=== PATIENT | male | born 1975 | race Caucasian/White ===

== ENCOUNTER 2023-05-08 10:08 | Day surgery (SDC) | payer OTHER, SELFPAY ==
--- NOTE | 2023-05-08 08:58 | W.PM.PROCNOT ---
Date of procedure: 05/08/23 Procedure: Bilateral Cervical 5/6 & 6/7 facet injection Preop diagnosis includes pain secondary to cervical spondylosis, Postop diagnosis same Under fluoroscopic guidance Solution injected: 2millilitersMarcaine 0.25% Anesthesia :none Immediate complications none Time out process compliant After informed consent obtained from the patient placed in the Prone proposition . area was prepped and draped in a sterile fashion using betadine. 25 gauge spinal needle inserted over each of the above mentioned target areas . [place] were directed towards the target under fluoroscopic guidance . after encountering each of the targets , no indication of intravascular intraneuronal or intrathecal needle tip placement. Then 0 .5 to 1 Milliliter was injected at each level. Arlington removed postoperatively. patient transferred to recovery in stable condition to be discharged home after meeting criteria Surgeon: Obed Reyes
[2023-05-08 10:26] VITALS: BP 116/79; PULSE 95; RESP 16; TEMP 36.7; O2SAT 96
[2023-05-08 11:13] VITALS: BP 127/60; PULSE 81; RESP 20; O2SAT 98
[2023-05-08 11:14] VITALS: RESP 20; O2SAT 98
[2023-05-08] MEDS: BUPIVACAINE HCL 0.25% PF 25 MG/10 ML VIAL 8 ML INJ (11:15)
[2023-05-08 11:18] VITALS: BP 114/56; PULSE 75
== END 2023-05-08 11:24 | disposition home or self-care (01) ==
LOC: SURGOUT 10:09
PROVIDERS: PCP Internal Medicine; Visit Provider Anesthesiology Pain Medicine
DX: M47.812 Spondylosis without myelopathy or radiculopathy, cervical region (principal)
CPT/HCPCS: 64490; 64491

== ENCOUNTER 2023-05-31 13:38 | Outpatient (OUT) | payer OTHER, SELFPAY ==
--- NOTE | 2023-05-31 14:20 | PM.CN ---
Consult Note: HPI Data of Consult Patient: known to practice within the last 3 years Consult date: 05/31/23 Requesting Physician: SOLOMON PEREZ NP Primary Care Provider: CHARLIE REA Consult Narrative Narrative: Here for f/u of bilat cervical MBB C5/6, C6/7 . He received 80% relief of pain for several hours after procedure along with increased fx. He would like to proceed with RFA. Procedure discussed in detail. Pain is located bilat neck pain worse with ROM, R>L . No new sensorimotor or bowel or bladder issues. No adverse med SE. Medications assist patient to be able to complete ADLs cc:: CC: SOLOMON PEREZ NP Review of Systems ROS Status of ROS 10 or more systems reviewed and unremarkable except as noted in history and below Musculoskeletal Reports: neck pain PFSH PFSH Medical History (Updated 05/31/23 @ 14:31 by SOLOMON PEREZ NP) Surgical History Meds Home Medications and Allergies Home Medications Medication Instructions Recorded Confirmed Type Lactobacillus acidophilus 10 10,000 mmu cells PO DAILY 05/01/23 05/08/23 History billion cell capsule (NewFlora) acetaminophen 650 mg 1,300 mg PO Q12H PRN pain 05/01/23 05/08/23 History tablet,extended release (8 Hour Pain Reliever) baclofen 10 mg tablet 10 mg PO BID PRN muscle spasm 05/01/23 05/08/23 History cholecalciferol (vitamin D3) 1,250 mcg PO .QD 05/01/23 History mcg/3 mL (50,000 unit/3 mL) oral drops gabapentin 400 mg capsule 400 mg PO TID 05/01/23 05/08/23 History glucosamine-chondroitin 250 mg-200 1 tab PO .AM 05/01/23 05/08/23 History mg tablet (Osteo Bi-Flex) lorazepam 1 mg tablet (Ativan) 1 mg PO BID PRN anxiety 05/01/23 05/08/23 History multivitamin 1 tab PO DAILY 05/01/23 05/08/23 History omega-3 fatty acids 500 mg PO DAILY 05/01/23 05/08/23 History quetiapine 50 mg tablet (Seroquel) 75 mg PO .HS 05/01/23 05/08/23 History sertraline 100 mg tablet (Zoloft) 100 mg PO DAILY 05/01/23 05/08/23 History vitamin B complex (Complex B-100 1 tab PO DAILY 05/01/23 05/08/23 History tablet,extended release) fluticasone 250 mcg-salmeterol 50 inhalation 05/08/23 History mcg/dose blistr powdr for inhalation (Advair Diskus) Allergies Allergy/AdvReac Type Severity Reaction Status Date / Time Penicillins Allergy Mild Verified 05/08/23 10:23 Sulfa (Sulfonamide Allergy Mild Verified 05/08/23 10:23 Antibiotics) diclofenac Allergy Verified 05/08/23 10:23 pregabalin [From Lyrica] Allergy Verified 05/08/23 10:23 Exam Constitutional Documenting provider has reviewed patient's vital signs: yes Common normals: no apparent distress, average body habitus, oriented x3, healthy appearing, alert and well nourished Orientation/consciousness: Yes awake, Yes oriented to person, Yes oriented to place and Yes oriented to time HENMT Common normals: normocephalic and moist oral mucous membranes Neck & C-Spine Common normals: supple Cervical spine: pain with cervical ROM, cervical spine tenderness, paracervical muscle tenderness and paracervical muscle spasm Other: muscle strength 3/5 bilat LE with intact sensation no arm drift BLANCA- 80 no radiculopathy Respiratory Common normals: normal respiratory effort, no retractions and no use of accessory muscles Effort & inspection: able to speak in complete sentences and symmetric chest movement Extremity Common normals: normal to inspection, normal capillary refill and no pedal edema Assessment and Plan Assessment and Plan (1) Cervical spondylosis: (2) Muscle spasm: Plan right cervical RFA C5/6 C6/7 under fluoroscopy followed by left
== END 2023-05-31 13:39 | disposition home or self-care (01) ==
LOC: PM 13:51
PROVIDERS: PCP Internal Medicine; Visit Provider Nurse Practitioner
DX: M47.812 Spondylosis without myelopathy or radiculopathy, cervical region (principal); M62.838 Other muscle spasm
CPT/HCPCS: G0463

== ENCOUNTER 2023-07-24 10:36 | Day surgery (SDC) | payer OTHER, SELFPAY ==
[2023-07-24 10:46] VITALS: BP 108/73; PULSE 86; RESP 16; TEMP 36.8; O2SAT 97
[2023-07-24] MEDS: 0.9 % SODIUM CHLORIDE 500 ML 50 ML IV (10:55)
[2023-07-24] MEDS: LIDOCAINE HCL 2% 400 MG/20 ML MDV 15 ML INJ (11:53)
[2023-07-24] MEDS: BUPIVACAINE HCL 0.25% PF 25 MG/10 ML VIAL INJ (11:53)
[2023-07-24] MEDS: METHYLPREDNISOLONE ACETATE 40 MG/ML VIAL INJ (11:54)
[2023-07-24 12:16] VITALS: BP 90/61; PULSE 76; RESP 16; TEMP 36.2; O2SAT 95
[2023-07-24 12:18] VITALS: BP 108/66; PULSE 79; RESP 18; TEMP 36.2; O2SAT 97
--- NOTE | 2023-07-24 13:14 | W.PM.PROCNOT ---
Date of procedure: 07/24/23 Pre-op diagnosis: Cervical Spondylosis Post-op diagnosis: same as pre-op Procedure: Right cervical 5/6, 6/7 Radiofrequency ablation Under fluoroscopic guidance Rhizotomy was created using radio frequency ablation at 80?C for 90 seconds 1 to 2 lesions created at each site. Post lesioning injection of 2 mL each of 0.25% Marcaine and 2% lidocaine with Depo-Medrol 40mg. 0.5 to 1 mL injected at each site IV in place yes If Intravenous fluids: NS at KVO Anesthesia local 2% lidocaine for Anesthesia Other: MAC Timeout process compliant After informed consent obtained.Patient brought to the procedure room placed in the prone position skin overlying the area was prepped and draped in a sterile fashion using betadine. 25 gauge needle was used to create a skin wheal over each of the targeted areas utilizing 2% lidocaine. A rhizotomy needle with a 10 mm active tip was inserted over each of the anesthetized areas and directed towards each of the medial branches accomplished under fluoroscopic guidance. after encountering the same we had positive sensory stimulation, negative motor stimulation was noted. lesions were then created. Post lesioning, steroid solution was injected needles removed. Patient was transferred to recovery room in stable condition to be discharged home after meeting criteria. Anesthesia: MAC Surgeon: Obed Reyes Condition: stable
== END 2023-07-24 12:35 | disposition home or self-care (01) ==
LOC: SURGOUT 10:36
PROVIDERS: PCP Internal Medicine; Visit Provider Anesthesiology Pain Medicine
PROC: (CPT 1939; principal; 2023-07-24 11:30)
DX: M47.812 Spondylosis without myelopathy or radiculopathy, cervical region (principal)
CPT/HCPCS: 64633; 64634; J1030; J2704

== ENCOUNTER 2023-08-05 01:05 | Observation (INO) | payer OTHER, SELFPAY ==
[2023-08-05] VITALS (39 sets, daily range): BP systolic 131–145; BP diastolic 74–80; PULSE 66–111; RESP 16–29; TEMP 36.6–36.8; O2SAT 97–99; BMI 34.7
--- NOTE | 2023-08-05 01:37 | ED.CHESTPAI1 ---
HPI - Chest Pain General Chief Complaint: Chest Pain Stated Complaint: chest pain Time Seen by Provider: 08/05/23 01:29 Mode of arrival: walk-in History of Present Illness HPI narrative: patient presents complaining of right sided chest pain and nausea. Started around 11PM . is now starting to ease up. Past history of DM. States he has had chest pain before but this was worse than his past chest pain. he was sitting in the car waiting for his daughter when the pain occurred. He has been experiencing chills for several weeks MD complaint: Reports chest pain Related Data Home Medications Medication Instructions Recorded Confirmed acetaminophen 650 mg 1,300 mg PO Q12H PRN pain 05/01/23 08/05/23 tablet,extended release (8 Hour Pain Reliever) baclofen 10 mg tablet 10 mg PO BID PRN muscle spasm 05/01/23 08/05/23 cholecalciferol (vitamin D3) 1,250 mcg PO .QD 05/01/23 mcg/3 mL (50,000 unit/3 mL) oral drops gabapentin 400 mg capsule 400 mg PO TID 05/01/23 08/05/23 glucosamine-chondroitin 250 mg-200 1 tab PO .AM 05/01/23 08/05/23 mg tablet (Osteo Bi-Flex) multivitamin 1 tab PO DAILY 05/01/23 08/05/23 omega-3 fatty acids 500 mg PO DAILY 05/01/23 08/05/23 quetiapine 50 mg tablet (Seroquel) 75 mg PO .HS 05/01/23 08/05/23 sertraline 100 mg tablet (Zoloft) 100 mg PO DAILY 05/01/23 08/05/23 vitamin B complex (Complex B-100 1 tab PO DAILY 05/01/23 08/05/23 tablet,extended release) fluticasone 250 mcg-salmeterol 50 inhalation 05/08/23 mcg/dose blistr powdr for inhalation (Advair Diskus) Allergies Allergy/AdvReac Type Severity Reaction Status Date / Time Penicillins Allergy Mild Verified 07/24/23 10:53 Sulfa (Sulfonamide Allergy Mild Verified 07/24/23 10:53 Antibiotics) diclofenac Allergy Verified 07/24/23 10:53 pregabalin [From Lyrica] Allergy Verified 07/24/23 10:53 Review of Systems ROS Status of ROS 10 or more systems reviewed and unremarkable except as noted in history and below [facility] Medical History (Updated 08/05/23 @ 04:38 by Flavio Holbrook MD) Surgical History Social History Smoking status: Current every day smoker Exam Constitutional Vital Signs, click to edit/add: Last Vital Signs Temp 98.2 F 08/05/23 02:31 Pulse 79 08/05/23 02:40 Resp 26 H 08/05/23 02:40 BP 145/74 H 08/05/23 02:31 Pulse Ox 98 08/05/23 02:31 O2 Del Method Room Air 08/05/23 01:08 Common normals: no apparent distress, average body habitus, oriented x3, no limitations, healthy appearing and alert Eye Common normals: EOMs intact bilaterally and conjunctivae normal Chest Common normals: inspection of chest normal, palpation of chest normal and inspection of breasts normal Respiratory Common normals: normal respiratory effort, no retractions, no use of accessory muscles and clear to auscultation bilaterally Cardio Common normals: regular rate, regular rhythm, S1 normal heart sound and S2 normal heart sound GI Common normals: Normal to inspection, nondistended, normoactive bowel sounds present, soft to palpation and non-tender Extremity Common normals: normal to inspection and full ROM Neuro Common normals: oriented x3, moves all extremities, no focal motor deficits and no sensory deficits noted Psych Appearance: grossly normal Course Vital Signs Vital signs: Vital Signs Temperature 98.3 F 08/05/23 01:08 Pulse Rate 88 08/05/23 01:08 Respiratory Rate 18 08/05/23 01:08 Blood Pressure 145/74 H 08/05/23 01:08 Pulse Oximetry 99 08/05/23 01:08 Oxygen Delivery Method Room Air 08/05/23 01:08 Temperature 98.2 F 08/05/23 02:31 Pulse Rate 79 08/05/23 02:40 Respiratory Rate 26 H 08/05/23 02:40 Blood Pressure 145/74 H 08/05/23 02:31 Pulse Oximetry 98 08/05/23 02:31 Oxygen Delivery Method Room Air 08/05/23 01:08 MDM - Chest Pain MDM Narrative Medical decision making narrative: patient presents complaining of acute onset of chest pain that occurred while at rest and associated with nausea. Has past history of fibromyalgia and bipolar depression. Pain eased up spontaneously . He has also been experiencing chills for past several weeks. No dyspnea. Resp. panel neg. D-dimer neg and serial troponin neg. EKG with noisy base but no acute changes. cxray clear. Did discuss option of observation admission with the patient and his . discuss results of test as neg but also expressed my concern that he experienced this chest pain at rest. He and his discussed it and decided he would stay for observation Lab Data Labs: Lab Results 08/05/23 08/05/23 08/05/23 Range/Units 01:16 02:19 03:31 WBC 11.2 H (4.0-11.0) 10^3/uL RBC 5.73 (4.70-6.10) 10^6/uL Hgb 16.0 (14.0-18.0) g/dL Hct 47.8 (42.0-54.0) % MCV 83.4 (80.0-94.0) fL MCH 27.9 (25.9-34.0) pg MCHC 33.5 (29.9-35.2) g/dL RDW 14.4 (11.0-15.0) % Plt Count 213 (150-450) 10^3/uL MPV 10.2 (9.5-13.5) fL Neut % (Auto) 68.9 (43.0-75.0) % Lymph % (Auto) 15.2 L (20.5-60.0) % Gillespie % (Auto) 7.8 (1.7-12.0) % Eos % (Auto) 7.2 H (0.9-7.0) % Baso % (Auto) 0.6 (0.2-2.0) % Neut # (Auto) 7.7 H (1.4-6.5) 10^3/uL Lymph # (Auto) 1.7 (1.2-3.8) 10^3/uL Gillespie # (Auto) 0.9 H (0.3-0.8) 10^3/uL Eos # (Auto) 0.8 H (0.0-0.7) 10^3/uL Baso # (Auto) 0.1 (0.0-0.1) 10^3/uL Abs Immat Gran (auto) 0.03 (0.00-0.03) 10^3/uL Imm/Tot Granulo (auto) 0.3 (0.0-0.5) % D-Dimer 0.40 (<=0.59) mg/L FEU Sodium 139 (136-145) mmol/L Potassium 3.2 L (3.5-5.1) mmol/L Chloride 105 (98-107) mmol/L Carbon Dioxide 19.7 L (21.0-32.0) mmol/L Anion Gap 17.5 BUN 11.0 (7.0-18.0) mg/dL Creatinine 1.24 (0.70-1.30) mg/dL Est GFR ( Amer) >60 (>=60) Est GFR (Non-Af Amer) >60 (>=60) BUN/Creatinine Ratio 8.9 Glucose 96 (74-106) mg/dL Calcium 9.2 (8.5-10.1) mg/dL Total Bilirubin 0.7 (0.2-1.0) mg/dL AST 16 (15-37) U/L ALT 22 (16-63) U/L Alkaline Phosphatase 68 (46-116) U/L Troponin I High Sens <4.0 L <4.0 L (4.0-76.1) pg/mL Total Protein 8.0 (6.4-8.2) g/dL Albumin 3.9 (3.4-5.0) g/dL Globulin 4.1 g/dL Albumin/Globulin Ratio 1.0 Lipase 148.0 (73.0-393.0) U/L Adenovirus (PCR) Not detected (NOT DETECTE) C. pneumoniae DNA (PCR) Not detected (NOT DETECTE) Coronavirus Type OC43 Not detected (NOT DETECTE) Coronavirus Type HKU1 Not detected (NOT DETECTE) Coronavirus Type 229E Not detected (NOT DETECTE) Coronavirus Type NL63 Not detected (NOT DETECTE) Human Metapneumovir PCR Not detected (NOT DETECTE) M. pneumoniae (PCR) Not detected (NOT DETECTE) Parainfluenza PCR Not detected (NOT DETECTE) Parainfluenza 2 (PCR) Not detected (NOT DETECTE) Parainfluenza 3 (PCR) Not detected (NOT DETECTE) Parainfluenza 4 (PCR) Not detected (NOT DETECTE) RSV (RT-PCR) Not detected (NOT DETECTE) Entero/Rhino (PCR) Not detected (NOT DETECTE) SARS-CoV-2 (PCR) Not detected (NOT DETECTE) Bordetella pertussis (PCR) Not detected (NOT DETECTE) B parapertussis DNA PCR Not detected (NOT DETECTE) Influenza Type A (PCR) Not detected (NOT DETECTE) Influenza Type B (PCR) Not detected (NOT DETECTE) Discharge Plan Discharge Chief Complaint: Chest Pain Clinical Impression: Chest pain Patient Disposition: Admitted as Observation
--- NOTE | 2023-08-05 01:39 | ECG_ITS ---
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
--- NOTE | 2023-08-05 01:39 | XR_ITS ---
The [address] [address] Patient Name: BRAD CUADRA MRN: [id number] date: 1975 Sex: M Assigned Patient Location: ER Current Patient Location: ER Accession/Order Number: [id number] Exam Date: 08/05/2023 02:06 Report Date: 08/05/2023 03:02 At the request of: JENIFFER DICKSON Procedure: XR chest 1V EXAM: XR chest 1V HISTORY: chest pain COMPARISON: None. TECHNIQUE: One view of the chest was obtained. FINDINGS: The cardiac silhouette is normal in size. The lungs are clear. There is no significant pneumothorax or pleural effusion. No acute osseous abnormality is seen. ACDF hardware is seen at the cervicothoracic junction. XR/XR chest 1V IMPRESSION: 1. No acute cardiopulmonary abnormality. Electronically authenticated by: Greyson MIRANDA Date: 08/05/2023 03:02
[2023-08-05 01:48] LABS: Basophils Absolute Auto 0.1 10^3/uL (0.0-0.1); Basophils Percent Auto 0.6 % (0.2-2.0); Eosinophils Absolute Auto 0.8 10^3/uL (0.0-0.7); Eosinophils Percent Auto 7.2 % (0.9-7.0); Hematocrit 47.8 % (42.0-54.0); Immature Granulocytes Abs Auto 0.03 10^3/uL (0.00-0.03); Immature Granulocytes Pct Auto 0.3 % (0.0-0.5); Lymphocytes Absolute Auto 1.7 10^3/uL (1.2-3.8); Lymphocytes Percent Auto 15.2 % (20.5-60.0); Mean Corpuscular HGB Conc 33.5 g/dL (29.9-35.2); Mean Corpuscular Hemoglobin 27.9 pg (25.9-34.0); Mean Corpuscular Volume 83.4 fL (80.0-94.0); Mean Platelet Volume 10.2 fL (9.5-13.5); Monocytes Absolute Auto 0.9 10^3/uL (0.3-0.8); Monocytes Percent Auto 7.8 % (1.7-12.0); Neutrophils Absolute Auto 7.7 10^3/uL (1.4-6.5); Neutrophils Percent Auto 68.9 % (43.0-75.0); Platelet Count 213 10^3/uL (150-450); Red Blood Count 5.73 10^6/uL (4.70-6.10); Red Cell Distribution Width 14.4 % (11.0-15.0); White Blood Count 11.2 10^3/uL (4.0-11.0)
[2023-08-05 01:59] LABS: Alanine Aminotransferase 22 U/L (16-63); Albumin Level 3.9 g/dL (3.4-5.0); Alkaline Phosphatase 68 U/L (46-116); Anion Gap 17.5; Aspartate Amino Transferase 16 U/L (15-37); BUN Creatinine Ratio 8.9; Bilirubin Total 0.7 mg/dL (0.2-1.0); Calcium 9.2 mg/dL (8.5-10.1); Carbon Dioxide 19.7 mmol/L (21.0-32.0); Chloride 105 mmol/L (98-107); Estimated GFR (African America >60 (>=60); Estimated GFR (Non-African Ame >60 (>=60); Globulin 4.1 g/dL; Glucose 96 mg/dL (74-106); Potassium 3.2 mmol/L (3.5-5.1); Sodium 139 mmol/L (136-145)
[2023-08-05 02:01] LABS: Troponin I High Sensitivity <4.0 pg/mL (4.0-76.1)
[2023-08-05 02:32] LABS: Adenovirus NOT DETECTED (NOT DETECTE); Bordetella parapertussis NOT DETECTED (NOT DETECTE); Coronavirus 229E NOT DETECTED (NOT DETECTE); Coronavirus HKU1 NOT DETECTED (NOT DETECTE); Coronavirus NL63 NOT DETECTED (NOT DETECTE); Coronavirus OC43 NOT DETECTED (NOT DETECTE); Human Metapneumovirus NOT DETECTED (NOT DETECTE); Human Rhinovirus/Enterovirus NOT DETECTED (NOT DETECTE); Influenza A NOT DETECTED (NOT DETECTE); Influenza B NOT DETECTED (NOT DETECTE); Mycoplasma pneumoniae NOT DETECTED (NOT DETECTE); Parainfluenza Virus 1 NOT DETECTED (NOT DETECTE); Parainfluenza Virus 2 NOT DETECTED (NOT DETECTE); Parainfluenza Virus 3 NOT DETECTED (NOT DETECTE); Parainfluenza Virus 4 NOT DETECTED (NOT DETECTE); Respiratory Syncytial Virus NOT DETECTED (NOT DETECTE); SARS-CoV-2 NOT DETECTED (NOT DETECTE)
[2023-08-05 04:05] LABS: Troponin I High Sensitivity <4.0 pg/mL (4.0-76.1)
[2023-08-05 09:47] LABS: Troponin I High Sensitivity 4.5 pg/mL (4.0-76.1)
[2023-08-05] MEDS: MULTIVITAMIN TABLET 1 TAB PO (10:38)
[2023-08-05] MEDS: GABAPENTIN 400 MG CAPSULE PO (10:38)
[2023-08-05] MEDS: SERTRALINE HCL 100 MG TABLET PO (10:38)
--- NOTE | 2023-08-05 10:54 | P.HP_ITS ---
H&P: HPI History of Present Illness Chief complaint: Chest Pain Narrative: HPI and Hospital Course 48 y o male with no prior hx of CAD presented with persistent mid sternal dull ache chest discomfort, that started acutely while he was waiting in his care last night at 11 pm. He had mild nausea associated with pain but denies SOB, palpitations or dizziness. Her reports going back but his pain continued to get worse so he came to ED for evaluation. Patient's pain eased off after he was treated for chest pain in ED. But he still has mild chest discomfort. Patient denies prior hx of CAD, testing for CAD and experiences chest discomfort intermittently but never experienced pain like he p/w last night. He has hx of BENJAMÍN, Bipolar 2 depression and Panic disorder and his medication was recently adjusted. He also reports hx of fibromyalgia and that his body hurts all over intermittently. Reports chronic diarrhea for 3 months with no change in the character/severity. Normal EGD/colonoscopy earlier this year. He reports hi felt his pain got worse after drinking water and it felt like there was food stuck in his esophagus. His w/u included EKG, trop, CBC, CMP, CXR - no sig abnormality noted. D/w patient about outpatient vs inpatient w/u CAD - he felt comfortable going home and d/w his PCP as outpatient. Patient educated on worrisome signs and symptoms for CAD/ACS and instructed to come to ED if he developed those symptoms. Admission Diagnosis Chest pain r/o ACS Bipolar depression Panic disorder Fibromyalgia. Discharge Diagnosis as above Discharge status stable Review of Systems ROS Status of ROS 10 or more systems reviewed and unremarkable except as noted in history and below [facility] Medical History (Updated 08/05/23 @ 11:10 by Shaikh Sandy MD) Surgical History Family History Father Family history of COPD (chronic obstructive pulmonary disease) Family history of diabetes mellitus Family history of hypertension Mother Family history of COPD (chronic obstructive pulmonary disease) Brother Family history of cancer Uncle Family history of stroke Social History Within the past year, how often did you have a drink containing alcohol: never Within the past year, how often did you have six or more drinks on one occasion: never Score interpretation: A score less than 4 is consistent with normal alcohol consumption. Smoking status: Former smoker Second hand tobacco smoke exposure: Yes Non-prescribed substance use: cannabis (any form) Previous occupational history: unemployed Known occupational exposures/hazards: No Highest level of school completed/degree received: some college, no degree Do you want help with school or training: No Are you now , , , , never or living with a partner: living with partner In a typical week, how many times do you talk on the telephone with family, friends, or neighbors: 3 or more times per week How often do you get together with friends or relatives: 3 or more times per week How often do you attend adventism or roman catholic services: never Do you belong to any clubs or organizations such as adventism groups unions, [employer] or athletic groups, or school groups: no Total score: 2 Score interpretation: A score of greater than or equal to 2 indicates the lowest level of social isolation. Little interest or pleasure in doing things: not at all Feeling down, depressed, or hopeless: several days Feel stressed/tense/nervous/anxious/difficulty sleeping: very much Life stressors: other Life stressor details: health Due to disability, difficulty making decisions: No Do you think of yourself as: straight/heterosexual Gender Identity: male Meds Home Medications and Allergies Home Medications Medication Instructions Recorded Confirmed Type acetaminophen 650 mg 1,300 mg PO Q12H PRN pain 05/01/23 08/05/23 History tablet,extended release (8 Hour Pain Reliever) baclofen 10 mg tablet 10 mg PO BID PRN muscle spasm 05/01/23 08/05/23 History cholecalciferol (vitamin D3) 1,250 mcg PO .QD 05/01/23 History mcg/3 mL (50,000 unit/3 mL) oral drops gabapentin 400 mg capsule 400 mg PO TID 05/01/23 08/05/23 History glucosamine-chondroitin 250 mg-200 1 tab PO .AM 05/01/23 08/05/23 History mg tablet (Osteo Bi-Flex) multivitamin 1 tab PO DAILY 05/01/23 08/05/23 History omega-3 fatty acids 500 mg PO DAILY 05/01/23 08/05/23 History quetiapine 50 mg tablet (Seroquel) 75 mg PO .HS 05/01/23 08/05/23 History sertraline 100 mg tablet (Zoloft) 100 mg PO DAILY 05/01/23 08/05/23 History vitamin B complex (Complex B-100 1 tab PO DAILY 05/01/23 08/05/23 History tablet,extended release) fluticasone 250 mcg-salmeterol 50 inhalation 05/08/23 History mcg/dose blistr powdr for inhalation (Advair Diskus) Allergies Allergy/AdvReac Type Severity Reaction Status Date / Time Penicillins Allergy Mild Verified 07/24/23 10:53 Sulfa (Sulfonamide Allergy Mild Verified 07/24/23 10:53 Antibiotics) diclofenac Allergy Verified 07/24/23 10:53 pregabalin [From Lyrica] Allergy Verified 07/24/23 10:53 Exam Constitutional Vital Signs, click to edit/add: Last Vital Signs Temp 97.8 F 08/05/23 06:52 Pulse 73 08/05/23 09:47 Resp 18 08/05/23 06:52 BP 134/74 08/05/23 06:52 Pulse Ox 97 08/05/23 06:52 O2 Del Method Room Air 08/05/23 08:01 Documenting provider has reviewed patient's vital signs: yes Common normals: no apparent distress and oriented x3 General appearance: cooperative HENMT Common normals: normocephalic and head/scalp atraumatic Head and scalp: normocephalic and atraumatic Eye Common normals: conjunctivae normal and no scleral icterus Conjunctiva: conjunctiva(e) normal Respiratory Common normals: normal respiratory effort and clear to auscultation bilaterally Effort & inspection: able to speak in complete sentences Auscultation: clear to auscultation bilaterally Cardio Common normals: regular rate, S1 normal heart sound and S2 normal heart sound Rate: regular rate Heart sounds: S1 normal and S2 normal GI Common normals: Normal to inspection, nondistended, normoactive bowel sounds present, soft to palpation, non-tender and no hepatosplenomegaly Palpation: soft and no hepatosplenomegaly Extremity Common normals: no clubbing, cyanosis or edema Neuro Common normals: oriented x3, moves all extremities and no focal motor deficits Psych Common normals: mental status grossly normal, denies hallucinations, denies homicidal ideation and denies suicidal ideation Results Labs Labs: Short CBC 08/05/23 Range/Units 01:16 WBC 11.2 H (4.0-11.0) 10^3/uL Hgb 16.0 (14.0-18.0) g/dL Hct 47.8 (42.0-54.0) % Plt Count 213 (150-450) 10^3/uL BMP 08/05/23 01:16 Sodium 139 Potassium 3.2 L Chloride 105 Carbon Dioxide 19.7 L BUN 11.0 Creatinine 1.24 Glucose 96 Calcium 9.2 Liver Function 08/05/23 Range/Units 01:16 Total Bilirubin 0.7 (0.2-1.0) mg/dL AST 16 (15-37) U/L ALT 22 (16-63) U/L Alkaline Phosphatase 68 (46-116) U/L Albumin 3.9 (3.4-5.0) g/dL Assessment and Plan Assessment and Plan (1) Chest pain: Assessment and Plan: Trop x 3 negative. No sig abnormality noted on EKG Heart score = 2. D/w patient - will d/c home and patient will f/u with PCP for outpatient to pursue outpatient diagnostic w/u for CAD. Qualifiers: Chest pain type: unspecified Qualified Code(s): R07.9 - Chest pain, unspecified (2) Bipolar depression: Assessment and Plan: on Seroquel, Zoloft and Gabapentin Patient reports poorly controlled depression and that his Zoloft was recently increased as outpatient. No SI/HI. Outpatient f/u (3) BENJAMÍN (generalized anxiety disorder): Assessment and Plan: C/w meds as before. Outpatient f/u (4) COPD (chronic obstructive pulmonary disease): Assessment and Plan: On Advair. Stable. No active wheezing noted. (5) Fibromyalgia: Assessment and Plan: On gabapentin. c/w same. Plan Stable for d/c. Patient to f/u with PCP in one week.
--- NOTE | 2023-08-06 12:14 | CM.DCFOLLOWU ---
1st attempt follow up call made by Frida Martinez on 08/06/23, no answer at this time.
--- NOTE | 2023-08-07 15:43 | CM.DCFOLLOWU ---
Person spoke with: patient How are you feeling? well How is your pain? no pain Did you understand your discharge instructions? yes Do you have any questions about your discharge instructions? no Were you given any prescriptions at discharge? no Were you able to get your prescriptions filled? Do you understand how to take your medications as ordered? yes Do you have any questions about your follow up appointment and do you plan to keep your follow up appointment? no questions, had follow up on Monday 08/06. Is there anything else that you would like to discuss? no Questions/Comments/Concerns/Other:
== END 2023-08-05 12:20 | disposition home or self-care (01) ==
LOC: ER 05:23 → MS 06:34
PROVIDERS: Admitting Provider Internal Medicine; Emergency Provider Internal Medicine; PCP Internal Medicine; Visit Provider Internal Medicine
DX: R07.9 Chest pain, unspecified (principal); F31.9 Bipolar disorder, unspecified; M79.7 Fibromyalgia; F41.0 Panic disorder [episodic paroxysmal anxiety]; Z87.891 Personal history of nicotine dependence; Z79.899 Other long term (current) drug therapy; Z20.822 Contact with and (suspected) exposure to COVID-19
CPT/HCPCS: 0202U; 36415; 71045; 80053; 83690; 84484; 85025; 85378; 93005; 99285; G0378

== ENCOUNTER 2023-08-07 08:32 | Day surgery (SDC) | payer OTHER, SELFPAY ==
[2023-08-07 09:05] VITALS: BP 124/82; PULSE 91; RESP 16; TEMP 36.4; O2SAT 97
[2023-08-07] MEDS: 0.9 % SODIUM CHLORIDE 500 ML 50 ML IV (09:15)
[2023-08-07] MEDS: BUPIVACAINE HCL 0.25% PF 25 MG/10 ML VIAL 4 ML INJ (10:10)
[2023-08-07] MEDS: LIDOCAINE HCL 2% 400 MG/20 ML MDV 8 ML INJ (10:10)
[2023-08-07] MEDS: METHYLPREDNISOLONE ACETATE 40 MG/ML VIAL INJ (10:11)
--- NOTE | 2023-08-07 10:21 | W.PM.PROCNOT ---
Date of procedure: 08/07/23 Pre-op diagnosis: Cervical Spondylosis Post-op diagnosis: same as pre-op Procedure: Left Cervical 5/6, 6/7 Radiofrequency ablation Under fluoroscopic guidance Rhizotomy was created using radio frequency ablation at 80?C for 90 seconds 1 to 2 lesions created at each site. Post lesioning injection of 2 mL each of 0.25% Marcaine and 2% lidocaine with Depo-Medrol 40mg. 0.5 to 1 mL injected at each site IV in place yes If Intravenous fluids: NS at KVO Anesthesia local 2% lidocaine for Anesthesia Other: MAC Timeout process compliant After informed consent obtained.Patient brought to the procedure room placed in the prone position skin overlying the area was prepped and draped in a sterile fashion using betadine. 25 gauge needle was used to create a skin wheal over each of the targeted areas utilizing 2% lidocaine. A rhizotomy needle with a 10 mm active tip was inserted over each of the anesthetized areas and directed towards each of the medial branches accomplished under fluoroscopic guidance. after encountering the same we had positive sensory stimulation, negative motor stimulation was noted. lesions were then created. Post lesioning, steroid solution was injected needles removed. Patient was transferred to recovery room in stable condition to be discharged home after meeting criteria. Anesthesia: MAC Surgeon: Obed Reyes Condition: stable
[2023-08-07 10:23] VITALS: BP 116/70; PULSE 89; RESP 18; TEMP 36.3; O2SAT 96
[2023-08-07 10:27] VITALS: BP 113/81; PULSE 88; RESP 16; TEMP 36.3; O2SAT 95
== END 2023-08-07 10:48 | disposition home or self-care (01) ==
LOC: SURGOUT 08:33
PROVIDERS: PCP Internal Medicine; Visit Provider Anesthesiology Pain Medicine
PROC: (CPT 1992; principal; 2023-08-07 09:30)
DX: M47.812 Spondylosis without myelopathy or radiculopathy, cervical region (principal)
CPT/HCPCS: 64633; 64634; J1030; J2704

== ENCOUNTER 2023-09-05 14:52 | Outpatient (OUT) | payer OTHER, SELFPAY ==
--- NOTE | 2023-09-05 15:15 | PM.CN ---
Consult Note: HPI Data of Consult Requesting Physician: Perlita Cunha NP Primary Care Provider: Non-Staff Physician, MD Consult Narrative Reason for consult: f/u Narrative: Magnus García a pleasant 48 year old male presents for evaluation and management of chronic pain. Patient rating pain today 01/26. RFAs to cervical spine providing 75% pain relief and functional improvement. Patient benefits from current medication regimen and medical marijuana. cc:: CC: Perlita Cunha NP Review of Systems ROS Status of ROS 10 or more systems reviewed and unremarkable except as noted in history and below Musculoskeletal Reports: back pain and neck pain PFSH PFSH Medical History Angina at rest ?I20.8 - Other forms of angina pectoris (ICD-10) Anxiety ?F41.9 - Anxiety disorder, unspecified (ICD-10) Bipolar depression ?F31.9 - Bipolar disorder, unspecified (ICD-10) Cancer ?C80.1 - Malignant (primary) neoplasm, unspecified (ICD-10) Cervical spondylosis ?M47.812 - Spondylosis without myelopathy or radiculopathy, cervical region (ICD-10) Chest pain ?R07.9 - Chest pain, unspecified (ICD-10) COPD (chronic obstructive pulmonary disease) ?J44.9 - Chronic obstructive pulmonary disease, unspecified (ICD-10) Fibromyalgia ?M79.7 - Fibromyalgia (ICD-10) Former smoker ?Z87.891 - Personal history of nicotine dependence (ICD-10) BENJAMÍN (generalized anxiety disorder) ?F41.1 - Generalized anxiety disorder (ICD-10) H/O alcohol abuse ?F10.11 - Alcohol abuse, in remission (ICD-10) Low back pain ?M54.50 - Low back pain, unspecified (ICD-10) Muscle spasm ?M62.838 - Other muscle spasm (ICD-10) Neck pain ?M54.2 - Cervicalgia (ICD-10) Numbness and tingling ?R20.0 - Anesthesia of skin (ICD-10) ?R20.2 - Paresthesia of skin (ICD-10) Panic disorder ?F41.0 - Panic disorder [episodic paroxysmal anxiety] (ICD-10) 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 - Unspecified malignant neoplasm of skin, unspecified (ICD-10) Rheumatoid arthritis ?M06.9 - Rheumatoid arthritis, unspecified (ICD-10) TMJ (dislocation of temporomandibular joint) ?S03.00XA - Dislocation of jaw, unspecified side, initial encounter (ICD-10) Surgical History H/O cervical spine surgery ?Z98.890 - Other specified postprocedural states (ICD-10) History of arthroscopy of right shoulder ?Z98.890 - Other specified postprocedural states (ICD-10) History of surgical removal of skin lesion ?Z98.890 - Other specified postprocedural states (ICD-10) ?Z87.2 - Personal history of diseases of the skin and subcutaneous tissue (ICD-10) Family History Father Family history of COPD (chronic obstructive pulmonary disease) Family history of diabetes mellitus Family history of hypertension Mother Family history of COPD (chronic obstructive pulmonary disease) Brother Family history of cancer Uncle Family history of stroke Social History Within the past year, how often did you have a drink containing alcohol: never Within the past year, how often did you have six or more drinks on one occasion: never Score interpretation: A score less than 4 is consistent with normal alcohol consumption. Smoking status: Former smoker Second hand tobacco smoke exposure: Yes Non-prescribed substance use: cannabis (any form) Previous occupational history: unemployed Known occupational exposures/hazards: No Highest level of school completed/degree received: some college, no degree Do you want help with school or training: No Are you now , , , , never or living with a partner: living with partner In a typical week, how many times do you talk on the telephone with family, friends, or neighbors: 3 or more times per week How often do you get together with friends or relatives: 3 or more times per week How often do you attend scientologist or mandaen services: never Do you belong to any clubs or organizations such as scientologist groups unions, fraternal or athletic groups, or school groups: no Total score: 2 Score interpretation: A score of greater than or equal to 2 indicates the lowest level of social isolation. Little interest or pleasure in doing things: not at all Feeling down, depressed, or hopeless: several days Feel stressed/tense/nervous/anxious/difficulty sleeping: very much Life stressors: other Life stressor details: health Due to disability, difficulty making decisions: No Do you think of yourself as: straight/heterosexual Gender Identity: male Meds Home Medications and Allergies Home Medications Medication Instructions Recorded Confirmed Type acetaminophen 650 mg 1,300 mg PO Q12H PRN pain 05/01/23 08/07/23 History tablet,extended release (8 Hour Pain Reliever) baclofen 10 mg tablet 10 mg PO BID PRN muscle spasm 05/01/23 08/07/23 History cholecalciferol (vitamin D3) 1,250 mcg PO .QD 05/01/23 History mcg/3 mL (50,000 unit/3 mL) oral drops gabapentin 400 mg capsule 400 mg PO TID 05/01/23 08/07/23 History glucosamine-chondroitin 250 mg-200 1 tab PO .AM 05/01/23 08/07/23 History mg tablet (Osteo Bi-Flex) multivitamin 1 tab PO DAILY 05/01/23 08/07/23 History omega-3 fatty acids 500 mg PO DAILY 05/01/23 08/07/23 History quetiapine 50 mg tablet (Seroquel) 75 mg PO .HS 05/01/23 08/07/23 History sertraline 100 mg tablet (Zoloft) 100 mg PO DAILY 05/01/23 08/07/23 History vitamin B complex (Complex B-100 1 tab PO DAILY 05/01/23 08/07/23 History tablet,extended release) fluticasone 250 mcg-salmeterol 50 inhalation 05/08/23 History mcg/dose blistr powdr for inhalation (Advair Diskus) albuterol sulfate 90 mcg/actuation 2 puff inhalation PRN 09/05/23 09/05/23 History aerosol inhaler pqolsepqbd-cqjvqufovfipu-difcywra tab PRN 09/05/23 History 50 mg-325 mg-40 mg tablet hydroxyzine pamoate 25 mg capsule 25 mg PO Q8H PRN anxiety 09/05/23 09/05/23 History (Vistaril) lorazepam 1 mg tablet mg PRN 09/05/23 History quetiapine 100 mg tablet mg .HS 09/05/23 History sertraline 100 mg tablet (Zoloft) 100 mg PO BID 09/05/23 09/05/23 History trazodone 50 mg tablet mg .HS PRN insomnia 09/05/23 History Allergies Allergy/AdvReac Type Severity Reaction Status Date / Time Penicillins Allergy Mild Verified 08/07/23 09:11 Sulfa (Sulfonamide Allergy Mild Verified 08/07/23 09:11 Antibiotics) diclofenac Allergy Verified 08/07/23 09:11 pregabalin [From Lyrica] Allergy Verified 08/07/23 09:11 Exam Constitutional Vital Signs, click to edit/add: Last Vital Signs Temp 97.8 F 08/05/23 06:52 Pulse 73 08/05/23 09:47 Resp 18 08/05/23 06:52 BP 134/74 08/05/23 06:52 Pulse Ox 97 08/05/23 06:52 O2 Del Method Room Air 08/05/23 08:01 Documenting provider has reviewed patient's vital signs: yes Common normals: no apparent distress and oriented x3 General appearance: cooperative HENMT Common normals: normocephalic and head/scalp atraumatic Head and scalp: normocephalic and atraumatic Eye Common normals: conjunctivae normal and no scleral icterus Conjunctiva: conjunctiva(e) normal Respiratory Common normals: normal respiratory effort and clear to auscultation bilaterally Effort & inspection: able to speak in complete sentences Auscultation: clear to auscultation bilaterally Cardio Common normals: regular rate, S1 normal heart sound and S2 normal heart sound Rate: regular rate Heart sounds: S1 normal and S2 normal GI Common normals: Normal to inspection, nondistended, normoactive bowel sounds present, soft to palpation, non-tender and no hepatosplenomegaly Palpation: soft and no hepatosplenomegaly Back & Pelvis Thoracic spine/upper back: ROM limited and pain with ROM Lumbar spine/lower back: ROM limited, pain with ROM and straight leg raise negative bilaterally Extremity Common normals: normal to inspection Neuro Common normals: oriented x3, moves all extremities and no focal motor deficits Gait (neuro): antalgic Motor exam: strength abnormal (4/5 BUE BLE) Psych Common normals: mental status grossly normal, denies hallucinations, denies homicidal ideation and denies suicidal ideation Assessment and Plan Assessment and Plan (1) Lumbar radiculopathy: Assessment and Plan: The patient has had over 3 months of moderate to severe low back pain with radiculopathy with functional impairment and inadequate response to conservative care including NSAIDS (unless there are contraindication such as concurrent blood thinners), multiple oral or topical pain medications, and home exercise program/physical therapy.? Patient has completed >6 weeks of guided home exercise program and/or formal physical therapy program without relief of their symptoms.?PT worsened symptoms and he had to stop I have reviewed the imaging of the lumbar spine and no red flags were identified.? The imaging reveals radiographic findings consistent with lumbar radiculopathy The Oswestry Disability Index was completed, and the patient scored a 72%.? We discussed the risks and benefits of the procedure with the patient, and we are NOT planning on using sedation as outlined in the guidelines from Medicare unless there is a documented reason that sedation would be strongly recommended.?? ?The procedure will be completed with fluoroscopic guidance.? (2) Fibromyalgia: (3) Numbness and tingling: (4) Lumbar spondylosis: (5) Myalgia: Plan L4-5 LOS for radiculopathy unresponsive to PT, medications, and conservative measures continue baclofen 10mg BID PRN f/u 2 weeks after LOS
== END 2023-09-05 14:53 | disposition home or self-care (01) ==
LOC: PM 14:59
PROVIDERS: Visit Provider Nurse Practitioner
DX: M47.26 Other spondylosis with radiculopathy, lumbar region (principal); M79.7 Fibromyalgia; R20.0 Anesthesia of skin; R20.2 Paresthesia of skin
CPT/HCPCS: G0463

== ENCOUNTER 2023-09-11 20:02 | Outpatient (OUT) | payer OTHER, SELFPAY | END 2023-09-11 20:03 | disposition home or self-care (01) | LOC: SLEEP 20:03 | DX: G47.33 Obstructive sleep apnea (adult) (pediatric) (principal) | CPT/HCPCS: 95810 ==

== ENCOUNTER 2023-09-24 10:59 | Outpatient (OUT) | payer OTHER, SELFPAY ==
--- NOTE | 2023-09-24 11:04 | XR_ITS ---
The [address] [address] Patient Name: BRAD CUADRA MRN: [id number] date: 1975 Sex: M Assigned Patient Location: [facility] Current Patient Location: Accession/Order Number: [id number] Exam Date: 09/24/2023 11:15 Report Date: 09/25/2023 06:58 At the request of: VIPIN OSORIO Procedure: XR foot RT min 3V EXAM: XR foot RT min 3V HISTORY: Right Ankle Pain M79.671 COMPARISON: None. TECHNIQUE: Routine views of the XR foot RT min 3V FINDINGS/ XR/XR foot RT min 3V IMPRESSION: 1. No acute fractures. Achilles enthesophyte. 2. Unremarkable soft tissues. 3. Normal joint spacing. 4. Please note that the calcaneus nor the forefoot not completely imaged on the lateral. Electronically authenticated by: DALTON DELGADO Date: 09/25/2023 06:58
== END 2023-09-24 11:00 | disposition home or self-care (01) ==
LOC: RAD 10:59
PROVIDERS: Visit Provider Orthopaedic Surgery
DX: M79.671 Pain in right foot (principal); M77.51 Other enthesopathy of right foot and ankle
CPT/HCPCS: 73630

== ENCOUNTER 2023-09-25 11:35 | Day surgery (SDC) | payer OTHER, SELFPAY ==
[2023-09-25 11:51] VITALS: BP 103/67; PULSE 68; RESP 16; TEMP 36.3; O2SAT 95
[2023-09-25 12:47] VITALS: BP 122/63; PULSE 68; RESP 18; O2SAT 96
[2023-09-25] MEDS: IOHEXOL 300 MG/ML - 50 ML BTL 18 MG INJ (12:47)
[2023-09-25] MEDS: LIDOCAINE HCL 2% PF 100 MG/5 ML VIAL 2 ML INJ (12:47)
[2023-09-25] MEDS: METHYLPREDNISOLONE ACETATE 80 MG/ML VIAL INJ (12:47)
[2023-09-25] MEDS: 0.9 % SODIUM CHLORIDE 10 ML SYRINGE - SALINE FLUSH 2 ML INJ (12:47)
[2023-09-25] MEDS: BUPIVACAINE HCL 0.25% PF 25 MG/10 ML VIAL 2 ML INJ (12:47)
[2023-09-25 12:48] VITALS: BP 120/65; PULSE 64; RESP 16; O2SAT 95
--- NOTE | 2023-09-25 13:10 | P.ON_ITS ---
Date of procedure: 09/25/23 Pre-op diagnosis: Lumbar radiculopathy Post-op diagnosis: same as pre-op Procedure: Lumbar 4/5 Epidural Steroid Injection Under fluoroscopic guidance Immediate complications none Solution used for injection: Marcaine 0.25% 2mL, 2cc Normal saline, Depo-Medrol 80mg Omnipaque 3 mL Anesthesia local 2% lidocaine up to 4ml Timeout process compliant After informed consent obtained. Patient brought to the procedure room placed in the prone position. Skin overlying the area was prepped and draped in a sterile fashion using betadine. 25 gauge needle used to raise a skin wheel with local anesthetic over the target area identified under fluoroscopy. A 17 gauge Touhy needle Was inserted over the anesthetized area and directed towards the inter- space under fluoroscopic guidance. Epidural space was identified with loss of resistance technique to air. Needle Tip placement confirmed with injection of contrast solution. Steroid solution was then injected. Anesthesia: Local Surgeon: Obed Reyes Condition: stable
== END 2023-09-25 12:53 | disposition home or self-care (01) ==
LOC: SURGOUT 11:35
PROVIDERS: Visit Provider Anesthesiology Pain Medicine
DX: M54.16 Radiculopathy, lumbar region (principal)
CPT/HCPCS: 62323; J1040; Q9967

== ENCOUNTER 2023-10-15 13:43 | Outpatient (OUT) | payer OTHER, SELFPAY ==
--- NOTE | 2023-10-15 13:48 | XR_ITS ---
The [address] [address] Patient Name: BRAD CUADRA MRN: [id number] date: 1975 Sex: M Assigned Patient Location: [facility] Current Patient Location: Accession/Order Number: [id number] Exam Date: 10/15/2023 13:50 Report Date: 10/16/2023 20:19 At the request of: DEMETRIS ALVAREZ Procedure: XR foot RT min 3V EXAM: XR foot RT min 3V HISTORY: Right Foot Pain COMPARISON: None. FINDINGS: 5 radiographs of the right foot were obtained. No acute fracture or dislocation. Mild degenerative changes to the right foot. Bipartite hallux sesamoid morphology. Prominent plantar and Achilles heel spurs. XR/XR foot RT min 3V IMPRESSION: No acute fracture or dislocation. Prominent plantar and Achilles heel spurs. Electronically authenticated by: JIMMY GAY Date: 10/16/2023 20:19
== END 2023-10-15 13:44 | disposition home or self-care (01) ==
LOC: RAD 13:44
PROVIDERS: PCP Internal Medicine; Visit Provider Physician Assistant
DX: M79.671 Pain in right foot (principal); M77.51 Other enthesopathy of right foot and ankle
CPT/HCPCS: 73630

== ENCOUNTER 2023-10-15 14:54 | Outpatient (OUT) | payer OTHER, SELFPAY | END 2023-10-15 14:55 | disposition home or self-care (01) | LOC: WC 14:54 | PROVIDERS: PCP Internal Medicine; Visit Provider Physician Assistant | DX: M79.671 Pain in right foot (principal); M77.51 Other enthesopathy of right foot and ankle; L89.892 Pressure ulcer of other site, stage 2 | CPT/HCPCS: 73630; G0463 ==

== ENCOUNTER 2023-10-18 13:38 | Outpatient (OUT) | payer OTHER, SELFPAY ==
--- NOTE | 2023-10-18 13:53 | P.CN_ITS ---
Consult Note: HPI Data of Consult Patient: known to practice within the last 3 years Requesting Physician: Perlita Cunha NP Primary Care Provider: CHARLIE REA Consult Narrative Reason for consult: f/u Narrative: Magnus García a pleasant 48 year old male presents for evaluation and management of chronic pain. Patient rating pain today 04/28. RFAs to cervical spine providing 50% pain relief and functional improvement. Patient benefits from current medication regimen and medical marijuana but still continues to have pain with fibromyalgia. Unfortunately patient had no relief from L4-5 LOS, continues to have whole body pain, numbness, tingling, weakness to bilalteral legs. cc:: CC: Perlita Cunha NP Review of Systems ROS Status of ROS 10 or more systems reviewed and unremarkable except as noted in history and below Musculoskeletal Reports: back pain, neck pain, extremity pain and joint pain PFSH PFSH Medical History Angina at rest ?I20.8 - Other forms of angina pectoris (ICD-10) Anxiety ?F41.9 - Anxiety disorder, unspecified (ICD-10) Bipolar depression ?F31.9 - Bipolar disorder, unspecified (ICD-10) Cancer ?C80.1 - Malignant (primary) neoplasm, unspecified (ICD-10) Cervical spondylosis ?M47.812 - Spondylosis without myelopathy or radiculopathy, cervical region (ICD-10) Chest pain ?R07.9 - Chest pain, unspecified (ICD-10) COPD (chronic obstructive pulmonary disease) ?J44.9 - Chronic obstructive pulmonary disease, unspecified (ICD-10) Fibromyalgia ?M79.7 - Fibromyalgia (ICD-10) Former smoker ?Z87.891 - Personal history of nicotine dependence (ICD-10) BENJAMÍN (generalized anxiety disorder) ?F41.1 - Generalized anxiety disorder (ICD-10) H/O alcohol abuse ?F10.11 - Alcohol abuse, in remission (ICD-10) Low back pain ?M54.50 - Low back pain, unspecified (ICD-10) Muscle spasm ?M62.838 - Other muscle spasm (ICD-10) Neck pain ?M54.2 - Cervicalgia (ICD-10) Numbness and tingling ?R20.0 - Anesthesia of skin (ICD-10) ?R20.2 - Paresthesia of skin (ICD-10) Panic disorder ?F41.0 - Panic disorder [episodic paroxysmal anxiety] (ICD-10) 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 - Unspecified malignant neoplasm of skin, unspecified (ICD-10) Rheumatoid arthritis ?M06.9 - Rheumatoid arthritis, unspecified (ICD-10) TMJ (dislocation of temporomandibular joint) ?S03.00XA - Dislocation of jaw, unspecified side, initial encounter (ICD-10) Surgical History H/O cervical spine surgery ?Z98.890 - Other specified postprocedural states (ICD-10) History of arthroscopy of right shoulder ?Z98.890 - Other specified postprocedural states (ICD-10) History of surgical removal of skin lesion ?Z98.890 - Other specified postprocedural states (ICD-10) ?Z87.2 - Personal history of diseases of the skin and subcutaneous tissue (ICD-10) Family History Father Family history of COPD (chronic obstructive pulmonary disease) Family history of diabetes mellitus Family history of hypertension Mother Family history of COPD (chronic obstructive pulmonary disease) Brother Family history of cancer Uncle Family history of stroke Social History Within the past year, how often did you have a drink containing alcohol: never Within the past year, how often did you have six or more drinks on one occasion: never Score interpretation: A score less than 4 is consistent with normal alcohol consumption. Smoking status: Former smoker Second hand tobacco smoke exposure: Yes Non-prescribed substance use: cannabis (any form) Previous occupational history: unemployed Known occupational exposures/hazards: No Highest level of school completed/degree received: some college, no degree Do you want help with school or training: No Are you now , , , , never or living with a partner: living with partner In a typical week, how many times do you talk on the telephone with family, friends, or neighbors: 3 or more times per week How often do you get together with friends or relatives: 3 or more times per week How often do you attend latter-day or congregational services: never Do you belong to any clubs or organizations such as latter-day groups unions, fraternal or athletic groups, or school groups: no Total score: 2 Score interpretation: A score of greater than or equal to 2 indicates the lowest level of social isolation. Little interest or pleasure in doing things: not at all Feeling down, depressed, or hopeless: several days Feel stressed/tense/nervous/anxious/difficulty sleeping: very much Life stressors: other Life stressor details: health Due to disability, difficulty making decisions: No Do you think of yourself as: straight/heterosexual Gender Identity: male Meds Home Medications and Allergies Home Medications Medication Instructions Recorded Confirmed Type acetaminophen 650 mg 1,300 mg PO Q12H PRN pain 05/01/23 09/25/23 History tablet,extended release (8 Hour Pain Reliever) baclofen 10 mg tablet 10 mg PO BID PRN muscle spasm 05/01/23 09/25/23 History cholecalciferol (vitamin D3) 1,250 mcg PO .QD 05/01/23 History mcg/3 mL (50,000 unit/3 mL) oral drops gabapentin 400 mg capsule 400 mg PO TID 05/01/23 09/25/23 History glucosamine-chondroitin 250 mg-200 1 tab PO .AM 05/01/23 09/25/23 History mg tablet (Osteo Bi-Flex) multivitamin 1 tab PO DAILY 05/01/23 09/25/23 History omega-3 fatty acids 500 mg PO DAILY 05/01/23 09/25/23 History quetiapine 50 mg tablet (Seroquel) 75 mg PO .HS 05/01/23 09/25/23 History sertraline 100 mg tablet (Zoloft) 100 mg PO DAILY 05/01/23 09/25/23 History vitamin B complex (Complex B-100 1 tab PO DAILY 05/01/23 09/25/23 History tablet,extended release) fluticasone 250 mcg-salmeterol 50 inhalation 05/08/23 History mcg/dose blistr powdr for inhalation (Advair Diskus) albuterol sulfate 90 mcg/actuation 2 puff inhalation PRN 09/05/23 09/25/23 History aerosol inhaler jkovjwladg-ywfrrxpkkgopu-cetfuoza tab PRN 09/05/23 History 50 mg-325 mg-40 mg tablet hydroxyzine pamoate 25 mg capsule 25 mg PO Q8H PRN anxiety 09/05/23 09/25/23 History (Vistaril) lorazepam 1 mg tablet mg PRN 09/05/23 History quetiapine 100 mg tablet 100 mg .HS 09/05/23 History trazodone 50 mg tablet mg .HS PRN insomnia 09/05/23 History Allergies Allergy/AdvReac Type Severity Reaction Status Date / Time Penicillins Allergy Mild Verified 08/07/23 09:11 Sulfa (Sulfonamide Allergy Mild Verified 08/07/23 09:11 Antibiotics) diclofenac Allergy Verified 08/07/23 09:11 pregabalin [From Lyrica] Allergy Verified 08/07/23 09:11 Exam Constitutional Vital Signs, click to edit/add: Last Vital Signs Temp 97.8 F 08/05/23 06:52 Pulse 73 08/05/23 09:47 Resp 18 08/05/23 06:52 BP 134/74 08/05/23 06:52 Pulse Ox 97 08/05/23 06:52 O2 Del Method Room Air 08/05/23 08:01 Documenting provider has reviewed patient's vital signs: yes (see paper chart for details) Common normals: no apparent distress and oriented x3 General appearance: cooperative Nutritional appearance: obese HENMT Common normals: normocephalic and head/scalp atraumatic Head and scalp: normocephalic and atraumatic Eye Common normals: conjunctivae normal and no scleral icterus Conjunctiva: conjunctiva(e) normal Respiratory Common normals: normal respiratory effort and clear to auscultation bilaterally Effort & inspection: able to speak in complete sentences Auscultation: clear to auscultation bilaterally Cardio Common normals: regular rate, S1 normal heart sound and S2 normal heart sound Rate: regular rate Heart sounds: S1 normal and S2 normal GI Common normals: Normal to inspection, nondistended, normoactive bowel sounds present, soft to palpation, non-tender and no hepatosplenomegaly Palpation: soft and no hepatosplenomegaly Back & Pelvis Thoracic spine/upper back: ROM limited and pain with ROM Lumbar spine/lower back: ROM limited, pain with ROM and straight leg raise negative bilaterally Extremity Common normals: normal to inspection Neuro Common normals: oriented x3, moves all extremities and no focal motor deficits Gait (neuro): antalgic Motor exam: strength abnormal (4/5 BUE BLE) Psych Common normals: mental status grossly normal, denies hallucinations, denies homicidal ideation and denies suicidal ideation Assessment and Plan Assessment and Plan (1) Myalgia: (2) Fibromyalgia: (3) Lumbar spondylosis: (4) Lumbar radiculopathy: (5) BENJAMÍN (generalized anxiety disorder): (6) H/O alcohol abuse: (7) Low back pain: (8) Numbness and tingling: (9) Panic disorder: (10) Medical marijuana use: Plan unfortunately patient had no relief from L 3-4 LOS patient on numerous medications through psychiatry, PCP, neurology, and our office, as well as medical marijuana. Patient and I discussed polypharmacy and risks. At this time we should not add in any additional medications. stop baclofen start tizanidine 4-8mg BID PRN muscle spasms continue f/u with psychiatry and neurology f/u 2 months. Pt to consider fibromyalgia treatment program at [facility] as discussed today, for additional input and guidance on patients chronic pain.
== END 2023-10-18 13:39 | disposition home or self-care (01) ==
LOC: PM 13:39
PROVIDERS: PCP Internal Medicine; Visit Provider Nurse Practitioner
DX: M79.10 Myalgia, unspecified site (principal); M47.816 Spondylosis without myelopathy or radiculopathy, lumbar region; M54.16 Radiculopathy, lumbar region; F41.1 Generalized anxiety disorder; F10.21 Alcohol dependence, in remission; M54.50 Low back pain, unspecified; R20.0 Anesthesia of skin; R20.2 Paresthesia of skin; F41.0 Panic disorder [episodic paroxysmal anxiety]; Z79.899 Other long term (current) drug therapy
CPT/HCPCS: G0463

== ENCOUNTER 2023-10-23 23:02 | Emergency (ER) | payer OTHER, SELFPAY ==
[2023-10-23 23:07] VITALS: BP 148/72; PULSE 77; RESP 16; TEMP 36.8; O2SAT 98; BMI 32.8
[2023-10-23 23:13] VITALS: PULSE 80; RESP 15; O2SAT 97
--- NOTE | 2023-10-23 23:15 | ECG_ITS ---
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
[2023-10-23 23:20] VITALS: PULSE 78; RESP 25
[2023-10-23 23:30] VITALS: PULSE 73; RESP 19
[2023-10-23 23:40] VITALS: PULSE 76; RESP 17
[2023-10-23 23:50] VITALS: PULSE 75; RESP 20
[2023-10-24] VITALS (13 sets, daily range): BP systolic 156; BP diastolic 70; PULSE 71–85; RESP 14–26; O2SAT 99
--- NOTE | 2023-10-24 00:19 | CT_ITS ---
[address] [address] Patient Name: BRAD CUADRA MRN: [id number] date: 1975 Sex: M Assigned Patient Location: ER Current Patient Location: ER Accession/Order Number: [id number] Exam Date: 10/24/2023 00:56 Report Date: 10/24/2023 01:48 At the request of: SARATH MARKER Procedure: CT angio chest EXAMINATION: CT angio chest HISTORY: hemoptysis , shortness breath, chest pain, cough, confusion COMPARISON: No relevant comparison available. TECHNIQUE: Multi-planar CT images were created with IV contrast. Axial, Coronal, and Sagittal images. Dose reduction techniques were achieved by using automated exposure control and/or adjustment of mA and/or kV according to patient size and/or use of iterative reconstruction technique. 3-D reconstruction was performed on a separate workstation. FINDINGS: VASCULATURE: No pulmonary embolism or abnormal opacity. LUNGS: Patchy and groundglass opacities throughout lower lobes bilaterally and small amount within upper lobe apices. PLEURA: No mass, effusion, or pneumothorax. WAN: No mass or adenopathy. MEDIASTINUM: No mass or adenopathy. CARDIAC: No enlargement, pericardial effusion, or pericardial thickening. AORTA: No aneurysm or dissection. CHEST WALL: No mass or axillary adenopathy. BONES: No bone lesion or fracture. LIMITED ABDOMEN: Enlarged spleen, 18.2 cm. Limited images of the upper abdomen. OTHER: Negative. CT/CT angio chest IMPRESSION: 1. No pulmonary embolism. 2. Mild-moderate atelectasis throughout the lungs versus multifocal mild infiltrates (infectious etiology versus pulmonary edema). 3. No pleural effusion or pneumothorax. 4. Splenomegaly of uncertain etiology. Electronically authenticated by: VIPIN SINGLETON Date: 10/24/2023 01:48
[2023-10-24 00:31] LABS: Basophils Absolute Auto 0.1 10^3/uL (0.0-0.1); Basophils Percent Auto 0.7 % (0.2-2.0); Eosinophils Absolute Auto 0.3 10^3/uL (0.0-0.7); Eosinophils Percent Auto 3.2 % (0.9-7.0); Hemoglobin 15.4 g/dL (14.0-18.0); Immature Granulocytes Abs Auto 0.01 10^3/uL (0.00-0.03); Immature Granulocytes Pct Auto 0.1 % (0.0-0.5); Lymphocytes Absolute Auto 1.9 10^3/uL (1.2-3.8); Lymphocytes Percent Auto 21.3 % (20.5-60.0); Mean Corpuscular HGB Conc 33.5 g/dL (29.9-35.2); Mean Corpuscular Hemoglobin 27.5 pg (25.9-34.0); Mean Corpuscular Volume 82.3 fL (80.0-94.0); Mean Platelet Volume 10.1 fL (9.5-13.5); Monocytes Absolute Auto 0.7 10^3/uL (0.3-0.8); Monocytes Percent Auto 7.6 % (1.7-12.0); Neutrophils Absolute Auto 5.9 10^3/uL (1.4-6.5); Neutrophils Percent Auto 67.1 % (43.0-75.0); Platelet Count 211 10^3/uL (150-450); Red Blood Count 5.59 10^6/uL (4.70-6.10); Red Cell Distribution Width 13.7 % (11.0-15.0); White Blood Count 8.8 10^3/uL (4.0-11.0)
[2023-10-24 00:48] LABS: Alanine Aminotransferase 29 U/L (16-63); Albumin Level 3.8 g/dL (3.4-5.0); Alkaline Phosphatase 71 U/L (46-116); Anion Gap 15.9; Aspartate Amino Transferase 15 U/L (15-37); BUN Creatinine Ratio 13.5; Bilirubin Total 0.9 mg/dL (0.2-1.0); Calcium 9.1 mg/dL (8.5-10.1); Carbon Dioxide 23.5 mmol/L (21.0-32.0); Chloride 103 mmol/L (98-107); Estimated GFR (African America >60 (>=60); Estimated GFR (Non-African Ame >60 (>=60); Globulin 3.9 g/dL; Glucose 102 mg/dL (74-106); Potassium 3.4 mmol/L (3.5-5.1); Sodium 139 mmol/L (136-145); Total Protein 7.7 g/dL (6.4-8.2); Troponin I High Sensitivity 5.7 pg/mL (4.0-76.1)
[2023-10-24] MEDS: 0.9 % SODIUM CHLORIDE 1,000 ML 1000 ML IV (00:48)
[2023-10-24] MEDS: IPRATROPIUM/ALBUTEROL SULFATE 3 ML AMPUL.NEB IH (00:51)
--- NOTE | 2023-10-24 01:39 | ED.SOB1 ---
HPI - SOB/Dyspnea General Chief Complaint: Shortness of Breath/Dyspnea Stated Complaint: SOB Time Seen by Provider: 10/23/23 23:19 Source: patient Mode of arrival: walk-in Limitations: no limitations History of Present Illness HPI Narrative: This 48-year-old male with a former history of tobacco use who is in pain management and was recently put on primidone by his neurologist for tremors presents for evaluation of cough with pain in his chest with coughing, shortness of breath and hemoptysis. The patient states that he coughed up a lot of blood. He did not take a picture of it. He denies any fever. He denies any dizziness or syncope. The patient's girlfriend thinks that he is having symptoms of anxiety. She states that every time he is placed on a new medication he has a reaction like this. The patient states he has had pneumonia multiple times. The patient has a history of fibromyalgia, chronic back pain and myalgias.He uses albuterol, Advair and a nebulizer machine. Related Data Home Medications Medication Instructions Recorded Confirmed acetaminophen 650 mg 1,300 mg PO Q12H PRN pain 05/01/23 09/25/23 tablet,extended release (8 Hour Pain Reliever) baclofen 10 mg tablet 10 mg PO BID PRN muscle spasm 05/01/23 09/25/23 cholecalciferol (vitamin D3) 1,250 mcg PO .QD 05/01/23 mcg/3 mL (50,000 unit/3 mL) oral drops gabapentin 400 mg capsule 400 mg PO TID 05/01/23 09/25/23 glucosamine-chondroitin 250 mg-200 1 tab PO .AM 05/01/23 09/25/23 mg tablet (Osteo Bi-Flex) multivitamin 1 tab PO DAILY 05/01/23 09/25/23 omega-3 fatty acids 500 mg PO DAILY 05/01/23 09/25/23 quetiapine 50 mg tablet (Seroquel) 75 mg PO .HS 05/01/23 09/25/23 sertraline 100 mg tablet (Zoloft) 100 mg PO DAILY 05/01/23 09/25/23 vitamin B complex (Complex B-100 1 tab PO DAILY 05/01/23 09/25/23 tablet,extended release) fluticasone 250 mcg-salmeterol 50 inhalation 05/08/23 mcg/dose blistr powdr for inhalation (Advair Diskus) albuterol sulfate 90 mcg/actuation 2 puff inhalation PRN 09/05/23 09/25/23 aerosol inhaler xzgfaxhivs-oejdjyajaqewv-edodzmwq tab PRN 09/05/23 50 mg-325 mg-40 mg tablet hydroxyzine pamoate 25 mg capsule 25 mg PO Q8H PRN anxiety 09/05/23 09/25/23 (Vistaril) lorazepam 1 mg tablet mg PRN 09/05/23 quetiapine 100 mg tablet 100 mg .HS 09/05/23 trazodone 50 mg tablet mg .HS PRN insomnia 09/05/23 Allergies Allergy/AdvReac Type Severity Reaction Status Date / Time Penicillins Allergy Mild Verified 10/23/23 23:12 Sulfa (Sulfonamide Allergy Mild Verified 10/23/23 23:12 Antibiotics) diclofenac Allergy Verified 10/23/23 23:12 NSAIDS (Non-Steroidal Allergy Verified 10/23/23 23:12 Anti-Inflamma pregabalin [From Lyrica] Allergy Verified 10/23/23 23:12 Review of Systems ROS Status of ROS 10 or more systems reviewed and unremarkable except as noted in history and below PFSH PFS Medical History Angina at rest ?I20.8 - Other forms of angina pectoris (ICD-10) Anxiety ?F41.9 - Anxiety disorder, unspecified (ICD-10) Bipolar depression ?F31.9 - Bipolar disorder, unspecified (ICD-10) Cancer ?C80.1 - Malignant (primary) neoplasm, unspecified (ICD-10) Cervical spondylosis ?M47.812 - Spondylosis without myelopathy or radiculopathy, cervical region (ICD-10) Chest pain ?R07.9 - Chest pain, unspecified (ICD-10) COPD (chronic obstructive pulmonary disease) ?J44.9 - Chronic obstructive pulmonary disease, unspecified (ICD-10) Fibromyalgia ?M79.7 - Fibromyalgia (ICD-10) Former smoker ?Z87.891 - Personal history of nicotine dependence (ICD-10) BENJAMÍN (generalized anxiety disorder) ?F41.1 - Generalized anxiety disorder (ICD-10) H/O alcohol abuse ?F10.11 - Alcohol abuse, in remission (ICD-10) Low back pain ?M54.50 - Low back pain, unspecified (ICD-10) Muscle spasm ?M62.838 - Other muscle spasm (ICD-10) Neck pain ?M54.2 - Cervicalgia (ICD-10) Numbness and tingling ?R20.0 - Anesthesia of skin (ICD-10) ?R20.2 - Paresthesia of skin (ICD-10) Panic disorder ?F41.0 - Panic disorder [episodic paroxysmal anxiety] (ICD-10) 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 - Unspecified malignant neoplasm of skin, unspecified (ICD-10) Rheumatoid arthritis ?M06.9 - Rheumatoid arthritis, unspecified (ICD-10) TMJ (dislocation of temporomandibular joint) ?S03.00XA - Dislocation of jaw, unspecified side, initial encounter (ICD-10) Surgical History H/O cervical spine surgery ?Z98.890 - Other specified postprocedural states (ICD-10) History of arthroscopy of right shoulder ?Z98.890 - Other specified postprocedural states (ICD-10) History of surgical removal of skin lesion ?Z98.890 - Other specified postprocedural states (ICD-10) ?Z87.2 - Personal history of diseases of the skin and subcutaneous tissue (ICD-10) Family History Father Family history of COPD (chronic obstructive pulmonary disease) Family history of diabetes mellitus Family history of hypertension Mother Family history of COPD (chronic obstructive pulmonary disease) Brother Family history of cancer Uncle Family history of stroke Social History Within the past year, how often did you have a drink containing alcohol: never Within the past year, how often did you have six or more drinks on one occasion: never Score interpretation: A score less than 4 is consistent with normal alcohol consumption. Smoking status: Former smoker Second hand tobacco smoke exposure: Yes Non-prescribed substance use: cannabis (any form) Previous occupational history: unemployed Known occupational exposures/hazards: No Highest level of school completed/degree received: some college, no degree Do you want help with school or training: No Are you now , , , , never or living with a partner: living with partner In a typical week, how many times do you talk on the telephone with family, friends, or neighbors: 3 or more times per week How often do you get together with friends or relatives: 3 or more times per week How often do you attend oriental orthodox or moravian services: never Do you belong to any clubs or organizations such as oriental orthodox groups unions, fraternal or athletic groups, or school groups: no Total score: 2 Score interpretation: A score of greater than or equal to 2 indicates the lowest level of social isolation. Little interest or pleasure in doing things: not at all Feeling down, depressed, or hopeless: several days Feel stressed/tense/nervous/anxious/difficulty sleeping: very much Life stressors: other Life stressor details: health Due to disability, difficulty making decisions: No Do you think of yourself as: straight/heterosexual Gender Identity: male Exam Narrative Exam Narrative: Nurses note and vital signs reviewed and patient is not hypoxic. General: The patient appears well and in no apparent distress. Patient is resting comfortably on cart. He is speaking in complete sentences without conversational dyspnea Skin: Warm, dry, no pallor noted. There is no rash noted. Head: Normocephalic, atraumatic Eye: Normal conjunctiva, no drainage, EOMI. PERRL Ears, Nose, Mouth, and Throat: oral mucosa is moist. Nares patent. Mouth without vesicles.a Cardiovascular: Regular Rate and Rhythm S1 S2, no murmurs, rubs or gallops Respiratory: Patient is in no distress, no accessory muscle use, lungs are clear to auscultation, no wheezing, rales or rhonchi Back: non-tender, no CVA tenderness bilaterally to percussion. GI: Normal bowel sounds, no tenderness to palpation, no masses appreciated. No rebound, guarding, or rigidity noted. Musculoskeletal: swelling or tenderness, right foot is in a boot Neurological: A&O x4, normal speech Psychiatric: Cooperative Constitutional Vital Signs, click to edit/add: Last Vital Signs Temp 98.2 F 10/23/23 23:07 Pulse 79 10/24/23 02:00 Resp 14 10/24/23 02:00 BP 156/70 H 10/24/23 00:00 Pulse Ox 99 12/06/23 00:51 O2 Del Method Room Air 10/24/23 00:51 Course Vital Signs Vital signs: Vital Signs Temperature 98.2 F 10/23/23 23:07 Pulse Rate 77 10/23/23 23:07 Respiratory Rate 16 10/23/23 23:07 Blood Pressure 148/72 H 10/23/23 23:07 Pulse Oximetry 98 10/23/23 23:07 Oxygen Delivery Method Room Air 10/23/23 23:07 Temperature 98.2 F 10/23/23 23:07 Pulse Rate 79 10/24/23 02:00 Respiratory Rate 14 10/24/23 02:00 Blood Pressure 156/70 H 10/24/23 00:00 Pulse Oximetry 99 10/24/23 00:51 Oxygen Delivery Method Room Air 10/24/23 00:51 MDM - SOB/Dyspnea MDM Narrative Medical decision making narrative: This 48-year-old male with a higher history of tobacco use who states he has had pneumonia over 12 times since being a child presents for evaluation of chest pain with deep breathing and hemoptysis. He was recently started on primidone for tremors. The patient's girlfriend states that she thinks he is having anxiety because every time he has put on a new medication he has symptoms such as this. The patient's lungs are clear. He has no oxygen requirements. His vital signs are stable. His EKG was a sinus rhythm at 80 bpm with no acute changes. An IV was placed and he was medicated with IV fluids and [place] for his chest pain. He has a normal white count and hemoglobin. He has a normal lactic acid. Electrolytes are normal. Potassium was minimally low at 3.4. Troponin is normal. BNP is normal. His lungs are clear but he stated that he was short of breath and was given a DuoNeb treatment. After the DuoNeb treatment and I reevaluated his lungs and there was no significant change. CT scan of the chest was ordered due to the history of hemoptysis.CT scan is negative for pulmonary embolism and shows atelectasis vs infiltrates. In light of his history of asthma and hemoptysis which he has not experienced while in the emergency department he will be given a dose oral doxycycline in emergency department and discharged home with doxycycline to use as needed. The patient has follow-up appointments with his neurologist in the near future and is scheduled to have EMG studies and a CT scan of the brain for further evaluation of his tremors. He thinks that his symptoms are related to the primadone that he recently started taking, I told him that I doubt that primadone would cause him to have hemoptysis but if that is his opinion, he should refrain from taking it Differential Diagnosis Differential diagnosis: Likely acute exacerbation of chronic obstructive airways disease, congestive heart failure, community acquired pneumonia, asthma with exacerbation, pulmonary embolism and other (Anxiety, tuberculosis) Medical Records Medical records narrative: [place] [address] CT Scan Report Signed Patient: BRAD CUADRA MR#: [id number] : 1975 Acct:[id number] Age/Sex: 48 / M ADM Date: 10/23/23 Loc: ER Attending Dr: Ordering Physician: Tia John Date of Service: 10/24/23 Procedure(s): CT angio chest Accession Number(s): [id number] cc: CHARLIE REA ~ [facility] [place] [address] Patient Name: BRAD CUADRA MRN: [id number] date: 1975 Sex: M Assigned Patient Location: ER Current Patient Location: ER Accession/Order Number: [id number] Exam Date: 10/24/2023 00:56 Report Date: 10/24/2023 01:48 At the request of: TIA JOHN Procedure: CT angio chest EXAMINATION: CT angio chest HISTORY: hemoptysis , shortness breath, chest pain, cough, confusion COMPARISON: No relevant comparison available. TECHNIQUE: Multi-planar CT images were created with IV contrast. Axial, Coronal, and Sagittal images. Dose reduction techniques were achieved by using automated exposure control and/or adjustment of mA and/or kV according to patient size and/or use of iterative reconstruction technique. 3-D reconstruction was performed on a separate workstation. FINDINGS: VASCULATURE: No pulmonary embolism or abnormal opacity. LUNGS: Patchy and groundglass opacities throughout lower lobes bilaterally and small amount within upper lobe apices. PLEURA: No mass, effusion, or pneumothorax. WAN: No mass or adenopathy. MEDIASTINUM: No mass or adenopathy. CARDIAC: No enlargement, pericardial effusion, or pericardial thickening. AORTA: No aneurysm or dissection. CHEST WALL: No mass or axillary adenopathy. BONES: No bone lesion or fracture. LIMITED ABDOMEN: Enlarged spleen, 18.2 cm. Limited images of the upper abdomen. OTHER: Negative. CT/CT angio chest IMPRESSION: 1. No pulmonary embolism. 2. Mild-moderate atelectasis throughout the lungs versus multifocal mild infiltrates (infectious etiology versus pulmonary edema). 3. No pleural effusion or pneumothorax. 4. Splenomegaly of uncertain etiology. Electronically authenticated by: VIPIN SINGLETON Date: 10/24/2023 01:48 Lab Data Attestation: I reviewed the patient's lab results. (Labs are normal) Labs: Lab Results 10/24/23 Range/Units 00:00 WBC 8.8 (4.0-11.0) 10^3/uL RBC 5.59 (4.70-6.10) 10^6/uL Hgb 15.4 (14.0-18.0) g/dL Hct 46.0 (42.0-54.0) % MCV 82.3 (80.0-94.0) fL MCH 27.5 (25.9-34.0) pg MCHC 33.5 (29.9-35.2) g/dL RDW 13.7 (11.0-15.0) % Plt Count 211 (150-450) 10^3/uL MPV 10.1 (9.5-13.5) fL Neut % (Auto) 67.1 (43.0-75.0) % Lymph % (Auto) 21.3 (20.5-60.0) % [place] % (Auto) 7.6 (1.7-12.0) % Eos % (Auto) 3.2 (0.9-7.0) % Baso % (Auto) 0.7 (0.2-2.0) % Neut # (Auto) 5.9 (1.4-6.5) 10^3/uL Lymph # (Auto) 1.9 (1.2-3.8) 10^3/uL [place] # (Auto) 0.7 (0.3-0.8) 10^3/uL Eos # (Auto) 0.3 (0.0-0.7) 10^3/uL Baso # (Auto) 0.1 (0.0-0.1) 10^3/uL Abs Immat Gran (auto) 0.01 (0.00-0.03) 10^3/uL Imm/Tot Granulo (auto) 0.1 (0.0-0.5) % Sodium 139 (136-145) mmol/L Potassium 3.4 L (3.5-5.1) mmol/L Chloride 103 (98-107) mmol/L Carbon Dioxide 23.5 (21.0-32.0) mmol/L Anion Gap 15.9 BUN 14.0 (7.0-18.0) mg/dL Creatinine 1.04 (0.70-1.30) mg/dL Est GFR ( Amer) >60 (>=60) Est GFR (Non-Af Amer) >60 (>=60) BUN/Creatinine Ratio 13.5 Glucose 102 (74-106) mg/dL Lactate 1.0 (0.4-2.0) mmol/L Calcium 9.1 (8.5-10.1) mg/dL Total Bilirubin 0.9 (0.2-1.0) mg/dL AST 15 (15-37) U/L ALT 29 (16-63) U/L Alkaline Phosphatase 71 (46-116) U/L Troponin I High Sens 5.7 (4.0-76.1) pg/mL NT-Pro-B Natriuret Pep 88.0 (<=450.0) pg/mL Total Protein 7.7 (6.4-8.2) g/dL Albumin 3.8 (3.4-5.0) g/dL Globulin 3.9 g/dL Albumin/Globulin Ratio 1.0 ECG Data Attestation: I personally reviewed and interpreted this ECG as follows: (Sinus rhythm at 80 beats for minute, normal axis, normal intervals, no acute ST segment elevation or T-wave inversion) Discharge Plan Discharge Chief Complaint: Shortness of Breath/Dyspnea Clinical Impression: Hemoptysis Patient Disposition: Home, Self-Care Time of Disposition Decision: 02:12 Condition: Good Prescriptions / Home Meds: No Action albuterol sulfate 90 mcg/actuation HFA aerosol inhaler 2 puff INHALATION PRN yiurvbpzlz-fpgbbghdjxoql-zgfo 50-325-40 mg tablet PRN lorazepam 1 mg tablet PRN quetiapine 100 mg tablet 100 mg .HS trazodone 50 mg tablet .HS PRN (Reason: insomnia) hydroxyzine pamoate [Vistaril] 25 mg capsule 25 mg PO Q8H PRN (Reason: anxiety) baclofen 10 mg tablet 10 mg PO BID PRN (Reason: muscle spasm) Rx Instructions: 1-2 TABS BID gabapentin 400 mg capsule 400 mg PO TID Complex B-100 Tablet Extended Release 1 tab PO DAILY cholecalciferol (vitamin D3) 1,250 mcg/3 mL drops PO .QD multivitamin Tablet 1 tab PO DAILY omega-3 fatty acids Capsule 500 mg PO DAILY glucosamine-chondroitin [Osteo Bi-Flex] 250-200 mg tablet 1 tab PO .AM Rx Instructions: give after food/meal quetiapine [Seroquel] 50 mg tablet 75 mg PO .HS sertraline [Zoloft] 100 mg tablet 100 mg PO DAILY acetaminophen [8 Hour Pain Reliever] 650 mg tablet extended release 1,300 mg PO Q12H PRN (Reason: pain) fluticasone propion-salmeterol [Advair Diskus] 250-50 mcg/dose blister with device INHALATION Instructions: Coughing Up Blood (Hemoptysis) (ED) Stand Alone Forms: Portal Instructions Referrals: CHARLIE REA [Primary Care Provider] - 1 week
[2023-10-24] MEDS: HYDROCODONE/ACET 5-325 MG TABLET 1 TAB PO (01:50)
[2023-10-24] MEDS: ONDANSETRON PF 4 MG/2 ML VIAL IV (01:50)
[2023-10-24] MEDS: DOXYCYCLINE MONOHYDRATE 100 MG CAPSULE PO (02:25)
== END 2023-10-24 02:29 | disposition home or self-care (01) ==
PROVIDERS: Emergency Provider Emergency Medicine; PCP Internal Medicine
DX: R04.2 Hemoptysis (principal); Z87.891 Personal history of nicotine dependence; R25.1 Tremor, unspecified; Z87.01 Personal history of pneumonia (recurrent); M79.7 Fibromyalgia; Z79.899 Other long term (current) drug therapy; F31.9 Bipolar disorder, unspecified; M47.812 Spondylosis without myelopathy or radiculopathy, cervical region; J44.9 Chronic obstructive pulmonary disease, unspecified; F41.1 Generalized anxiety disorder; F10.11 Alcohol abuse, in remission; F41.0 Panic disorder [episodic paroxysmal anxiety]; M06.9 Rheumatoid arthritis, unspecified; R07.9 Chest pain, unspecified
CPT/HCPCS: 36415; 71275; 80053; 83605; 83880; 84484; 85025; 93005; 94640; 96374; 99285; Q9967

== ENCOUNTER 2023-10-30 13:03 | Outpatient (OUT) | payer OTHER, SELFPAY | END 2023-10-30 13:04 | disposition home or self-care (01) | LOC: LAB 11-05 13:03 | PROVIDERS: PCP Internal Medicine; Visit Provider Podiatrist Foot & Ankle Surgery | DX: D48.9 Neoplasm of uncertain behavior, unspecified (principal) | CPT/HCPCS: 88305 ==

== ENCOUNTER 2023-10-30 13:36 | Outpatient (OUT) | payer OTHER, SELFPAY | END 2023-10-30 13:37 | disposition home or self-care (01) | LOC: WC 13:36 | PROVIDERS: PCP Internal Medicine; Visit Provider Podiatrist Foot & Ankle Surgery | DX: L89.892 Pressure ulcer of other site, stage 2 (principal) | CPT/HCPCS: 11104 ==

== ENCOUNTER 2023-10-30 20:00 | Outpatient (OUT) | payer OTHER, SELFPAY | END 2023-10-30 20:01 | disposition home or self-care (01) | LOC: SLEEP 20:00 | PROVIDERS: PCP Internal Medicine | DX: G47.33 Obstructive sleep apnea (adult) (pediatric) (principal); L89.892 Pressure ulcer of other site, stage 2 | CPT/HCPCS: 95811 ==

== ENCOUNTER 2023-11-13 13:45 | Outpatient (OUT) | payer OTHER, SELFPAY | END 2023-11-13 13:46 | disposition home or self-care (01) | LOC: WC 13:45 | PROVIDERS: PCP Internal Medicine; Visit Provider Podiatrist Foot & Ankle Surgery | DX: L89.892 Pressure ulcer of other site, stage 2 (principal) | CPT/HCPCS: 11042 ==

== ENCOUNTER 2023-11-26 14:05 | Outpatient (OUT) | payer OTHER, SELFPAY | END 2023-11-26 14:06 | disposition home or self-care (01) | LOC: WC 14:05 | PROVIDERS: PCP Internal Medicine; Visit Provider Physician Assistant | DX: L89.892 Pressure ulcer of other site, stage 2 (principal) | CPT/HCPCS: G0463 ==

== ENCOUNTER 2023-12-11 13:59 | Outpatient (OUT) | payer OTHER, SELFPAY ==
--- NOTE | 2023-12-11 | CONS_ITS ---
CONSULTATION DATE: 12/11/2023 TO: Dr. Edge CHIEF COMPLAINT: Includes left low back pain. HISTORY: He reports the pain as being 5-7/10 pain. He reports he has pain all over; however, he reports most of his pain symptoms are occurring in his left low back or mid lumbar area, described as sharp constant pain, rated at least 5- 7/10 in severity, increased with activities such as standing, walking and performing transitioning maneuvers. He feels most comfortable in the semi- recumbent position. Denies any change in bowel and bladder habits or new sensorimotor changes in the lower extremities. MEDICATION: Current medication includes baclofen 10 mg b.i.d., gabapentin 400 mg t.i.d. He is also using medical marijuana for his pain symptoms, which he reports does help him to a moderate degree. His BLANCA on today?s visit was 74%. EXAMINATION: Notable for patient having no clinical radiculopathy or myelopathy involving his lower extremities. Patient did have severe pain with lumbar facet joint loading maneuvers on the left side occurring at approximately the L3-4 level, could be the left L2-3 level. This is associated with significant myofascial spasm of the left lumbar erector spinae muscle. IMPRESSION: Our impression is patient with chronic pain with recent flare secondary to lumbosacral spondylosis with facet loaded pain clinically. It has been refractory to conservative therapy. He is unable to tolerate nonsteroidal agents and he did not respond well to a supervised home exercise program. This, combined with modified activity level, his pain has been progressive to a point it alters his quality of life, level of functioning and sleep pattern. RECOMMENDATIONS: I have recommended we proceed with a diagnostic left sided L3- 4 medial branch block plus one level. We will make the determination of a second level to be injected to be evaluated at the time of the procedure, under fluoroscopic examination. So, again, to reiterate, we will proceed with at least a diagnostic left sided two level injection, possibly at L2-3 medial branch block and L3-4 medial branch block, pending examination under fluoroscopy. I have also asked the patient to transition to an aquatic therapy program. We have made a referral to the [facility] and, lastly, we will obtain a lumbosacral spine film on today?s visit. As part of providing excellent, safe, comprehensive care, the following was completed at our patient's visit: 1. A medication reconciliation and review to ensure accurate knowledge of current/active medications, including asking our patients to inform us about any qvny-qdm-voyjgyi medications or herbal remedies/nutritional supplements/alternative remedies. 2. A review to specifically ensure our patients have had annual screening for: elevated body mass index (BMI, see intake chart for exact total), tobacco use, screening for depression, and screening for unhealthy alcohol use. When screening is concerning, patients are provided with education and the specific recommendation to discuss the concerning health issue and treatment options with their primary care provider. JOYCE
--- OUTSIDE RECORDS SUMMARY | 2023-12-11 14:04 | XMS_ITS | CCD ---
Author Name Unknown Address [address] [place] [address] Organization [facility] Care Team Providers Care Legal Arbitrator Name Role Phone Cesario Alejandre Attending Provider Gala Joseph Primary Care Provider Cesario Alejandre Unavailable MD Gala Joseph Primary Care Provider MD Red Cameron Admit Provider MD Red Cameron Attending Provider KAREN Wiley Other Provider Unavailable KAREN Connor Other Provider Unavailable KAREN Michelle Other Provider Unavailable KAREN Floyd Other Provider Unavailable KAREN Peguero Other Provider Unavailable KAREN Gaitan Other Provider Unavailable MD Maik Hopkins Other Provider MD Donnie Ramos Other Provider Dials, GRAIN DRIER Ana M Other Provider [phone] DO Katie Quintanilla Other Provider [phone] MD London Smith Other Provider DO Ed Powell Other Provider MD Benito Farley Other Provider MD Elvi Andres Other Provider [phone] VIOLA Resendiz-BC Pilar Other Provider [phone] MD David Penn Other Provider MD Constantino Jacobs Other Provider MD Lucia Yañez Other Provider MD Kyree Lawrence Other Provider DO Flex Pruitt Other Provider MD Marty Hendricks Other Provider MD Mauro Fernandez Other Provider MD Eliezer Pritchard Other Provider STONE [employer] Sona Hathaway Other Provider MD Conor Jones Other Provider MD Christophe Martinez Other Provider MD Katie Sauceda Other Provider MD Alexander Clancy Other Provider DO Stephanie Medina Other Provider Al MD Rashmi Pedersen Other Provider DO Husam Marcial Other Provider DO Tank Sarah Other Provider SIXTO Herman Other Provider DO Pedrito Ignacio Other Provider MD Cheo Willoughby Other Provider KAREN Miller Other Provider Unavailable Feliciano Hodge Unavailable MD Feliciano Hodge Attending Provider MD Charlie Rea Primary Care Provider [phone] Gala Joseph Primary Care Unavailable Red Cameron Admitting Unavailable Alysia Wiley Consulting Unavailable Red Cameron Attending Unavailable Cheryl Connor Consulting Unavailable Paola Michelle Consulting Unavailable Laura Floyd Consulting Unavailable Nahed Peguero Consulting Unavailable Ellen Gaitan Consulting Unavailable Maik Hopkins Consulting Unavailable Rachel, Donnie K Consulting Unavailable Dials, Ana M Consulting Unavailable Katie Quintanilla Consulting Unavailable Sarah, London Consulting Unavailable Ed Powell Consulting UnavailBenito Leyva Consulting Unavailable Dmitry, Elvi Consulting Unavailable Pilar Resendiz Consulting Unavailable David Penn Consulting Unavailable Constantino Jacobs Consulting Unavailable Lucia Yañez Consulting Unavailable Kyree Lawrence Consulting Unavailable Flex Pruitt Consulting Unavailable Marty Hendricks Consulting Unavailable Mauro Fernandez Consulting Unavailable Eliezer Pritchard Consulting Unavailable Sona Moore Consulting Unavailable DoameConor biswas Consulting Unavailab le Juan, Christophe Consulting Unavailable Sohail, Katie Consulting Unavailable Julieth, Alexander Consulting Unavailable Stephanie Medina Consulting Unavailable Al Rashmi Pedersen Consulting Unavailab Husam Ocasio Consulting Unavailable MiniaciTank Consulting Unavailable Obika, Kaley Consulting Unavailable Pedrito Ignacio Consulting Unavailable Daromar Obaydah M Consulting Unavailable Jennifer Miller Consulting Unavailable Feliciano Hodge Admitting Unavailable Charlie Rea Primary Care Unavailable Feliciano Hodge Attending Unavailable Colt Painting Unavailable SOLOMON GRAHAM Attending Unavailable CHRIS .SOLOMON Admitting Unavailable DR CHARLIE REA Primary Care Unavailable ÁLVARO, DR GUERRA Primary Care Unavailable CHRIS .SOLOMON Attending Unavailable LAKSHMIPATHY ., NARENDRANATH Admitting Valeria vailable LAKSHMIPATHY ., NARENDJOSE MANUEL Consulting Valeria vailable SIMASHMITREVOR ., JESSICA Attending Valeria DR CHARLIE Mcdonald Primary Care Unavailable LAKSHMIPATHY ., NARENDRANATH Admitting Valeria vailable LAKSHMIPATHY ., NARENDRANATH Consulting Valeria vailable ÁLVARO, DR GUERRA Primary Care Unavailable LAKSHMIPATHY ., ROBERTENDJOSE MANUEL Attending Valeria vailable JENAROMIPATHAngelica ., NIKHILATH Admitting Valeria vailaDR CHARLIE Terrazas Primary Care Unavailable RONNA ., DR KEVIN Nichole Attending Unavailable RONNA ., DR KEVIN Nichole Admitting Unavailable LAYLA BOLTON Consulting Unavailable DR GALA JOSEPH Primary Care Unavailable JAQUELIN VIRGEN Attending Unavailable SUSY ., JAQUELIN Admitting Unavailable SONA SEVERINO Consulting Unavailable SUSY Smallwood, JAQUELIN Consulting Unavailable GALA WASHINGTON Consulting Unavailable NICOLAS, DR PATRICIA Sotelo Attending Unavailable NICOLAS, DR PATRICIA Sotelo Admitting Unavailable NICOLAS, DR PATRICIA Sotelo Consulting Unavailable DEFRANCE, DR CEDEÑO Primary Care Unavailable DEFRANCE, DR CEDEÑO Primary Care Unavailable NICOLAS, DR PATRICIA Sotelo Attending Unavailable NICOLAS, DR PATRICIA Sotelo Admitting Unavailable NICOLAS, DR PATRICIA Sotelo Consulting Unavailable DEFRANCE, DR CEDEÑO Primary Care Unavailable PAY ., DR TROY Admitting Unavailable RITO ., SONA Consulting Unavailable PAY ., DR TROY Attending Unavailable HILL, DR GUERRA Primary Care Unavailable ACOSTA ., DR KEVIN Nichole Attending Unavailable ACOSTA ., DR KEVIN Nichole Admitting Unavailable ACOSTA ., DR KEVIN Nichole Consulting Unavailable HILL, DR GUERRA Primary Care Unavailable ACOSTA ., DR KEVIN Nichole Attending Unavailable ACOSTA ., DR KEVIN Nichole Admitting Unavailable ACOSTA ., DR KEVIN Nichole Consulting Unavailable HILL, DR GUERRA Primary Care Unavailable ACOSTA ., DR KEVIN Nichole Attending Unavailable ACOSTA ., DR KEVIN Nichole Admitting Unavailable ATWOOD ., LAYLA Consulting Unavailable HILL, DR GUERRA Primary Care Unavailable ACOSTA ., DR KEVIN Nichole Admitting Unavailable ACOSTA ., DR KEVIN Nichole Attending Unavailable ATWOOD ., LAYLA Consulting Unavailable ACOSTA ., DR KEVIN Nichole Attending Unavailable ACOSTA ., DR KEVIN Nichole Admitting Unavailable ACOSTA ., DR KEVIN Nichole Consulting Unavailable DEFRANCE, DR CEDEÑO Primary Care Unavailable DEFRANCE, DR CEDEÑO Consulting Unavailable ANNAMARIE LAY Attending Unavailable ANTONIO WALTER Attending Unavailable ANTONIO WALTER Attending Unavailable ANTONIO WALTER Referring Unavailable ÁLVARO, CHARLIE Romero Attending Unavailable ÁLVARO, CHARLIE Romero Referring Unavailable ANTONIO WALTER Referring Unavailable Charlie Rea MD Primary Care Provider LISA BOSTON Attending Unavailable ÁLVARO, CHARLIE Romero Referring Unavailable ÁLVARO, CHARLIE Romero Primary Care Unavailable LISA BOSTON Referring Unavailable ÁLVARO, CHARLIE Romero Primary Care Unavailable Unavailable Unavailable Unavailable Allergies Allergy Classification Reported Allergen(s) Allergy Type Date of Onset Reaction(s) Facility (8 sources) Penicillins; Translations: [Penicillins] Allergy to substance 10-30-20 18 [facility] (8 sources) Sulfonamides (Antibiotic); Translations: [Sulfa (Sulfonamide Antibiotics)] Allergy to substance 01-10-20 21 [facility] (8 sources) Penicillin G; Translations: [PENICILLIN G] Drug Allergy 03-21-20 23 Other (See Comments) [employer] Other (5 sources) Sulf-10 Drug allergy Unknown [facility] Other (6 sources) Diclofenac; Translations: [DICLOFENAC] Drug Allergy 03-21-20 23 Anxiety [facility] (6 sources) pregabalin; Translations: [PREGABALIN] Drug Allergy 03-21-20 panic attacks [facility] Other (1 source) Diclofenac Drug Allergy [facility] (1 source) Penicillin Drug Allergy [facility] (1 source) pregabalin Drug Allergy [facility] (1 source) Sulfonamides (Antibiotic) Drug allergy (disorder) [facility] (3 sources) Diclofenac; Translations: [DICLOFENAC SODIUM] Drug Allergy 09-22-20 [facility] (3 sources) hydrOXYzine; Translations: [HYDROXYZINE] Drug Allergy 03-21-20 Shortness Of Breath [facility] (3 sources) Ibuprofen; Translations: [IBUPROFEN] Drug Allergy 09-22-20 [facility] (3 sources) Latex; Translations: [LATEX] Propensity to adverse reactions to drug 06-22-20 21 Hives [facility] (3 sources) Methocarbamol; Translations: [METHOCARBAMOL] Drug Allergy 09-22-20 [facility] (3 sources) Naproxen; Translations: [NAPROXEN SODIUM] Drug Allergy 09-22-20 [facility] Work Phone: (3 sources) Non-steroidal anti-inflammator y agent; Translations: [NSAIDS (NON-STEROIDAL ANTI-INFLAMMATOR Y DRUG)] Propensity to adverse reactions to drug 03-21-20 Shortness Of Breath [facility] (3 sources) Sulfur; Translations: [SULFUR] Drug Allergy 10-30-20 18 Vomiting [facility] Medications Current Medications Medication Drug Class(es) Dates Sig (Normalized) Sig (Original) 8 hr acetaminophen 650 mg extended release oral tablet (4 sources) Start: 12-11-2022 take 1 tablet by mouth every twelve hours Acetaminophen (Tylenol Arthritis) 650 mg Tablet Extended Release Active 650 MG PO Q12H December 11, 2022 12:00am Start: 02-11-2021 End: 09-08-2022 take 2 tablets by mouth every four to six hours Acetaminophen (Tylenol) 325 mg Tablet Discontinued 650 MG PO EVERY 4-6 HOURS February 10, 2021 11:00pm September 08, 2022 10:00am acetaminophen 325 mg / butalbital 50 mg / caffeine 40 mg oral tablet (2 sources) Barbiturate, Central Nervous System Stimulant, Methylxanthine Start: 08-29-2022 take 1-2 tablets by mouth every six hours as needed for headache jvkziechzl-gjfaavqzfptft-hncd (FIORICET, ESGIC) 50-325-40 mg per tablet Take 1-2 tablets by mouth every 6 (six) hours as needed for headaches. 60 tablet 3 08/29/2022 Active [id number] 200 actuat albuterol 0.09 mg/actuat metered dose inhaler (5 sources) beta2-Adrenergic Agonist Start: 12-11-2022 Albuterol Sulfate Active 1 I NH INHALATION Twice daily December 11, 2022 12:00am Start: 04-18-2022 take 2 puff(s) by in halation every six hours as needed for wheezing albuterol (PROVENTIL HFA;VENTOLIN HFA) 90 mcg/actuation inhaler Indications: Asthma, unspecified asthma severity, unspecified whether complicated, unspecified whether persistent Inhale 2 puffs every 6 (six) hours as needed for wheezing. 18 g 0 04/18/2022 Active Start: 12-02-2021 take 3 mL by inhalat ion every six hours as needed for wheezing albuterol (ACCUNEB) 0.63 mg/3 mL nebulizer solution Indications: Asthma, unspecified asthma severity, unspecified whether complicated, unspecified whether persistent Inhale 3 mL (0.63 mg total) by nebulization every 6 (six) hours as needed for wheezing. 75 mL 1 12/02/2021 Active baclofen 10 mg oral tablet (3 sources) gamma-Aminobutyric Acid-ergic Agonist take 1 tablet by mouth in the morning, then take 1 tablet by mouth at bedtime baclofen (LIORESAL) 10 mg tablet Take 1 tablet (10 mg total) by mouth in the morning and 1 tablet (10 mg total) before bedtime. 0 Active chondroitin sulfates 200 mg / glucosamine hydrochloride 250 mg oral tablet (1 source) Start: take 1 tablet by mouth once daily at mealtime Glucosamine-Chondr oitin (Osteo Bi-Flex) 250-200 mg Tablet Active 1 TAB PO Daily December 11, 2022 12:00am give after food/meal dicyclomine hydrochloride 20 mg oral tablet (2 sources) Anticholinergic Start: take 1 tablet by mouth in the morning, then take 1 tablet by mouth at bedtime dicyclomine (BENTYL) 20 mg tablet Take 1 tablet (20 mg total) by mouth in the morning and 1 tablet (20 mg total) before bedtime. 20 tablet 0 10/21/2022 Active [id number] 0.3 ml EPINEPHrine 1 mg/ml auto-injector (2 sources) alpha-Adrenergic Agonist, beta-Adrenergic Agonist, Catecholamine Start: EPINEPHrine (EPIPEN) 0.3 mg/0.3 mL auto-injector Inject 0.3 mL (0.3 mg total) into the appropriate muscle as needed (as directed) for up to 1 dose. 1 each 0 09/06/2022 Active escitalopram 10 mg oral tablet (3 sources) Serotonin Reuptake Inhibitor Start: take 1 tablet by mouth in the morning escitalopram (LEXAPRO) 10 mg tablet Take 1 tablet (10 mg total) by mouth in the morning. 30 tablet 5 09/25/2022 Active fluticasone propionate 0.05 mg/actuat metered dose nasal spray (11 sources) Corticosteroid Start: take 1 spray(s) nasal route once daily fluticasone propionate (FLONASE) 50 mcg/actuation nasal spray SPRAY 1 SPRAY INTO EACH NOSTRIL EVERY DAY 16 mL 0 10/03/2021 Active Start: 01-10-2021 End: 12-11-2022 Fluticasone Propionate Disco ntinued 1 SPRAY INTRANASAL Daily January 10, 2021 12:00am December 11, 2022 8:39am Flonase Active take 1 spray(s) nasa l route once daily Fluticasone Propionate 50 MCG/ACT SPRAY 1 SPRAY INTO EACH NOSTRIL EVERY DAY Nasal for 30 Active fluticasone / salmeterol (3 sources) Corticosteroid, beta2-Adrenergic Agonist take 1 puff(s) by inhalation in the morning fluticasone propion-salmeteroL (ADVAIR) 250-50 mcg/dose DISKUS Inhale 1 puff in the morning and 1 puff before bedtime. 0 Active Advair Diskus 25 0-50 MCG/ACT Inhalation for 90 Days Active gabapentin 400 mg oral capsule (19 sources) Anti-epileptic Agent Start: 09-22-2022 take 1 capsule by mouth three times daily gabapentin (NEURONTIN) 400 mg capsule Indications: Lumbar spondylosis , Cervical spondylosis without myelopathy Take 1 capsule (400 mg total) by mouth 3 (three) times a day. 90 capsule 2 09/22/2022 Active Start: 09-10-2022 End: 12-11-2022 take 200 mg by mouth three times daily Gabapentin Discontinued 200 MG PO Three times daily 180 30 September 09, 2022 11:00pm December 11, 2022 8:39am Start: 09-08-2022 End: 09-10-2022 take 600 mg by mouth three times daily Gabapentin Discontinued 600 MG PO Three times daily September 07, 2022 11:00pm September 10, 2022 10:05am Start: 02-11-2021 End: 09-08-2022 take 400 mg by mouth three times daily Gabapentin Discontinued 400 MG PO Three times daily February 10, 2021 11:00pm September 08, 2022 10:12am Start: 01-10-2021 End: 02-11-2021 take 300 mg by mouth three times daily Gabapentin Discontinued 300 MG PO Three times daily January 10, 2021 12:00am February 11, 2021 10:33am take 1 capsule by [facility] every eight hours Gabapentin 100 MG 1 capsule Orally tid Active hydrocortisone acetate 10 mg/ml / pramoxine hydrochloride 10 mg/ml rectal foam (2 sources) Corticosteroid Start: 10-21-2022 hydrocortisone-pramoxine (PROCTOFOAM-HS) rectal foam Insert 1 applicator into the rectum in the morning and 1 applicator before bedtime. 10 g 0 10/21/2022 Active lactobacillus acidophilus [id number] unt / pectin 100 mg oral tablet (2 sources) acidophilus-pect in, citrus 25 million cell -100 mg tablet Take by mouth 3 (three) times a day with meals. 0 Active LORazepam 1 mg oral tablet (8 sources) Benzodiazepine Start: 12-11-2022 take 0.5 mg by mouth three times daily Lorazepam Active 0.5 MG PO Three times daily December 11, 2022 12:00am Start: 10-06-2022 take 1 tablet by jie th once daily at bedtime LORazepam (ATIVAN) 2 mg tablet Indications: Primary insomnia Take 1 tablet (2 mg total) by mouth once daily at bedtime. 30 tablet 0 10/06/2022 Active Start: 09-08-2022 End: 09-10-2022 take 1 mg by mouth twice daily Lorazepam Discontinued 1 MG PO Twice daily September 07, 2022 11:00pm September 10, 2022 10:05am take 1 tablet by jie th every twenty-four hours Ativan 1 MG 1 tablet at bedtime as needed Orally Once a day Active gnbzbcnd-xpwk-AH-calcium &mins (THERAGRAN-M) 9 mg iron-400 mcg tablet (2 sources) htfiimbk-ksrm-UG -calcium &mins (THERAGRAN-M) 9 mg iron-400 mcg tablet Take 1 tablet by mouth in the morning. 0 Active Multivitamin preparation (1 source) Sta rt: 3 take 1 tablet by mouth once daily Multivitamin Active 1 TAB PO Daily December 11, 2022 12:00am omega 8-knb-zwy-fish oil (Fish OiL) 300-1,000 mg capsule (2 sources) omega 3-dha-epa- fish oil (Fish OiL) 300-1,000 mg capsule Take by mouth. 0 Active [place]-3 Fatty Acids (Fish Oil) 500 mg Capsule (1 source) Sta rt: 3 take 1 capsule by mouth once daily [place]-3 Fatty Acids (Fish Oil) 500 mg Capsule Active 500 MG PO Daily December 11, 2022 12:00am omeprazole 40 mg delayed release oral capsule (1 source) Proton Pump Inhibitor Sta rt: 3 Omeprazole 40 MG 1 capsule 30 minutes before morning meal and evening meal Orally bid for 30 days Feb, Active Psyllium (1 source) Metamucil Active QUEtiapine 50 mg oral tablet (4 sources) Atypical Antipsychotic Sta rt: 3 take 50 mg by mouth once daily Quetiapine Active 50 MG PO Daily December 11, 2022 12:00am take 1 tablet by mouth once vi y QUEtiapine (SEROquel) 100 mg tablet Take 1 tablet (100 mg total) by mouth nightly. 0 Active sertraline 50 mg oral tablet (4 sources) Serotonin Reuptake Inhibitor Start: 12-11-2022 take 50 mg by mouth once daily Sertraline Active 50 MG PO Daily December 11, 2022 12:00am take 1 tablet by mouth in the mo rning sertraline (ZOLOFT) 100 mg tablet Take 1 tablet (100 mg total) by mouth in the morning. 0 Active Sertraline HCl 1 00 MG Oral for 30 Days Active vitamin b12 0.05 mg oral tablet (1 source) Vitamin B12 Start: 12-11-2022 take 1 tablet by mouth once daily Cyanocobalamin (Vitamin B-12) (Vitamin B-12) 50 mcg Tablet Active 50 MCG PO Daily December 11, 2022 12:00am Completed/Discontinued Medications Medication Drug Class(es) Dates Sig (Normalized) Sig (Original) cyclobenzaprine hydrochloride 10 mg oral tablet (2 sources) Muscle Relaxant Start: 02-22-2021 End: 12-11-2022 take 10 mg by mouth three times daily Cyclobenzaprine Discontinued 10 MG PO Three times daily 50 February 21, 2021 11:00pm December 11, 2022 8:39am diclofenac sodium 50 mg delayed release oral tablet (2 sources) Nonsteroidal Anti-inflammatory Drug Start: 09-08-2022 End: 09-08-2022 take 50 mg by mouth four times daily Diclofenac Sodium Discontinued 50 MG PO Four times daily September 07, 2022 11:00pm September 08, 2022 10:40am diphenhydrAMINE hydrochloride 25 mg oral tablet (2 sources) Histamine-1 Receptor Antagonist Start: 09-08-2022 End: 12-11-2022 take 1 tablet by mouth four times daily Diphenhydramine Hcl (Banophen) 25 mg tablet Discontinued 25 MG PO Four times daily September 07, 2022 11:00pm December 11, 2022 8:39am oxyCODONE hydrochloride 5 mg oral capsule (2 sources) Opioid Agonist Start: 02-22-2021 End: 09-10-2022 take 5-10 mg by mouth every six hours Oxycodone Discontinued 5 - 10 MG PO Q6H 60 8 February 22, 2021 September 10, 2022 10:05am Prednisone (2 sources) Start: 02-22-2021 End: 09-08-2022 Prednisone Discontinued 1 dose pk PO per package directions February 21, 2021 11:00pm September 08, 2022 10:00am take 4 tabs for 3 days then take 3 tabs for 3 days then take 2 tabs for 3 days then take 1 tab for 3 days Start: 02-22-2021 End: 09-08-2022 Prednisone Discontinued 1 do se pk PO per package directions February 22, 2021 12:00am September 08, 2022 11:00am take 4 tabs for 3 days then take 3 tabs for 3 days then take 2 tabs for 3 days then take 1 tab for 3 days sulfamethoxazole 800 mg / trimethoprim 160 mg oral tablet (2 sources) Dihydrofolate Reductase Inhibitor Antibacterial, Sulfonamide Antimicrobial Start: 02-22-2021 End: 09-08-2022 take 1 tablet by mouth every twelve hours Sulfamethoxazole-Trimethoprim (Bactrim Ds) 800-160 mg Tablet Discontinued 1 TAB PO Q12H February 21, 2021 11:00pm September 08, 2022 10:00am tamsulosin hydrochloride 0.4 mg oral capsule (2 sources) alpha-Adrenergic Chantel Start: 09-08-2022 End: 12-11-2022 take 0.4 mg by mouth once daily Tamsulosin Discontinued 0.4 MG PO Daily September 07, 2022 11:00pm December 11, 2022 8:39am Problems Active Problems Problem Classification Problem Date Documented Da te Episodic/Chronic Anxiety disorders (8 sources) Anxiety; Translations: [Anxiety disorder, unspecified] Onset: 2 09-08-2022 Chronic Cardiac dysrhythmias (1 source) Palpitations; Translations: [Palpitations] Onset: 4 Episodic Esophageal disorders (2 sources) Gastroesophageal reflux disease; Translations: [Gastro-esophageal reflux disease without esophagitis] Chronic Hyperplasia of prostate (2 sources) Prostatism; Translations: [Benign prostatic hyperplasia without lower urinary tract symptoms] Onset: 2 12-19-2022 Chronic Mood disorders (3 sources) Depressive disorder; Translations: [Depression] 09-08-2022 Chronic Nonspecific chest pain (2 sources) Chest pain, unspecified; Translations: [Other chest pain] Onset: 4 Episodic Osteoarthritis (7 sources) Arthropathy of right shoulder; Translations: [Primary osteoarthritis, right shoulder] Onset: 1 Resolved: 1 Chronic Other connective tissue disease (4 sources) Fibromyalgia; Translations: [FIBROMYALGIA] Onset: 3 Episodic Other connective tissue disease (1 source) Other muscle spasm; Translations: [OTHER MUSCLE SPASM] Onset: 3 Episodic Other gastrointestinal disorders (3 sources) Irritable bowel syndrome; Translations: [Mixed irritable bowel syndrome] Chronic Other gastrointestinal disorders (2 sources) Other specified symptoms and signs involving the digestive system and abdomen Episodic Other lower respiratory disease (1 source) Shortness of breath; Translations: [Shortness of breath] Onset: 4 Episodic Other nervous system disorders (5 sources) Carpal tunnel syndrome of right wrist; Translations: [Carpal tunnel syndrome, right upper limb] Chronic Other nervous system disorders (2 sources) Carpal tunnel syndrome, right upper limb; Translations: [Carpal tunnel syndrome, right G56.01] Onset: 1 Resolved: 1 Chronic Other nervous system disorders (1 source) Other chronic pain; Translations: [OTHER CHRONIC PAIN] Onset: 3 Chronic Spondylosis; intervertebral disc disorders; other back problems (20 sources) Cervical spondylosis; Translations: [Other spondylosis with radiculopathy, cervical region] Onset: 1 02-22-2021 Chronic Unclassified (1 source) Hemorrhage of anus and rectum; Translations: [Hemorrhage of anus and rectum] Onset: 3 Unclassified (1 source) New Patient Onset: 4 Past or Other Problems Problem Classification Problem Date Documented Da te Episodic/Chronic Abdominal pain (4 sources) Abdominal pain; Translations: [Unspecified abdominal pain] Onset: 09-08-2022 09-08-2022 Episodic E Codes: Adverse effects of medical drugs (1 source) Adverse effect of other drugs, medicaments and biological substances, initial encounter; Translations: [ADVRS EFF OTH RX MED BIO SUBST INIT] Onset: 09-07-2022 Episodic E Codes: Natural/environment (1 source) Exposure to other specified factors, initial encounter; Translations: [EXPOSURE OTHER SPEC FACTORS INITIAL] Onset: 09-21-2022 Episodic Gastrointestinal hemorrhage (4 sources) Hemorrhage of anus and rectum; Translations: [Melena] Onset: 09-06-2022 Episodic Mood disorders (3 sources) Mood disorders; Translations: [Depression, unspecified] Onset: 09-08-2022 08-29-2022 Other aftercare (1 source) 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; Translations: [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 TENDER CURRENT DRUG THERAPY] Onset: 09-13-2022 Episodic Other connective tissue disease (1 source) Arthrodesis status; Translations: [ARTHRODESIS STATUS] Onset: 09-08-2022 Episodic Other gastrointestinal disorders (1 source) Other fecal abnormalities; Translations: [OTHER FECAL ABNORMALITIES] Onset: 09-07-2022 Episodic Residual codes; unclassified (1 source) Insomnia, unspecified; Translations: [INSOMNIA UNSPECIFIED] Onset: 09-05-2022 Episodic Screening and history of mental health and substance abuse codes (1 source) Personal history of nicotine dependence; Translations: [PERSONAL HISTORY OF NICOTINE DEPEND] Onset: 09-05-2022 Episodic Spondylosis; intervertebral disc disorders; other back problems (20 sources) Cervical disc disorder at C6-C7 level with radiculopathy; Translations: [Cervical disc disorder at C5-C6 level with radiculopathy] Onset: 06-22-2021 Resolved: 08-30-2021 Episodic Sprains and strains (1 source) Strain of muscle, fascia and tendon at neck level, initial encounter; Translations: [STRN MUSC FASC TENDON NECK LEVL INT] Onset: 09-21-2022 Episodic Unclassified (2 sources) Onset: 06-02-2020 06-02-2020 Results Test Name Value Interpretation Reference Range Facility MR BRAIN WO CONTRASTon 10-31 MR BRAIN WO CONTRAST EXAM: MR BRAIN WO CONTRAST History: Intention tremor Technique: Multiplanar multisequence MRI of the brain was performed without contrast. Comparison: Findings: Brain volume is age-appropriate. Ventricular morphology is within normal limits. No edema, hemorrhage, mass, mass effect, midline shift, or abnormal extra-axial fluid collection. Midline structures are within normal limits. The posterior fossa is within normal limits. There is no diffusion restriction. No susceptibility artifact is identified on the gradient echo sequence. The major intracranial vascular flow voids are maintained. Cranial nerves 7/8 complexes appear grossly unremarkable. Mild paranasal sinus mucosal thickening. The mastoid air cells are clear. IMPRESSION: No acute intracranial process. ELECTRONICALLY SIGNED BY: Charlie Marin, Normal Not Available XR CSPINE 2_3 VIEWSon 2021 XR CSPINE 2_3 VIEWS EXAM: XR CSPINE 2_3 VIEWS HISTORY: Pain COMPARISON: X-rays 10/20/2019. TECHNIQUE: 3 views FINDINGS: IMPRESSION: Patient is status post C5-C7 ACDF. The plate, screws and graft exhibit no gross abnormality. Cervical lordosis is maintained. Vertebral body heights and alignments exhibit no fracture or listhesis. The dens and lateral masses of C1 are symmetric. No visualized prevertebral soft tissue edema. Electronically authenticated by: GALA WASHINGTON Date: 2022-09-19 20:25 Normal [facility] Bilirubin Test strip Ql (U)O rdered By: Kaley Herman on 09-08-2022 Bilirubin Ql (U) Negative Negative [facility] CT abdomen pelvis wo conon 1 CT abdomen pelvis wo con [place] [address] CT Scan Report Signed Patient: Magnus García MR#: [id number] 8 : 1975 Acct:[id number] Age/Sex: 47 / M ADM Date: 09/08/22 Loc: Room: [address] [place] [address] Type: ADM IN Attending Dr: Red Cameron MD Copies to: MD Kaley Pierce APRN Ordering Provider: Kaley Herman APRN Date of Service: 09/08/22 CT/CT abdomen pelvis wo con: Abdominal pain CT ABDOMEN AND PELVIS WITHOUT INTRAVENOUS CONTRAST: CLINICAL HISTORY: Nausea, anxiety, diarrhea, abdominal pain. COMPARISON: None TECHNIQUE: Spiral images were obtained through the abdomen and pelvis without intravenous contrast. This CT exam was performed using one or more following dose reduction techniques: Automated exposure control, adjustment of the mA and/or kV according to patient size, or use of iterative reconstruction technique. FINDINGS: Lung Bases: [No acute findings.] Organs:Suboptimal evaluation due to lack of IV contrast. Liver gallbladder pancreas spleen adrenal glands kidneys and aorta all appear unremarkable.[ GI: Stomach is grossly unremarkable. Small bowel appears nondilated. Appendix is normal. No acute colonic abnormality.[ Pelvis:[Urinary bladder is grossly unremarkable. Prostate gland is normal size.] Peritoneum/Retroperito neum:No free air, free fluid or lymphadenopathy.[ Abd wall/Bones:Abdominal wall demonstrates no acute findings. Osseous structures demonstrate degenerative change.[ CT/CT abdomen pelvis wo con IMPRESSION: No acute process. Impression dictated by: Jace Armstrong Jr., D.O.09/08/2022 4:33 PM Dictation Location: [place] [address] Transcribed By: [facility] 09/08/22 1633 Dictated By: Jace Armstrong Jr, DO 09/08/22 1631 Signed By: 09/08/22 1633 [facility] Cholesterol [Mass/volume] in Serum or PlasmaOrdered By: Red Cameron on 09-08-2022 Cholesterol [Mass/Vol] 122 mg/dL 140-200 [facility] Comment on above: Chol less than 200 m g/dl low riskChol 201-239 mg/dl borderline riskChol 240 mg/dl and greater high risk Cholesterol in LDL Calc [Mas s/Vol]Ordered By: Red Cameron on 09-08-2022 Cholesterol in LDL [Mass/Vol] 50 mg/dL 0-100 [facility] Comment on above: LDL ATP III CLASSIFI CATIONLDL less than 100 mg/dL OptimalLDL 100-129 mg/dL Near or above optimalLDL 130-159 mg/dL Borderline highLDL 160-189 mg/dL HighLDL greater than 189 mg/dL Very high Cholesterol in VLDL Calc [Ma ss/Vol]Ordered By: Red Cameron on 09-08-2022 Cholesterol in VLDL [Mass/Vol] 38 mg/dL [facility] Color Auto (U)Ordered By: Leesa Herman on 09-08-2022 Color (U) Yellow Yellow [facility] Ketones Auto test strip (U) [Mass/Vol]Ordered By: Kaley Herman on 09-08-2022 Ketones (U) [Mass/Vol] Trace Negative [facility] - Chemistry and C hemistry - challengeOrdered By: Kaley Herman on 10-21-2022 Lipase [Catalytic activity/Vol] 47.0 U/L - [facility] Lipaseon 09-08-2022 Lipase [Catalytic activity/Vol] 47.0 U/L Normal 22-51 [facility] Comment on above: Result Comment: PERF ORMED BY: [place] [address] PATHOLOGIST TEAM ASSISTANT RENE ALCANTARA M.D. Performed By: #### L IPASE #### [address] Lipid Panelon 09-08-2022 Cholesterol [Mass/Vol] 122 mg/dL Low 140-200 [facility] Comment on above: Result Comment: Chol less than 200 mg/dl low risk Chol 201-239 mg/dl borderline risk Chol 240 mg/dl and greater high risk Performed By: #### T SH3 wRFLX, [id number], LIPID #### [address] Cholesterol in HDL [Mass/Vol] 34 mg/dL Normal 29-71 [facility] Comment on above: Result Comment: HDL CHOL ATP-III CLASSIFICATION Cardiovascular Risk HDL > or equal to 60 mg/dL LOW HDL < 40 mg/dL HIGH Performed By: #### T SH3 wRFLX, [id number], LIPID #### [facility] [address] [place] [address] Cholesterol.total/Chol esterol in HDL [Mass ratio] 3.6 {ratio} Normal <5.0 [facility] Comment on above: Performed By: #### T SH3 wRFLX, [id number], LIPID #### [facility] [address] [place] [address] LDL Cholesterol,Calculated 50 mg/dL Normal 0-100 [facility] Comment on above: Result Comment: LDL ATP III CLASSIFICATION LDL less than 100 mg/dL Optimal LDL 100-129 mg/dL Near or above optimal LDL 130-159 mg/dL Borderline high LDL 160-189 mg/dL High LDL greater than 189 mg/dL Very high Performed By: #### T SH3 wRFLX, [id number], LIPID #### [facility] [address] Triglyceride w/Reflex 191 mg/dL High 35-149 [facility] Comment on above: Result Comment: TRIG ATP III CLASSIFICATION TRIG less than 150 mg/dL Normal TRIG 150-199 mg/dL Borderline high TRIG 200-500 mg/dL High TRIG greater than 500 mg/dL Very high Standard traceable to the Center for Disease Conrtrol and Prevention (CDC) test method. Performed By: #### T SH3 wRFLX, [id number], LIPID #### [facility] [address] VLDL CHOLESTEROL 38 mg/dL Normal [facility] Comment on above: Performed By: #### T SH3 wRFLX, [id number], LIPID #### [facility] [address] Nitrite Test strip Ql (U)Ord ered By: Kaley Herman on 09-08-2022 Nitrite Ql (U) Negative Negative [facility] No Panel InformationOrdered By: Red Cameron on 09-08-2022 25-Hydroxy Vitamin D Total 9.6 ng/mL 30-100 [facility] Comment on above: VITAMIN D STATUS 25( [place])VITAMIN D RANGE (ng/mL) Deficient <20 Insufficient 20 to <30Sufficient 30 to 100Reference: Ez MF,Petey NC, Suzette VIRK, et al. Evaluation,treatment, and prevention of vitamin D deficiency; an Endocrine Society clinical practice guideline. JCEM. 2010; 96(7):1911-30. Protein Auto test strip (U) [Mass/Vol]Ordered By: Kaley Herman on 09-08-2022 Protein (U) [Mass/Vol] Negative Negative [facility] Serum or plasma high density lipoprotein (HDL) cholesterol measurementOrdered By: Red Cameron on 09-08-2022 Cholesterol in HDL [Mass/Vol] 34 mg/dL [facility] Comment on above: HDL CHOL ATP-III CLA SSIFICATION Cardiovascular RiskHDL > or equal to 60 mg/dL LOWHDL < 40 mg/dL HIGH Serum or plasma total choles terol/high density lipoprotein (HDL) cholesterol mass ratOrdered By: Red Cameron on 09-08-2022 Cholesterol.total/Chol esterol in HDL [Mass ratio] 3.6 {ratio} <5.0 [facility] Specific gravity Auto test s trip (U) [Rel density]Ordered By: Kaley Herman on 09-08-2022 Specific gravity (U) [Rel density] 1.005 1.001-1.030 [facility] TSH DL <= 0.005 mIU/L QnOrde red By: Red Cameron on 09-08-2022 TSH Qn 1.04 m[IU]/L 0.45-5.33 [facility] Thyroid Stim Hormone w/Rflxo n 09-08-2022 Thyroid Stim Hormone w/Rflx 1.04 u[iU]/mL Normal 0.45-5.33 [facility] Comment on above: Performed By: #### T SH3 wRFLX, [id number], LIPID #### [facility] [address] Triglyceride [Mass/volume] i n Serum or PlasmaOrdered By: Red Cameron on 09-08-2022 Triglyceride [Mass/Vol] 191 mg/dL 35-149 [facility] Comment on above: TRIG ATP III CLASSIF ICATIONTRIG less than 150 mg/dL NormalTRIG 150-199 mg/dL Borderline highTRIG 200-500 mg/dL High TRIG greater than 500 mg/dL Very highStandard traceable to the Center for Disease Conrtrol and Prevention (CDC) test method. Urinalysison 09-08-2022 Appearance (U) Clear Normal Clear [facility] Comment on above: Order Comment: Name Collection Type:: Clean-Voided Midstream Performed By: #### U A #### [facility] [address] [place] [address] [place] Bilirubin,Urine Negative Normal Negative [facility] Comment on above: Order Comment: Name Collection Type:: Clean-Voided Midstream Performed By: #### U A #### [facility] [address] [place] [address] [place] Color (U) Yellow Normal [facility] Comment on above: Order Comment: Name Collection Type:: Clean-Voided Midstream Performed By: #### U A #### [facility] [address] [place] [address] [place] Glucose Ql (U) Normal Normal [facility] Comment on above: Order Comment: Name Collection Type:: Clean-Voided Midstream Performed By: #### U A #### [facility] [address] [place] [address] Ketones Ql (U) Trace High Negative [facility] Comment on above: Order Comment: Name Collection Type:: Clean-Voided Midstream Performed By: #### U A #### [address] Leukocyte esterase Test strip Ql (U) Negative Normal [facility] Comment on above: Order Comment: Name Collection Type:: Clean-Voided Midstream Performed By: #### U A #### [place] [address] [place] Nitrite,Urine Negative Normal Negative [facility] Comment on above: Order Comment: Name Collection Type:: Clean-Voided Midstream Performed By: #### U A #### [place] [address] [place] Occult Blood,Urine Negative Normal Negative [facility] Comment on above: Order Comment: Name Collection Type:: Clean-Voided Midstream Result Comment: PERF ORMED BY: [place] [address] PATHOLOGIST TEAM ASSISTANT RENE ALCANTARA M.D. Performed By: #### U A #### [facility] [address] [place] [address] [place] pH (U) 6.0 [pH] Normal 5.0-9.0 [facility] Comment on above: Order Comment: Name Collection Type:: Clean-Voided Midstream Performed By: #### U A #### [place] [address] [place] Protein,Urine Negative Normal Negative [facility] Comment on above: Order Comment: Name Collection Type:: Clean-Voided Midstream Performed By: #### U A #### [address] [place] [address] [facility] Specificy Everson,Urine 1.005 Normal 1.001-1.030 [facility] Comment on above: Order Comment: Name Collection Type:: Clean-Voided Midstream Performed By: #### U A #### [facility] [address] [place] [id number] [facility] Urobilinogen,Urine Normal Normal Normal [facility] Comment on above: Order Comment: Name Collection Type:: Clean-Voided Midstream Performed By: #### U A #### [facility] [address] [place] [id number] [facility] Urine clarity by refractomet ry automatedOrdered By: Kaley Herman on 09-08-2022 Clarity Refractometry automated (U) Clear [facility] Urine glucose measurement by automated test strip (mass/volume)Ordered By: Kaley Herman on 09-08-2022 Glucose Auto test strip (U) [Mass/Vol] Normal mg/dL [facility] Urine hemoglobin detection b y automated test stripOrdered By: Kaley Herman on 09-08-2022 Hemoglobin Auto test strip Ql (U) Negative Negative [facility] Urine leukocyte esterase det ection by automated test stripOrdered By: Kaley Herman on 09-08-2022 Leukocyte esterase Auto test strip Ql (U) Negative Negative [facility] Urobilinogen Auto test strip (U) [Mass/Vol]Ordered By: Kaley Herman on 09-08-2022 Urobilinogen (U) [Mass/Vol] Normal mg/dL [facility] Vitamin D 25 Hydroxy Totalon 09-08-2022 Vitamin D 25 Hydroxy Total 9.6 ng/mL Low 30-100 [facility] Comment on above: Result Comment: KAYLEE MIN D STATUS 25(OH)VITAMIN D RANGE (ng/mL) Deficient <20 Insufficient 20 to <30 Sufficient 30 to 100 Reference: Ez MF,Petey PATE, Suzette VIRK, et al. Evaluation,treatment, and prevention of vitamin D deficiency; an Endocrine Society clinical practice guideline. JCEM. 2010; 96(7):1911-30. PERFORMED BY: [facility] [address] [place] [id number] PATHOLOGIST TEAM ASSISTANT RENE ALCANTARA M.D. Performed By: #### T SH3 wRFLX, [id number], LIPID #### [facility] [address] [place] [address] [place] pH Auto test strip (U)Ordere d By: aKley Herman on 09-08-2022 pH (U) 6.0 [pH] 5.0-9.0 [facility] OCC BLD IMMUNO SCREENon 08-19 OCCULT BLOOD Negative Normal NEGATIVE [facility] Comment on above: Performed By: #### O BSCRN #### [facility] [address] [place] [address] Dr. Francesca Mccabe CBC AUTO DIFFon 09-02-2022 BASO # 0.1 103/ul Normal 0.0-0.1 [facility] Comment on above: Performed By: #### C BC #### [facility] [address] [place] [address] Dr. Francesca Mccabe Basophils/100 WBC (Bld) 0.5 % Normal 0.2-2.0 [facility] Comment on above: Performed By: #### C BC #### [facility] [address] [place] [address] Dr. Francesca Mccabe EO # 0.1 103/ul Normal 0.0-0.7 [facility] Comment on above: Performed By: #### C BC #### [facility] [address] [place] [address] Dr. Francesca Mccabe Eosinophils/100 WBC (Bld) 0.5 % Critically low 0.9-7.0 [facility] Comment on above: Performed By: #### C BC #### [facility] [address] [place] [address] Dr. Francesca Mccabe Erythrocyte distribution width (RBC) [Ratio] 13.8 % Normal 11.0-15.0 [facility] Comment on above: Performed By: #### C BC #### [facility] [address] [place] [address] Dr. Francesca Mccabe Hematocrit (Bld) [Volume fraction] 51.0 % Normal 42.0-54.0 [facility] Comment on above: Performed By: #### C BC #### [facility] [address] [place] [address] Dr. Francesca Mccabe Hemoglobin (Bld) [Mass/Vol] 17.3 g/dL Normal 14.0-18.0 [facility] Comment on above: Performed By: #### C BC #### [facility] [address] [place] [address] Dr. Francesca Mccabe IG # 0.17 10e3/ul Critically high 0.00-0.03 [facility] Comment on above: Performed By: #### C BC #### [facility] [address] [place] [address] Dr. Francesca Mccabe IG % 1.5 % Critically high 0.0-0.5 [facility] Comment on above: Performed By: #### C BC #### [facility] [address] [place] [address] Dr. Francesca Mccabe LYMPH # 1.9 103/ul Normal 1.2-3.8 [facility] Comment on above: Performed By: #### C BC #### [facility] [address] [place] [address] Dr. Francesca Mccabe Lymphocytes/100 WBC (Bld) 16.9 % Critically low 20.5-60.0 [facility] Comment on above: Performed By: #### C BC #### [facility] [address] [place] [address] Dr. Francesca Mccabe MANUAL DIFF REQ NO Normal [facility] Comment on above: Performed By: #### C BC #### [facility] [address] [place] [address] Dr. Francesca Mccabe MCH (RBC) [Entitic mass] 28.4 pg Normal 25.9-34.0 [facility] Comment on above: Performed By: #### C BC #### [facility] [address] [place] [address] Dr. Francesca Mccabe MCHC (RBC) [Mass/Vol] 33.9 g/dL Normal 29.9-35.2 [facility] Comment on above: Performed By: #### C BC #### [facility] [address] [place] [address] [address] Francesca Mccabe MCV (RBC) [Entitic vol] 83.7 fL Normal 80.0-94.0 [facility] Comment on above: Performed By: #### C BC #### [facility] [address] [place] [address] [address] Francesca Mccabe MONO # 0.9 103/ul Critically high 0.3-0.8 [facility] Comment on above: Performed By: #### C BC #### [facility] [address] [place] [address] Dr. Francesca Mccabe Monocytes/100 WBC (Bld) 8.2 % Normal 1.7-12.0 [facility] Comment on above: Performed By: #### C BC #### [facility] [address] [place] [address] Dr. Francesca Mccabe NEUT # 8.1 103/ul Critically high 1.4-6.5 [facility] Comment on above: Performed By: #### C BC #### [facility] [address] [place] [address] Dr. Francesca Mccabe Neutrophils/100 WBC (Bld) 72.4 % Normal 43.0-75.0 [facility] Comment on above: Performed By: #### C BC #### [facility] [address] [place] [address] Dr. Francesca Mccabe Platelet mean volume (Bld) [Entitic vol] 11.0 fL Normal 9.5-13.5 [facility] Comment on above: Performed By: #### C BC #### [facility] [address] [place] [address] Dr. Francesca Mccabe PLT 246 103/ul Normal 150-450 [facility] Comment on above: Performed By: #### C BC #### [facility] [address] [place] [address] Dr. Francesca Mccabe RBC 6.09 106/ul Normal 4.70-6.10 [facility] Comment on above: Performed By: #### C BC #### [facility] [address] [place] [address] [address] Francesca Mccabe WBC 11.1 103/ul Critically high 4.0-11.0 [facility] Comment on above: Performed By: #### C BC #### [facility] [address] [place] [address] [address] Francesca Mccabe PROF 14(COMP METB)on 022 Albumin [Mass/Vol] 4.3 g/dL Normal 3.4-5.0 [facility] Comment on above: Performed By: #### C MP #### [facility] [address] [place] [address] Dr. Francesca Mccabe Albumin/Globulin [Mass ratio] 1.2 {ratio} Normal [facility] Comment on above: Performed By: #### C MP #### [facility] [address] [place] [address] Dr. Francesca Mccabe ALP [Catalytic activity/Vol] 73 U/L Normal 46-116 [facility] Comment on above: Performed By: #### C MP #### [facility] [address] [place] [address] [address] Francesca Mccabe ALT [Catalytic activity/Vol] 65 U/L Critically high 16-63 [facility] Comment on above: Performed By: #### C MP #### [facility] [address] [place] [address] [address] Francesca Mccabe Anion gap [Moles/Vol] 14.8 mmol/L Normal [facility] Comment on above: Performed By: #### C MP #### [facility] [address] [place] [address] [address] Francesca Mccabe AST [Catalytic activity/Vol] 34 U/L Normal 15-37 [facility] Comment on above: Performed By: #### C MP #### [facility] [address] [place] [address] [address] Francesca Mccabe Bilirubin [Mass/Vol] 1.7 mg/dL Critically high 0.2-1.0 [facility] Comment on above: Performed By: #### C MP #### [facility] [address] [place] [address] [address] Francesca Mccabe Calcium [Mass/Vol] 9.3 mg/dL Normal 8.5-10.1 [facility] Comment on above: Performed By: #### C MP #### [facility] [address] [place] [address] [address] Francesca Mccabe Chloride [Moles/Vol] 105 mmol/L Normal 98-107 [facility] Comment on above: Performed By: #### C MP #### [facility] [address] [place] [address] [address] Francesca Mccabe CO2 [Moles/Vol] 21.7 mmol/L Normal 21.0-32.0 [facility] Comment on above: Performed By: #### C MP #### [facility] [address] [place] [address] Dr. Francesca Mccabe Creatinine [Mass/Vol] 1.12 mg/dL Normal 0.70-1.30 [facility] Comment on above: Performed By: #### C MP #### [facility] [address] [place] [address] Dr. Francesca Mccabe EGFR-AF GHANAIAN >60 Normal >=60 [facility] Comment on above: Performed By: #### C MP #### [facility] [address] [place] [address] Dr. Francesca Mccabe EGFR-NON AF GHANAIAN >60 Normal >=60 [facility] Comment on above: Performed By: #### C MP #### [facility] [address] [place] [address] Dr. Francesca Mccabe Globulin (S) [Mass/Vol] 3.6 g/dL Normal [facility] Comment on above: Performed By: #### C MP #### [facility] [address] [place] [address] Dr. Francesca Mccabe Glucose [Mass/Vol] 93 mg/dL Normal 74-106 [facility] Comment on above: Performed By: #### C MP #### [facility] [address] [place] [address] Dr. Francesca Mccabe Potassium [Moles/Vol] 3.5 mmol/L Normal 3.5-5.1 [facility] Comment on above: Performed By: #### C MP #### [facility] [address] [place] [address] [address] Francesca Mccabe Protein [Mass/Vol] 7.9 g/dL Normal 6.4-8.2 [facility] Comment on above: Performed By: #### C MP #### [facility] [address] [place] [address] [address] Francesca Mccabe Sodium [Moles/Vol] 138 mmol/L Normal 136-145 [facility] Comment on above: Performed By: #### C MP #### [facility] [address] [place] [address] [address] Francesca Mccabe Urea nitrogen [Mass/Vol] 9.0 mg/dL Normal 7.0-18.0 [facility] Comment on above: Performed By: #### C MP #### [facility] [address] [place] [address] [address] Francesca Mccabe Urea nitrogen/Creatinine [Mass ratio] 8.0 mg/mg Normal [facility] Comment on above: Performed By: #### C MP #### [facility] [address] [place] [id number] Francesca Mccabe DERRICK - TITERon 07-14-2022 DERRICK by HEp-2 CELLS Negative Normal (NEG - NEG) [facility] Comment on above: Performed By: #### E SRCRP, *DERRICK, CCP, RHF #### [facility] [address] [facility], [address] DERRICK TITER 1:40 Normal (<1:40 - 1:40) [facility] Comment on above: Performed By: #### E SRCRP, *DERRICK, CCP, RHF #### [facility] [address] [facility], [address] RF FACTORon 07-14-2022 RF FACTOR <9 Normal (0 - 12) [facility] Comment on above: Result Comment: RF F ACTOR = LESS THAN 9 IU/ML RF FACTOR MIN. DETECTION = 9 IU/ML. Performed By: #### E SRCRP, *DERRICK, CCP, RHF #### [facility] [address] [facility], [address] SED RATE - CRPon 07-14-2022 CRP EXTENDED RANGE 4.96 MG/L High (0.00 - 3.20) [facility] Comment on above: Order Comment: FACIL ITY: [facility] [id number] Performed By: #### E SRCRP, *DERRICK, CCP, RHF #### [facility] [address] [facility], [address] SED RATE WEST. 12 MM/HR Normal (0 - 24) [facility] Comment on above: Order Comment: FACIL ITY: [facility] [id number] Performed By: #### E SRCRP, *DERRICK, CCP, RHF #### [facility] [address] [facility], [address] Automated basophil %on 02-11 Basophils/100 WBC (Bld) 0.7 % [facility] Automated basophil counton 0 02-11-2021 Basophils (Bld) [#/Vol] 0.1 10*3/uL 0.0-0.2 [facility] Automated blood lymphocyte c ount (number/volume)on 02-11-2021 Lymphocytes (Bld) [#/Vol] 2.4 10*3/uL 1.00-4.8 [facility] Automated blood lymphocyte c ount as percentage of total leukocyteson 02-11-2021 Lymphocytes/100 WBC (Bld) 26.7 % [facility] Automated blood monocyte cou nton 02-11-2021 Monocytes (Bld) [#/Vol] 0.8 10*3/uL 0.0-0.8 [facility] Automated blood platelet cou nt (count/volume)on 02-11-2021 Platelets (Bld) [#/Vol] 201 10*3/uL 150-450 [facility] Automated blood platelet frank n volume measurementon 02-11-2021 Platelet mean volume (Bld) [Entitic vol] 8.7 fL 6.6-10.1 [facility] Automated eosinophil %on Eosinophils/100 WBC (Bld) 6.3 % [facility] Automated eosinophil counton 02-11-2021 Eosinophils (Bld) [#/Vol] 0.6 10*3/uL 0.0-0.45 [facility] Automated erythrocyte distri bution width ratioon 02-11-2021 Erythrocyte distribution width (RBC) [Ratio] 14.3 % 12.0-14.8 [facility] Automated erythrocyte mean c orpuscular hemoglobin (mass per erythrocyte)on 02-11-2021 MCH (RBC) [Entitic mass] 29.2 pg 27.5-35.2 [facility] Automated erythrocyte mean c orpuscular hemoglobin concentration measurement (mass/volon 02-11-2021 MCHC (RBC) [Mass/Vol] 34.4 g/dL 32.5-35.6 [facility] Automated erythrocyte mean c orpuscular volumeon 02-11-2021 MCV (RBC) [Entitic vol] 84.8 fL 83.5-101 [facility] Automated monocyte %on 02-11 Monocytes/100 WBC (Bld) 8.8 % [facility] Automated neutrophil %on Neutrophils/100 WBC (Bld) 57.5 % [facility] Blood erythrocytes automated count (number/volume)on 02-11-2021 RBC (Bld) [#/Vol] 5.54 10*6/uL 3.90-5.60 [facility] Blood hemoglobin measurement (mass/volume)on 02-11-2021 Hemoglobin (Bld) [Mass/Vol] 16.2 g/dL 13.0-17.0 [facility] Blood leukocytes automated c ount (number/volume)on 02-11-2021 WBC (Bld) [#/Vol] 9.0 10*3/uL 4.1-10.5 [facility] Blood neutrophil count by au tomated method (number/volume)on 02-11-2021 Neutrophils (Bld) [#/Vol] 5.2 10*3/uL 1.8-7.7 [facility] Estimated glomerular filtrat ion rate (GFR) non- Americanon 02-11-2021 GFR/1.73 sq M predicted among non-blacks MDRD (S/P/Bld) [Vol rate/Area] > 60 mL/Min [facility] Hematocrit [Volume Fraction] of Blood by Automated counton 02-11-2021 Hematocrit (Bld) [Volume fraction] 47.0 % 38.8-50.0 [facility] Otheron 02-11-2021 GFR/1.73 sq M.predicted MDRD (S/P/Bld) [Vol rate/Area] > 60 mL/Min [facility] Comment on above: GFR estimated refere nce range: According to KDOQI guidelines, <60 ml/min/1.73m2 is sufficient to diagnose a patient with chronic kidney disease. Nucleated RBC/100 WBC (Bld) [Ratio] 0.3 % 0-0.5 [facility] Creatinine Clearance (Chem N/A [facility] Serum or plasma calcium fazal urement (mass/volume)on 02-11-2021 Calcium [Mass/Vol] 9.0 mg/dL 8.2-10.2 [facility] Serum or plasma chloride frank surement (moles/volume)on 02-11-2021 Chloride [Moles/Vol] 104 mmol/L 95-114 [facility] Serum or plasma creatinine m easurement with calculation of estimated glomerular filtron 02-11-2021 Creatinine [Mass/Vol] 0.77 mg/dL 0.64-1.27 [facility] Serum or plasma glucose fazal urement (mass/volume)on 02-11-2021 Glucose [Mass/Vol] 89 mg/dL 70-100 [facility] Comment on above: ADA recommended refe rence rangeRandom Glucose Reference Range is dependent on time and content of last meal. Glucose of more than 200 mg/dL in a nonstressed, ambulatory subject supports the diagnosis of Diabetes Mellitus. Serum or plasma potassium me asurement (moles/volume)on 02-11-2021 Potassium [Moles/Vol] 3.8 mmol/L 3.5-5.1 [facility] Serum or plasma sodium measu rement (moles/volume)on 02-11-2021 Sodium [Moles/Vol] 135 mmol/L 136-146 [facility] Serum or plasma total carbon dioxide measurement (moles/volume)on 02-11-2021 CO2 [Moles/Vol] 22.9 mmol/L 22.0-30.0 [facility] Serum or plasma urea nitroge n measurement (mass/volume)on 02-11-2021 Urea nitrogen [Mass/Vol] 11 mg/dL 9 [facility] COVID-19 Positive/Negativeon 01-14-2021 COVID-19 Positive/Negative Positive Negative [facility] Comment on above: Critical valueresult calledat 8 on 01/14/21Testing for SARS-CoV-2 by RT-PCRThis test was developed and its performance characteristics determined by [employer] ([place]) and [facility]. This test has not been FDA cleared or approved. This test has been authorized by FDA under an Emergency Use Authorization (EUA). This test has been validated in accordance with the FDA's Guidance Document (Policy for Diagnostics Testing in Laboratories Certified to Perform High Complexity Testing under CLIA prior to Emergency Use Authorization for Coronavirus Disease-2019 during the Public Health Emergency) issued on February 19, 2020. This test is only authorized for the duration of time the declaration that circumstances exist justifying the authorization of the emergency use of in vitro diagnostic tests for detection of SARS-CoV-2 virus and/or diagnosis of COVID-19 infection under section 564(b)(1) of the Act, 21 U.S.C. 360bbb-3(b)(1), unless the authorization is terminated or revoked sooner. Otheron 01-14-2021 Coronavirus 2019 PCR Interp N/A [facility] Automated basophil %on 01-10 Basophils/100 WBC (Bld) 0.4 % [facility] Automated basophil counton 0 01-10-2021 Basophils (Bld) [#/Vol] 0.0 10*3/uL 0.0-0.2 [facility] Automated blood lymphocyte c ount (number/volume)on 01-10-2021 Lymphocytes (Bld) [#/Vol] 2.2 10*3/uL 1.00-4.8 [facility] Automated blood lymphocyte c ount as percentage of total leukocyteson 01-10-2021 Lymphocytes/100 WBC (Bld) 25.0 % [facility] Automated blood monocyte cou nton 01-10-2021 Monocytes (Bld) [#/Vol] 0.8 10*3/uL 0.0-0.8 [facility] Automated blood platelet cou nt (count/volume)on 01-10-2021 Platelets (Bld) [#/Vol] 226 10*3/uL 150-450 [facility] Automated blood platelet frank n volume measurementon 01-10-2021 Platelet mean volume (Bld) [Entitic vol] 9.4 fL 6.6-10.1 [facility] Automated eosinophil %on Eosinophils/100 WBC (Bld) 5.0 % [facility] Automated eosinophil counton 01-10-2021 Eosinophils (Bld) [#/Vol] 0.4 10*3/uL 0.0-0.45 [facility] Automated erythrocyte distri bution width ratioon 01-10-2021 Erythrocyte distribution width (RBC) [Ratio] 14.5 % 12.0-14.8 [facility] Automated erythrocyte mean c orpuscular hemoglobin (mass per erythrocyte)on 01-10-2021 MCH (RBC) [Entitic mass] 28.9 pg 27.5-35.2 [facility] Automated erythrocyte mean c orpuscular hemoglobin concentration measurement (mass/volon 01-10-2021 MCHC (RBC) [Mass/Vol] 34.3 g/dL 32.5-35.6 [facility] Automated erythrocyte mean c orpuscular volumeon 01-10-2021 MCV (RBC) [Entitic vol] 84.2 fL 83.5-101 [facility] Automated monocyte %on 01-10 Monocytes/100 WBC (Bld) 8.7 % [facility] Automated neutrophil %on Neutrophils/100 WBC (Bld) 60.9 % [facility] Blood erythrocytes automated count (number/volume)on 01-10-2021 RBC (Bld) [#/Vol] 5.59 10*6/uL 3.90-5.60 [facility] Blood hemoglobin measurement (mass/volume)on 01-10-2021 Hemoglobin (Bld) [Mass/Vol] 16.1 g/dL 13.0-17.0 [facility] Blood leukocytes automated c ount (number/volume)on 01-10-2021 WBC (Bld) [#/Vol] 8.6 10*3/uL 4.1-10.5 [facility] Blood neutrophil count by au tomated method (number/volume)on 01-10-2021 Neutrophils (Bld) [#/Vol] 5.3 10*3/uL 1.8-7.7 [facility] Estimated glomerular filtrat ion rate (GFR) non- Americanon 01-10-2021 GFR/1.73 sq M predicted among non-blacks MDRD (S/P/Bld) [Vol rate/Area] mL/min/{1.73_m2} [facility] Hematocrit [Volume Fraction] of Blood by Automated counton 01-10-2021 Hematocrit (Bld) [Volume fraction] 47.0 % 38.8-50.0 [facility] Otheron 01-10-2021 GFR/1.73 sq M.predicted MDRD (S/P/Bld) [Vol rate/Area] mL/min/{1.73_m2} [facility] Comment on above: GFR estimated refere nce range: According to KDOQI guidelines, <60 ml/min/1.73m2 is sufficient to diagnose a patient with chronic kidney disease. Nucleated RBC/100 WBC (Bld) [Ratio] 0.3 % 0-0.5 [facility] Creatinine Clearance (Chem N/A [facility] Serum or plasma calcium fazal urement (mass/volume)on 01-10-2021 Calcium [Mass/Vol] 9.2 mg/dL 8.2-10.2 [facility] Serum or plasma chloride frank surement (moles/volume)on 01-10-2021 Chloride [Moles/Vol] 106 mmol/L 95-114 [facility] Serum or plasma creatinine m easurement with calculation of estimated glomerular filtron 01-10-2021 Creatinine [Mass/Vol] 0.80 mg/dL 0.64-1.27 [facility] Serum or plasma glucose fazal urement (mass/volume)on 01-10-2021 Glucose [Mass/Vol] 99 mg/dL 70-100 [facility] Comment on above: ADA recommended refe rence rangeRandom Glucose Reference Range is dependent on time and content of last meal. Glucose of more than 200 mg/dL in a nonstressed, ambulatory subject supports the diagnosis of Diabetes Mellitus. Serum or plasma potassium me asurement (moles/volume)on 01-10-2021 Potassium [Moles/Vol] 4.0 mmol/L 3.5-5.1 [facility] Serum or plasma sodium measu rement (moles/volume)on 01-10-2021 Sodium [Moles/Vol] 139 mmol/L 136-146 [facility] Serum or plasma total carbon dioxide measurement (moles/volume)on 01-10-2021 CO2 [Moles/Vol] 22.9 mmol/L 22.0-30.0 [facility] Serum or plasma urea nitroge n measurement (mass/volume)on 01-10-2021 Urea nitrogen [Mass/Vol] 10 mg/dL 9-23 [facility] Vital Signs Date Time Vital Sign Value Performing Clinician Facility 03-13-2023 14:00-0400 Body height 182.88 cm [employer] Other [facility] Other 03-13-2023 14:00-0400 Body mass index (BMI) [Ratio] 34.17 kg/m2 [employer] Other [facility] Other 03-13-2023 14:00-0400 Body weight 114.31 kg [employer] Other [facility] Other 03-13-2023 14:00-0400 Diastolic blood pressure 80 mm[Hg] [employer] Other [facility] Other 03-13-2023 14:00-0400 Systolic blood pressure 141 mm[Hg] [employer] Other [facility] Other 12-11-2022 09:50-0500 Diastolic blood pressure 66 mm[Hg] MD Charlie Rea Work Phone: [facility] 12-11-2022 09:50-0500 Heart rate 63 /min MD Charlie Rea Work Phone: [facility] 12-11-2022 09:50-0500 Respiratory rate 20 /min MD Charlie Rea Work Phone: [facility] 12-11-2022 09:50-0500 SaO2% (BldA) [Mass fraction] 100 % MD Charlie Rea Work Phone: [facility] 12-11-2022 09:50-0500 Systolic blood pressure 113 mm[Hg] MD Charlie Rea Work Phone: [facility] 12-11-2022 08:35-0500 Body height 180.34 cm MD Charlie Rea Work Phone: [facility] 12-11-2022 08:35-0500 Body temperature 99 [degF] MD Charlie Rea Work Phone: [facility] 12-11-2022 08:35-0500 Body weight 114.3 kg MD Charlie Rea Work Phone: [facility] 09-14-2022 15:30-0400 Body height 182.88 cm Feliciano Hodge Other [facility] Other 09-14-2022 15:30-0400 Body mass index (BMI) [Ratio] 36.48 kg/m2 Feliciano Hodge Other [facility] Other 09-14-2022 15:30-0400 Body weight 122.02 kg Feliciano Hodge Other [facility] Other 09-14-2022 15:30-0400 Diastolic blood pressure 79 mm[Hg] Feliciano Syedangelica Other [facility] Other 09-14-2022 15:30-0400 Systolic blood pressure 151 mm[Hg] Feliciano Leungcharli Other [facility] Other 09-10-2022 07:30-0400 Body temperature 97.5 [degF] MD Gala Joseph Work Phone: [facility] 09-10-2022 07:30-0400 Diastolic blood pressure 98 mm[Hg] MD Gala Joseph Work Phone: [facility] 09-10-2022 07:30-0400 Heart rate 94 /min MD Gala Joseph Work Phone: [facility] 09-10-2022 07:30-0400 SaO2% (BldA) [Mass fraction] 100 % MD Gala Joseph Work Phone: [facility] 09-10-2022 07:30-0400 Systolic blood pressure 152 mm[Hg] MD Gala Joseph Work Phone: [facility] 09-09-2022 20:43-0400 Respiratory rate 16 /min MD Gala Joseph Work Phone: [facility] 09-08-2022 10:55-0400 Body height 180.34 cm MD Gala Joseph Work Phone: [facility] 09-08-2022 10:55-0400 Body weight 120.85 kg MD Gala Joseph Work Phone: [facility] 10-25-2021 14:40-0500 Body height 182.88 cm Cesario Alejandre Other [facility] Other 10-25-2021 14:40-0500 Body mass index (BMI) [Ratio] 41.9 kg/m2 Cesario Alejandre Other [facility] Other 10-25-2021 14:40-0500 Body weight 140.16 kg Cesario Alejandre Other [facility] Other 08-30-2021 15:40-0400 Body height 182.88 cm Cesario Alejandre Other [facility] Other 08-30-2021 15:40-0400 Body mass index (BMI) [Ratio] 41.9 kg/m2 Cesario Alejandre Other [facility] Other 08-30-2021 15:40-0400 Body weight 140.16 kg Cesario Alejandre Other [facility] Other 08-30-2021 15:40-0400 Diastolic blood pressure 72 mm[Hg] Cesario Alejandre Other [facility] Other 08-30-2021 15:40-0400 Systolic blood pressure 137 mm[Hg] Cesario Alejandre Other [facility] Other 01-17-2021 04:45-0500 BMI (Body Mass Index) 41.2 kg/m2 [facility] 01-17-2021 04:45-0500 Body Temperature 98.4 [degF] [facility] 01-17-2021 04:45-0500 Body weight [address] [facility] 01-17-2021 04:45-0500 BP Diastolic 73 mm[Hg] [facility] 01-17-2021 04:45-0500 BP Systolic 119 mm[Hg] [facility] 01-17-2021 04:45-[address] [facility] 01-17-2021 04:45-0500 Pulse (Heart Rate) 88 /min [facility] 01-17-2021 04:45-0500 Pulse Oximetry 98 % [facility] 01-17-2021 04:45-0500 Respiratory Rate 18 /min [facility] Encounters Encounter Date Encounter Type Care Provider Facility Start: 11-29-2023 End: 11-29-2023 ambulatory LISA BOSTON [facility] Start: 11-28-2023 Telephone encounter [facility] Start: 11-23-2023 Chart abstracting Scanning Pro vider External [facility] Start: 10-31-2023 End: 11-01-2023 ambulatory ANTONIO WALTER Not Available Start: 10-29-2023 End: 10-29-2023 ambulatory ANTONIO WALTER Not Available Start: 10-17-2023 End: 10-17-2023 ambulatory ANTONIO WALTER Not Available Start: 10-03-2023 End: 10-03-2023 ambulatory ANNAMARIE LAY Not Available Start: 10-01-2023 End: 10-01-2023 ambulatory CHARLIE REA Not Available Start: 04-05-2023 ambulatory SOLOMON Smallwood Facili ty:[facility] Start: 03-23-[address] CHARLIE REA Facility :[facility] Start: 03-13-2023 End: 03-13-2023 ambulatory [employer] Other [facility] Other Start: 03-13-2023 Office outpatient ne w 30 minutes [facility] Start: 03-06-2023 End: 03-06-2023 ambulatory NARENDRANATH LAKSHMIPATHY . Facility:[facility] Start: 02-15-2023 End: 02-16-2023 ambulatory NARENDRANATH LAKSHMIPATHY . Facility:[facility] Start: 01-25-2023 End: 01-26-[address] CHARLIE REA Facility:[facility] Start: 01-02-2023 End: 01-02-[address] CHARLIE REA Facility:[facility] Start: 12-11-2022 Telephone encounter [facility] Start: 12-11-2022 End: 12-11-2022 ambulatory Feliciano Hodge Facility[facility] Start: 12-11-2022 End: 12-11-2022 Admission to same day surgery center MD Charlie Rea Work Phone: [facility] Work Phone: Start: 12-11-2022 End: 12-11-2022 ambulatory MD Charlie Rea Work Phone: [facility] Work Phone: Start: 12-06-2022 End: 12-07-[address] CHARLIE REA Facility:[facility] Start: 11-28-2022 End: 11-28-[address] CHARLIE REA Facility:[facility] Start: 11-02-2022 End: 11-03-[address] CHARLIE REA Facility:[facility] Start: 09-19-2022 End: 09-19-[address] GALA JOSEPH Facility:[facility] Start: 09-14-2022 End: 09-14-2022 ambulatory Feliciano Syedangelica Other [facility] Other Start: 09-14-2022 [facility] visit new patient Feliciano Hodge [facility] Start: 09-11-2022 End: 09-12-[address] GALA JOSEPH Facility:[facility] Start: 09-08-2022 End: 09-10-2022 ambulatory Gala Joseph Facility[facility] Start: 09-08-2022 End: 09-10-2022 Evaluation and management of inpatient MD Gala Joseph Work Phone: [facility] Start: 09-06-2022 End: 09-06-[address] GALA JOSEPH Facility:[facility] Start: 09-05-2022 End: 09-06-[address] KEVIN ACOSTA . Facility:[facility] Start: 09-02-2022 End: 09-02-[address] PATRICIA VALENZUELA Facility:[facility] Start: 10-25-2021 End: 10-25-2021 ambulatory Cesario Alejandre Other [facility] Other Start: 10-25-2021 Office outpatient visit 15 minutes Cesario Alejandre [facility] Start: 08-30-2021 Office outpatient visit 25 minutes Cesario Alejandre [facility] Start: 02-11-2021 End: 02-11-2021 Patient encounter procedure Cesario Alejandre -Pre-Surgical Testing Start: 01-17-2021 End: 01-17-2021 Admission to day surgery Cesario Alejandre -Surgery [facility] Start: 01-14-2021 End: 01-14-2021 Patient encounter procedure Cesario Alejandre -Pre-Surgical Testing Start: 01-10-2021 End: 01-10-2021 Patient encounter procedure Cesario Alejandre -Pre-Surgical Testing Procedures Date Procedure Procedure Detail Performing Clinician Start: 12-11-2022 Esophagogastroduodenoscopy MD Charlie romero Work Phone: Start: 09-08-2022 CT of abdomen and pelvis without contrast MD Gala Joseph Work Phone: Start: 08-29-2022 Adult depression screening assessment [facility] Start: 07-14-2022 Cyclic citrullinated peptide antibody Comment on above: Performed By: #### ESRCRP, *DERRICK, CCP, RH F #### [facility] [address] [place], [address] Start: 01-17-2021 OR Cervical Fusion Anterior (Not Applicable) Cesario Alejandre Plan of Treatment Date Care Activity Detail Author Start: 03-03-2025 DTaP,Tdap and Td Vaccines (3 - Td or Tdap) DTaP,Tdap and Td Vaccines (3 - Td or Tdap) [facility] Start: 05-08-2024 Adult BMI Screening Adult BMI Screen ing [facility] Start: 05-08-2024 Tobacco Screening Tobacco Screening [facility] Start: 11-29-2023 End: 11-29-2023 Patient encounter procedure 11/29/2023 1:30 PM EST Office Visit [facility] [address] [place] [address] Lisa Boston MD [address] [place] [address] [facility] Start: 08-29-2023 Depression Screening Depression Scre ening [facility] Start: 07-20-2023 Influenza vaccination Influenza Vacc ine [facility] Start: 12-11-2022 [facility] Start: 09-10-2022 [facility] Start: 09-08-2022 Referral to clinical it support engineer [facility] Start: 09-08-2022 Hospital admission [facility] Start: 1995 Adult BMI Follow Up Plan Adult BMI Follow Up Plan [facility] Patient Education [facility] Work Phone: Patient referral [facility] Work Phone: Immunizations Immunization Date Immunization Notes Care Provider Fa cility 10-25-2022 influenza virus vaccine, unspecified formulation [facility] 03-03-2015 tetanus toxoid, redu emmanuel diphtheria toxoid, and acellular pertussis vaccine, adsorbed [facility] 06-15-2009 tetanus toxoid, redu emmanuel diphtheria toxoid, and acellular pertussis vaccine, adsorbed [facility] External [facility] Payers Date Payer Category Payer Self-pay [id number] 2020 Medicaid [place] [employer] [place] [employer] [id number] 2020-Present [phone] [place] [id number] 1977 Unknown [id number] 2.16.840.1.480544.3.579.2.593 1977 Unknown [id number] 2.16.840.1.838780.3.579.2.593 1977 Unknown [id number] 2.16.840.1.326084.3.579.2.593 1977 Unknown [id number] 2.16.840.1.378276.3.579.2.593 1977 Unknown [id number] 2.16.840.1.412029.3.579.2.593 1977 Unknown [id number] 2.16.840.1.447231.3.579.2.593 1977 Unknown [id number] 2.16.840.1.965659.3.579.2.59 1977 Unknown [id number] 2.16.840.1.807162.3.579.2.59 1977 Unknown [id number] 2.16.840.1.336296.3.579.2.59 1977 Unknown [id number] 2.16.840.1.578499.3.579.2.59 1977 Unknown [id number] 2.16.840.1.602753.3.579.2.59 1977 Unknown [id number] 2.16.840.1.546157.3.579.2.59 1977 Unknown [id number] 2.16.840.1.316007.3.579.2.593 1977 Unknown [id number] 2.16.840.1.995639.3.579.2.593 1977 Unknown [id number] 2.16.840.1.387872.3.579.2.1259 1977 Unknown [id number] 2.16.840.1.784525.3.579.2.1259 1977 Unknown [id number] 2.16.840.1.688492.3.579.2.125 1977 Unknown [id number] 2.16.840.1.436499.3.579.2.1259 1977 Unknown [id number] 2.16.840.1.252614.3.579.2.125 1977 Unknown [id number] 2.16.840.1.984392.3.579.2.1286 1977 Unknown [id number] 2.16.840.1.524576.3.579.2.1286 1959 Unknown [id number] Unknown [id number] Unknown [employer] [id number] Unknown [id number] 2.16.840.1.222928.3.579.2.531 Unknown [id number] 2.16.840.1.467966.3.579.2.531 Social History Date Type Detail Facility Start: 01-10-2021 End: 09-07-2022 Tobacco smoking status IAIS Ex-smoker (finding) [facility] Start: 1975 Sex Assigned At Male [facility] Start: 08-29-2022 End: 05-08-2023 Sex Assigned At [facility] End: 11-19-2008 History of tobacco use Current smoker [facility] End: 11-19-2008 History of tobacco use Cigarette Smoker [facility] Start: 09-07-2022 Tobacco use and exposure Forme r smokeless tobacco user [facility] Start: 11-23-2023 Alcohol intake Ex-drinker (finding) [facility] Start: 08-29-2022 End: 11-23-2023 Alcohol intake [facility] Do you belong to any clubs or organizations such as orthodoxy groups, unions, fraternal or athletic groups, or school groups? No [facility] Attends Club or Organization Meetings Not on file [facility] Are you now , , , , never or living with a partner? Living with partner [facility] How often to you hav e a drink containing alcohol? Monthly or less [facility] How many standard dr inks containing alcohol do you have on a typical day? 1 or 2 [facility] How often do you hav e 6 or more drinks on 1 occasion? Less than monthly [facility] How hard is it for y ou to pay for the very basics like food, housing, medical care, and heating Somewhat hard [facility] Do you feel stress - tense, restless, nervous, or anxious, or unable to sleep at night because your mind is troubled all the time - these days [OSQ] Very much [facility] Start: 08-29-2022 Education [address] [employer] Start: 1975 Sex Assigned At Not on file [facility] Medical Equipment Procedure Code Equipment Code Equipment Origin al Text Equipment Identifier Dates Spinal fixation plate, non-bioabsorbable ()[id number] FDA Start: 02-21-2021 Spinal fixation plate, non-bioabsorbable ()[id number] FDA Start: 02-21-2021 Intervertebral-b mandy internal spinal fixation system ()[id number] FDA Start: 02-21-2021 Intervertebral-b mandy internal spinal fixation system ()[id number] FDA Start: 02-21-2021 Goals Date Patient Goal Desired Activity /State Functional Status Date Assessment Result Facility 09-10-2022 Functional status Patient at Baseline [facility] Work Phone: Mental Status Date Assessment Result Facility 09-10-2022 Cognitive function Cognitive Sta tus Patient at [facility] Work Phone: Clinical Notes 08-30-2021 to 11-28-2023 Telephone Encounter - Nat Cary CMA - 11/28/2023 1:03 PM ESTTelephone Encounter - Nat Cary CMA - 11/28/2023 1:03 PM EST Note Date & Type Note Facility 11-28-2023 Miscellaneous Notes Formattin g of this note might be different from the original. Left message for patient to remind them to bring their most current medication list with them to their appointment. documented in this encounter Chumen Wenwen 11-28-2023 Telephone encount er Note Left message for patient to remind them to bring their most current medication list with them to their appointment. [facility] Evaluation note Encounter Date Diagnosis Assessment Notes Feb, Gastroesophageal reflux disease, unspecified whether esophagitis present (ICD-10 - K21.9) This patient experiences dyspeptic complaints after EGD however this patient was to start PPI and did not. Recommendation for twice daily dosing as this patient is still experiencing rare dysphagia as well as dyspeptic complaints of bloating, belching and abdominal pain Rto 3 months Feb, Alternating constipation and diarrhea (ICD-10 - R19.8) Patient experiencing alternation and constipation diarrhea recommendation for probiotic and Metamucil fiber given as well as medication for constipation best medication and safest long-term is MiraLAX as it is a nonstimulating laxative. [employer] Other 03-30-2023 NoteCONSULTATION CONSULTATION DATE: 02/15/2023 TO: Dr. Rea CHIEF COMPLAINT: Includes severe neck pain occurring bilaterally. HISTORY: He reports the pain as being 5-7/10 pain, sharp in character. He reports that this is below the level of pain that he had prior to his last visit and his last procedure. He reports the pain in his neck that he had prior to the last procedure is improved. He feels like his residual pain has moved down in his neck. It seems to increase with activity such as lifting maneuvers, pushing/pulling maneuvers and cervical extension. He feels most comfortable in the semi-recumbent position. Denied any change in bowel and bladder habits or new sensorimotor changes in his upper extremities. EXAM: Notable for the patient having no clinical radiculopathy or myelopathy involving his upper extremities Patient did have severe pain with cervical facet joint loading maneuvers occurring bilaterally at C5-6, C6-7. He had minimal to no pain involving the facet joints at C3-4 and C4-5. Again, in the past, he had addressed the C3-4 to C5 levels, and these areas appear to be stable. This is associated with a fair amount of myofascial spasm along the cervical paravertebral muscles occurring bilaterally as well. He had nothing to suggest shoulder joint dysfunction on today's visit. IMPRESSION: 1. The patient appears to have chronic pain secondary to fibromyalgia. 2. Cervical spondylosis with facet loading pain clinically. 3. Post laminectomy syndrome with pain occurring at the C5-6, C6-7 levels, which is the area of his previous anterior fusion, not posterior fusion. RECOMMENDATIONS: I have recommended proceeding with a diagnostic bilateral C5-6, C6-7 facet joint injection. I have placed him on baclofen 10 mg pills, 1- 2 b.i.d. for his myofascial spasm, and to continue with his independent physical therapy program. His BLANCA on today's visit is 42.[facility] 01-25-2023 NoteCONSULTATION CONSULTATION DATE: 01/25/2023 HISTORY OF PRESENT ILLNESS: This is a 47-year-old gentleman returning to the clinic status post #2 bilateral MBB of C3, C4 and C5, C6 completed on 01/02/2023 that afforded him 50% relief for two hours. Today, he rates his pain 8/10 and has a stabbing, burning and deep ache feeling in his neck. Patient helped move and drag a couch yesterday and believes this was the causative factor of his increased pain. Medications include Tylenol Arthritis, Ativan 0.5 mg p.r.n., gabapentin 400 mg t.i.d., Seroquel, Zoloft and a multivitamin regimen. He is unable to take oral NSAIDs due to breathing problems. Activities that aggravate his pain are twisting, reaching, pulling, lifting and housework. He does occasionally use heat which is slightly beneficial. He does have patchy hypoesthesia to bilateral arms and legs which was increased in his arms this morning upon awakening. Patient's REVIEW OF SYSTEMS / PAST MEDICAL HISTORY / ALLERGIES and IMAGES have been reviewed and noted on the chart. PHYSICAL EXAM: VITAL SIGNS: Blood pressure 110/71, heart rate is 76. Temperature is 97.5. He is 71 and weighs 120 kg. GENERAL IMPRESSION: Pleasant, appropriate, in no acute distress. FOCUSED EXAM - NECK: Range of motion is guarded in lateral rotation and flexion/extension. Bilateral cervical trapezius muscle are spasmodic with trigger points identified. Spinal axial pain is reproduced upon deep compression of the cervical facets of C3, C4 and C5, C6. Facet fullness palpated indicative of facet arthropathy, cervical spondylosis. MUSCULOSKELETAL: Bilateral upper extremities motor is 5/5. No overt weakness noted. NEUROLOGICALLY: Patchy hypoesthesia noted along the C5-C6 distribution to the finger tips. +1 brachioradialis reflexes bilaterally. DIAGNOSIS: Cervical degenerative disc disease, cervical spondylosis, cervicalgia and cervical trapezius spasms. PLAN: We will progress to radiofrequency ablation starting on the left side, subsequently move the right of C3, C4 and C5, C6. He is to trial heat alternating with ice, and I encouraged him to increase his magnesium to 800 mg daily. He is compliant with a vitamin regimen. Patient agrees with this plan and will be followed up in the clinic post procedure.[facility] 12-11-2022 Procedure [facility]01-18-2023 Note CONSULTATION CONSULTATION DATE: 12/06/2022 HISTORY OF PRESENT ILLNESS: This is a 47-year-old gentleman who returns to the clinic status post #1 bilateral MBB of C3, C4 and C5, C6. This was completed on 11/28/2022, which afforded the patient 90% relief for one day. Beginning on day three, the patient was complaining of right upper extremity weakness. He described it more as an ache and muscle soreness. He said he had trouble extending his arm, but could passively do it with his left arm. The pain and weakness have improved, but he is not quite to his baseline range of motion. Today, he reports his neck pain is 4-5/10. He describes it as an aching and a burning. His range of motion is still decreased in lateral rotation. He continues to have bilateral hypoesthesia to his upper extremities, which is episodic with activity. Activities that aggravate his pain are pushing, pulling, lateral rotation, evening hours, lifting, housework and ADLs. He does use heat which decreases his symptoms. Medication-garcia, patient is unable to take oral NSAIDs due to pulmonary problems. He takes gabapentin 400 mg t.i.d., arthritis strength Tylenol b.i.d. p.r.n. and a multivitamin regimen. Patient's REVIEW OF SYSTEMS / PAST MEDICAL HISTORY / ALLERGIES and IMAGES have been reviewed and noted on the chart. PHYSICAL EXAM: VITAL SIGNS: Blood pressure 109/71, heart rate is 73. Temperature is 97.7. He is 5'11, weighs 118 kg. GENERAL IMPRESSION: Pleasant, appropriate, no acute distress. FOCUSED EXAM - NECK: Range of motion is guarded in lateral rotation and flexion /extension. Cervical trapezius muscles are taut bilaterally, right greater than left. Flexion and extension are guarded as well. Reproduction of spinal axial pain upon deep compression along the cervical facets of C3, C4 and C5, C6, which pain does radiate below the shoulders on the right side. MUSCULOSKELETAL: Motor to right upper extremity is 4/5. Left is 5/5. Muscle tone adequate. NEUROLOGICAL: Patchy hypoesthesia noted along the C5-C6 dermatome to the right upper extremity. +1 bilateral brachioradialis and triceps reflexes. DIAGNOSIS: Cervical spondylosis, cervical degenerative disc disease, cervical radiculitis. PLAN: We will move forward with #2 bilateral MBB of C3, C4 and C5, C6. Patient is unable to tolerate muscle relaxers, so we will not include those today. He is to continue with heat and active range of motion to bilateral upper extremities. Patient agrees with this plan and will be followed up in the clinic post procedure.[id number] NoteCONSULTATION CONSULTATION DATE: 11/02/2022 HISTORY OF PRESENT ILLNESS: This is a 47-year-old gentleman who returns to the clinic for re-evaluation after completing physical therapy. He was last seen by Dr. Acosta as a new patient on 09/05/2022 for chronic neck pain. He was ordered medial branch blocks but was subsequently denied as the patient needed to complete physical therapy. The patient did do numerous visits but was subsequently discharged as he had no improvement and actually worsening of symptoms. He reports activities such as twisting, turning, pushing, pulling, doing laundry, cooking and bending aggravate his pain. He has a TENS unit which helps his symptoms somewhat. The patient does suffer from anxiety and was recently placed on Seroquel four days ago. In addition to that, he is on Lexapro, multivitamins, gabapentin 400 mg t.i.d. and Tylenol Arthritis. Patient states he is unable to oral NSAIDs as he has a type of reaction that interferes with his breathing. He does have bilateral radicular pain he describes as numbness and tingling. Patient's REVIEW OF SYSTEMS / PAST MEDICAL HISTORY / ALLERGIES and IMAGES have been reviewed and noted on the chart. PHYSICAL EXAM: VITAL SIGNS: Blood pressure is 123/79. Heart rate is 84. Temperature is 97.8. He is 5'11 , weighs 120 kg. GENERAL APPEARANCE: Pleasant, appropriate, somewhat anxious in the room. FOCUSED EXAM - NECK: Range of motion is guarded in lateral rotation and flexion/extension. Reproduction of patient's spinal axial pain noted to direct compression along the facets of C3, C4 and C5, C6 bilaterally. Trapezius muscles and splenius capitis muscles are taut and spasmodic. Radiating pain descending below the elbows to bilateral hands along the C5, C6, C7 distribution. NEUROLOGICALLY: Patient is cognitively intact. +1 bilateral brachioradialis reflexes. MUSCULOSKELETAL: Motor is intact, 5/5 bilaterally to bilateral upper extremities. DIAGNOSIS: Cervical spondylosis, cervical degenerative disc disease, cervical spasm, cervical radiculitis. PLAN: We will move forward to authorize for #1 bilateral MBB of C3, C4 and C5, C6. Did recommend use of heat and stretches as demonstrated for the patient. Patient agrees with the plan of care, would like to move forward. He will be followed up in the office thereafter.[facility] [id number] Evaluation note* Encounter Date Diagnosis Assessment Notes Treatment Notes Treatment Clinical Notes Aug, Alternating constipation and diarrhea (ICD-10 - R19.8) Aug, Rectal bleeding (ICD-10 - K62.5) [employer] [facility] Other 10-23-2022 Discharge summary Author [facility] September 10, 2022 11:06am Note Date/Time September 10, 2022 1 1:04am [facility] [address] [place] [address] Discharge Summary Signed Patient: Magnus García MR#: [id number] : 1975 Acct:[id number] Age/Sex: 47 / M Adm Date: 2 Loc: 1S Room: [address] [place] [address]: Red Cameron MD Copies to: MD Gala Pierce MD~ Providers Date of Discharge: 09/10/22 Discharging Provider: Red Cameron Primary Care Provider: Gala Joseph Consults: 09/08/22 14:10 Consult to Adult Hospitalist Routine Discharge Diagnosis (1) Abdominal pain: (2) Depression: (3) Anxiety: Final Diagnosis Final Discharge Diagnosis: Unspecified depressive disorder Unspecified anxiety disorder Summary Hospital Course Hospital course: According to admission note: Mr. García is a 47 year old male who presented due [facility] for depression and suicidal ideation. Upon assessment, patient reported that he has been experiencing depression and suicidal ideation.? He reported that he had a recent bad reaction to Lyrica 2 weeks ago and felt that the medication was increasing his anxiety and making himvery weak.? He reported that he stopped Lyrica roughly 2 weeks ago and the symptoms persisted.? He reported no prior major issues with anxiety or depression.? He reported that he has been having a lot of lower quadrant stomachpain and he has not been eating.? He reported a lot of nausea and his pain has affected his sleep.? He stated that he had suicidal thoughts yesterday but feelsrelieved when he was hospitalized.? He denied any hallucinations and denied any symptoms of star. Past psych history: Recently started seeing a therapist Past hospitalizations: Denies Past suicide attempts: Denies Family psych history: Reported family history of bipolar disorder Previous medications: Lyrica Alcohol and drug use: Reported medical marijuana Living: With family Employment: Unemployed It seemed that patient attributed most of his symptoms to his stomach pain issues and his bad reaction to Lyrica. He was put back on Neurontin which she stated was helpful for him in the past. He tolerated the medication without anyproblems and did not report any side effects. He noticed an improvement in his anxiety. He socialized with peers and attended groups. He did not exhibit any behavior concerning for suicidality during his hospital course and denied any further suicidality. On the day of discharge, he reported that he was doing better. He denied any abdominal pain, anxiety, depression, suicidality or hallucinations. He was comfortable with discharge plan home and following up with outpatient services. He was tolerating medications and thought that they were helpful for his anxiety. He was seen by hospitalist after his hospitalization who monitored his abdominalpain. He did not have any acute process on CT abdomen. Condition Condition at Discharge: Stable Status at Discharge Cognitive/behavioral status at discharge: Mental Status Exam: Appearance: grossly normal Mental Status: mental status grossly normal Mood: Euthymic mood Affect: Normal affect Speech and Movement: speech and movement normal and speech clear Attitude: cooperative Thought Process: normal Thought Content: Denied hallucinations, no homicidality and no suicidality Insight: Good Judgment: Good Functional status at discharge: independent ambulation Overall status at discharge: patient is back to baseline Time Spent with Patient Time spent providing/coordinating discharge services (# min): 30 Exam Physical Exam Vital Signs: Temp Pulse Resp BP Pulse Ox O2 Del Method 97.5 F L 94 H 16 152/98 H 100 Room Air 09/10/22 07:30 09/10/22 07:30 09/09/22 20:43 09/10/22 07:30 09/10/22 07:30 09/10/22 07:30 Discharge Plan Discharge Plan Patient Disposition: Home Activity: No Activity Restriction Diet: Regular Additional Instructions: Regular diet. No activity restrictions. Instructions: Depression, Adult (DC), Anxiety, Adult (DC), [facility] DC Instructions Prescriptions: New gabapentin 100 mg Capsule 200 mg PO TID 30 Days Qty: 180 0RF Continued fluticasone propionate 50 mcg/actuation spray,suspension 1 spray INTRANASAL DAILY Label Comments: SPRAY 1 SPRAY INTO EACH NOSTRIL EVERY DAY cyclobenzaprine 10 mg tablet 10 mg PO TID PRN (Reason: back spasms) Qty: 50 0RF tamsulosin 0.4 mg capsule 0.4 mg PO DAILY diphenhydramine HCl [Banophen] 25 mg tablet 25 mg PO QID PRN (Reason: Itching) Discontinued oxycodone 5 mg capsule 5 - 10 mg PO Q6H PRN (Reason: pain) 8 Days Qty: 60 0RF lorazepam 1 mg tablet 1 mg PO BID gabapentin 600 mg tablet 600 mg PO TID Follow Up: [facility] [Outside] [facility] [Outside] - 09/11/22 9:15 am (You have a follow-up telehealth appointment with [facility] in [place] on Sunday, September 11, 2022 at 9:15am. A hospice case manager will call you at the phone number you have provided. Additional appointments will be scheduled at this time.) Documented By: Red Cameron MD 09/10/221101 Signed By: <Electronically signed by Red Cameron MD> 09/10/221105 [facility] Work Phone: 1([phone]) 225-952810-22-2022 Progress note Author [facility] September 10, 2022 3:22pm Note Date/Time September 09, 2022 4 :47pm [facility] [address] [place] [address] Hospitalist Progress Note Signed with Addenda Patient: Magnus García MR#: [id number] : 1975 Acct:[id number] Age/Sex: 47 / M Adm Date: 2 Loc: Room: [address] [place] [address] Type: ADM IN Attending Dr: Red Cameron MD Copies to: ~ ADDENDUM2 I personally saw this patient on the day of the encounter, reviewed the history,performed the farooq elements of the exam, formulated the plan of care and confirmed the Nurse Practitioner's assessment and plan. - Pedrito Ignacio DO Addendum Documented By: Pedrito Ignacio DO 09/10/221521 Addendum Signed By: <Electronically signed by Pedrito Ignacio DO> 09/10/221521 ADDENDUM1 .. Addendum Documented By: SIXTO Herman 09/09/221803 Addendum Signed By: <Electronically signed by SIXTO Herman> 09/09/221803 Date of Service: 09/09/2022 Subjective Subjective Narrative: Patient seen and examined on follow-up. Denies any abdominal pain, nausea or vomiting or diarrhea. Afebrile Exam Physical Exam Vital Signs: Temp Pulse Resp BP Pulse Ox O2 Del Method 97.5 F L 81 18 118/82 98 Room Air 09/09/22 07:30 09/09/22 15:19 09/09/22 15:19 09/09/22 15:19 09/09/22 15:19 09/09/22 15:19 Narrative: CONST- Appears well -developed and well nourished No acute distress. HEAD - Normocephalic and atraumatic EENT-Sclera nonicteric and conjunctive are nonerythemic, moist oral mucosa, pharynx clear NECK-Supple, no cervical lymphadenopathy CARDIAC-normal rate, regular rhythm, normal S1 & S2. PULM-diminished without wheeze or rhonchi, RA, no accessory muscle use or cough noted ABD - Soft. Bowel sounds are normal. No distention No tenderness Meds Allergies and Active Meds Allergies Penicillins Allergy (Verified 02/21/21 08:50) Hives Sulfa (Sulfonamide Antibiotics) Allergy (Verified 02/21/21 08:50) Vomiting Active Meds: Active Medications Generic Name Dose Route Start Last Admin Trade Name Freq PRN Reason Stop Dose Admin Acetaminophen 500 mg 09/08/22 10:48 Acetaminophen 500 Mg Tablet PO 09/08/23 10:47 Q6H PRN Fever or Pain Al Hydrox/Mg Hydrox/Simethicone 30 ml 09/08/22 10:48 Mag Hydrox/Al Hydrox/Simeth 30 Ml Udc PO 09/08/23 10:47 Q6H PRN Indigestion Benztropine Mesylate 1 mg 09/08/22 10:48 Benztropine 2 Mg/2 Ml Ampul IM 09/08/23 10:47 Q6H PRN Dystonia Benztropine Mesylate 1 mg 09/08/22 10:48 Benztropine 1 Mg Tablet PO 09/08/23 10:47 Q6H PRN Dystonia Cyclobenzaprine HCl 10 mg 09/09/22 13:12 Cyclobenzaprine 10 Mg Tablet PO 09/09/23 13:11 TID PRN back spasms Diphenhydramine HCl 25 mg 09/09/22 13:11 Diphenhydramine 25 Mg Capsule PO QID PRN Itching Ergocalciferol 1,250 mcg 09/09/22 09:00 09/09/22 08:33 Ergocalciferol 1,250 Mcg (50,000 Units) Capsule PO 09/09/23 08:59 1,250 mcg Q7D BEV Administration Fluticasone Propionate 1 spray 09/10/22 09:00 Fluticasone Propionate Wendel 120 Wendel/16 Gm Bottle INTRANASAL 09/10/23 08:59 DAILY BEV Gabapentin 200 mg 09/09/22 14:00 09/09/22 13:26 Gabapentin 100 Mg Capsule PO 09/09/23 13:59 200 mg TID BEV Administration Hydroxyzine Pamoate 50 mg 09/08/22 10:48 09/09/22 09:53 Hydroxyzine Pamoate 50 Mg Capsule PO 09/08/23 10:47 50 mg Q6H PRN Administration Anxiety Ibuprofen 400 mg 09/08/22 10:48 Ibuprofen 400 Mg Tablet PO 09/08/23 10:47 Q6H PRN Pain Magnesium Hydroxide 30 ml 09/08/22 10:48 Magnesium Hydroxide Susp 30 Ml Udc PO 09/08/23 10:47 Q6H PRN Constipation Olanzapine 5 mg 09/08/22 10:48 Olanzapine 10 Mg Vial *Nf* IM 09/08/23 10:47 Q6H PRN Agitation Olanzapine 5 mg 09/08/22 10:48 09/08/22 13:26 Olanzapine 5 Mg Tablet PO 09/08/23 10:47 5 mg Q6H PRN Administration Agitation Sterile Water 2.1 ml 09/08/22 10:48 Water For Injection,Sterile 10 Ml Vial INJECTION 09/08/23 10:47 PRN PRN To dilute OLANZapine (ZyPREXA) Trazodone HCl 50 mg 09/08/22 10:48 09/08/22 21:54 Trazodone 50 Mg Tablet PO 09/08/23 10:47 50 mg QHS PRN Administration Insomnia A&P - Hospitalist Assessment/Plan (1) Abdominal pain: (2) Depression: (3) Anxiety: Plan *Abdominal pain *Dark stool/diarrhea Denies any abdominal pain, diarrhea, nausea vomiting today, advised to follow- upwith outpatient gastroenterology for possible diagnosis of IBS upon discharge. ?Hemodynamically stable, afebrile ?Lipase within normal limits, urinalysis noninfectious ?Stool for guaiac pending ?Abdominal CT with no acute findings ?Pain management as needed Depression/anxiety Plan of care per psychiatric team Documented By: Kaley Herman APRN 09/09/22 4404 Signed By: <Electronically signed by SIXTO Herman> 09/09/22 173 [facility] Work Phone: 1(529) 609-312810-22-2022 Progress note Author [facility] September 09, 2022 12:33pm Note Date/Time September 09, 2022 1 2:33pm [facility] [address] [place], [place] [id number] Psychiatry Progress Note Signed Patient: Magnus García MR#: [id number] : 1975 Acct:[id number] Age/Sex: 47 / M Adm Date: 2 Loc: 1S Room: [address] [place] [address] Type : ADM IN Attending Dr: Red Cameron MD Copies to: ~ Date of Service: 09/09/2022 Subjective Subjective Narrative: Mr. García reported that he is feeling better. He reported that he got some sleep yesterday. He stated that his depression anxiety has improved. He does report being on Cymbalta and Neurontin before and found that the Neurontin was helpful. Mental Status Exam: Appearance: grossly normal Mental Status: mental status grossly normal Mood: Improving mood Affect: Improving affect Speech and Movement: speech and movement normal and speech clear Attitude: cooperative Thought Process: normal Thought Content: Denied hallucinations, no homicidality, improving suicidality Insight: fair Judgment: fair Exam Physical Exam Vital Signs: Temp Pulse Resp BP Pulse Ox O2 Del Method 97.5 F L 91 H 18 123/90 95 Room Air 09/09/22 07:30 09/09/22 07:30 09/09/22 07:30 09/09/22 07:30 09/09/22 07:30 09/09/22 07:30 Objective Labs Labs: Abnormal Labs 09/08/22 09/08/22 11:30 16:35 Triglycerides 191 H Cholesterol 122 L 25-OH Vitamin D Total 9.6 L Urine Ketones Trace H Assessment/Plan Assessment/Plan (1) Depression: Code(s): F32.A - Depression, unspecified Status: Acute (2) Anxiety: Code(s): F41.9 - Anxiety disorder, unspecified Status: Acute Plan Patient reported depression anxiety has been improving May consider Neurontin to help with anxiety moving forward Appreciate hospitalist input for abdominal pain Continue to monitor mental status Encourage group participation and medication compliance Risk benefits alternatives explained Documented By: Red Cameron MD 09/09/22 1231 Signed By: <Electronically signed by Red Cameron MD> 09/09/22 1235 [facility] Work Phone: 1(928) 811-793510-21-2022 History and physical note Author [facility] September 08, 2022 2:11pm Note Date/Time September 08, 2022 2 :11pm [facility] [address] [place] [address] Psychiatry H&P Signed Patient: Magnus García MR#: [id number] : 1975 Acct:[id number] Age/Sex: 47 / M Adm Date: 2 Loc: Room: [address] [place] [address] Type: ADM IN Attending Dr: Red Cameron MD Copies to: MD Gala Pierce MD~ Date of Service: 09/08/2022 HPI History of Present Illness History of present illness: Mr. García is a 47 year old male who presented due to concern for depression and suicidal ideation. Upon assessment, patient reported that he has been experiencing depression and suicidal ideation. He reported that he had a recent bad reaction to Lyrica 2 weeks ago and felt that the medication was increasing his anxiety and making himvery weak. He reported that he stopped Lyrica roughly 2 weeks ago and the symptoms persisted. He reported no prior major issues with anxiety or depression. He reported that he has been having a lot of lower quadrant stomachpain and he has not been eating. He reported a lot of nausea and his pain has affected his sleep. He stated that he had suicidal thoughts yesterday but feelsrelieved when he was hospitalized. He denied any hallucinations and denied any symptoms of star. Past psych history: Recently started seeing a therapist Past hospitalizations: Denies Past suicide attempts: Denies Family psych history: Reported family history of bipolar disorder Previous medications: Lyrica Alcohol and drug use: Reported medical marijuana Living: With family Employment: Unemployed Review of symptoms: Constitutional: Denies chills and Denies fever(s) Eyes: Denies change in vision ENT: Denies abnormal hearing Cardiovascular: Denies chest pain Respiratory: Denies chest congestion and Denies cough Gastrointestinal: Denies change in bowel habits Genitourinary: Denies dysuria Musculoskeletal: Denies atrophy and Denies myalgias Integumentary/Breasts: Denies dry skin Neurologic: Denies abnormal gait and Denies abnormal movements Psychiatric: Reports depression and suicidal ideation Physical exam: Const: cooperative Nutritional Appearance: average body habitus Orientation: alert, awake and oriented x3 HEENT: Head normal to inspection, hearing grossly normal bilaterally, external nose normal, face symmetric Eyes: appearance normal, both eyes and all related structures, sclerae normal Neck: normal visual inspection and full ROM Resp: normal respiratory effort, able to speak in complete sentences and symmetric chest movement Cardio: regular rate GI: normal to inspection and non-distended : deferred Skin: no rashes or lesions noted Neuro: CNII: Visual [place] intact, CNIII,IV,: EOM intact, no nystagmus. Pupilsequal, round, reactive to light and accommodation, CNV: Sensation intact to light touch, CNVII: Raises eyebrows, smile/frown, puff out cheeks symmetrically, CNVIII: Hearing intact bilaterally, CNIX,X: Voice normal, soft palate elevation normal, symmetrical, CNXI: Shoulder shrug strong, equal bilaterally, CNXII: Tongue protrusion midline, movement symmetrical. Extrem: normal to inspection and full ROM Mental Status Exam: Appearance: grossly normal Mental Status: mental status grossly normal Mood: dysthymic mood Affect: dysphoric affect Speech and Movement: speech and movement normal and speech clear Attitude: cooperative Thought Process: normal Thought Content: Denied hallucinations, no homicidality, reported suicidality Insight: fair Judgment: fair PMFSH Vaccinated for COVID-19?: No Medical History (Updated 09/08/22 @ 14:11 by Red Cameron MD) Arthritis Asthma Chronic bronchitis COPD (chronic obstructive pulmonary disease) Eccrine porocarcinoma of skin Right forehead, removed Fatty liver Former smoker GERD (gastroesophageal reflux disease) Migraine Radiculopathy Sleep apnea Surgical History History of esophagogastroduodenoscopy (EGD) x7 d/t dysphagia Family History Sister Radiculopathy Mother Seizure Knee joint replacement status Esophageal stricture Father Heart failure Diabetes Brother Non-Hodgkin lymphoma Radiculopathy Social History Smoking Status: Former smoker Tobacco Type: cigarettes Substance Use Type: Marijuana Substance Abuse Comment: Has a medical marijuana card. Meds Medications and Allergies Allergies Penicillins Allergy (Verified 02/21/21 08:50) Hives Sulfa (Sulfonamide Antibiotics) Allergy (Verified 02/21/21 08:50) Vomiting Home Medications fluticasone propionate 50 mcg/actuation nasal spray,suspension 1 spray intranasal DAILY allergy symptoms 01/10/21 [History Confirmed 02/11/21] cyclobenzaprine 10 mg tablet 10 mg PO TID PRN back spasms #50 tabs 02/22/21 [Rx Confirmed 09/08/22] oxycodone 5 mg capsule 5 - 10 mg PO Q6H PRN pain 8 days #60 caps 02/22/21 [Rx] diphenhydramine HCl 25 mg tablet (Banophen) 25 mg PO QID PRN Itching 09/08/22 [History Confirmed 09/08/22] gabapentin 600 mg tablet 600 mg PO TID 09/08/22 [History Confirmed 09/08/22] lorazepam 1 mg tablet 1 mg PO BID 09/08/22 [History Confirmed 09/08/22] tamsulosin 0.4 mg capsule 0.4 mg PO DAILY 09/08/22 [History Confirmed 09/08/22] Exam Physical Exam Vital Signs: Temp Pulse Resp Pulse Ox O2 Del Method 97.4 F L 85 16 97 Room Air 09/08/22 10:55 09/08/22 10:55 09/08/22 10:55 09/08/22 10:55 09/08/22 10:55 Assessment/Plan (1) Depression: Code(s): F32.A - Depression, unspecified Status: Acute (2) Anxiety: Code(s): F41.9 - Anxiety disorder, unspecified Status: Acute Plan Patient presenting due to concern for depression and suicidal ideation. He has also been experiencing anxiety We will consult hospitalist due to lower quadrant abdominal pain Will consider starting Cymbalta to help with depression and anxiety Continue to monitor mental status Encourage group participation and medication compliance Risk benefits alternatives explained Documented By: Red Cameron MD 09/08/22 1409 Signed By: <Electronically signed by Red Cameron MD> 09/08/22 1411 [facility] Work Phone: [phone] NoteCONSULTATION CONSULTATION DATE: 09/05/2022 CHIEF COMPLAINT: Cervical pain, bilateral shoulder pain. HISTORY OF PRESENT ILLNESS: This is a 47-year-old gentleman who was referred to us by Dr. Joseph. The patient has chronic pain in his cervical region. The patient reports the pain as being a 6-7/10; a burning, aching sensation. With the change in weather, it has been aggravated and increased his pain. Any activity such as twisting, pushing, sitting too long aggravates the patient's pain. Doing housework, looking up into the cupboards aggravates the pain. The patient also has low back pain; however, this will be addressed on a later date, where the patient has difficulty in bending and climbing up stairs. ADLs aggravate the patient's pain as does cold/damp weather. Heat mitigates the patient's pain. The patient had an untoward reaction with Lyrica and started having panic attacks. He could not sleep. The patient was discontinued. The patient had been, in the past, under the care of Dr. Jane. The patient currently was given lorazepam 1 mg b.i.d., has tried gabapentin without help. In the remote past, the patient had undergone an anterior cervical fusion at the level of C5-6. The patient's PAST MEDICAL HISTORY / SURGICAL HISTORY / REVIEW OF SYSTEMS are noted on the chart, along with the MEDICATION LIST / ALLERGIES and RADIOLOGICAL IMAGES, including the MRI which was reviewed in office today. PHYSICAL EXAM: Upon physical examination, this is a pleasant, cooperative gentleman, who exhibits a significant pain behavior. VITAL SIGNS: Elevated at 151/90 with a heart rate of 109. At a height of 5'11 , the patient weighs 122 kg. FOCUSED EVALUATION: The patient is guarded with regards to his cervical spine. Rotational aspect - The patient has approximately 30 degrees rotation on to either side. Left hand side is more problematic than the right hand side. In extension, the patient is also limited. He states this effects his driving ability. Cervical jump response is noted. Extension, compression, direct palpation along the posterior elements aggravate the patient's pain concordant with facet arthropathy, cervical spondylosis. Cervical paravertebral spasming is present, left hand side greater than right hand side. EXTREMITIES: The patient has spasming along the splenius cervicis muscle and trapezius bilaterally; however, not significant. The patient also discusses multiple joint pain. 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 Motor is intact in the upper extremity at 4+/5 bilaterally. IMPRESSION: Current working diagnosis on the patient is cervicalgia, cervical spondylosis, cervical paravertebral spasm, status post remote cervical fusion C5-C6. PLAN: The patient is to add magnesium glycinate and a vitamin regimen has been suggested to the patient. Heat rub to the cervical spine. We will discontinue the Mobic. Add diclofenac 100 mg b.i.d. along with Pepto-Bismol. The patient will be scheduled for a cervical medial branch block under fluoroscopy at the level of C3-4 and C5-6. The patient understands and would like to proceed. 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 The patient has inconsistencies in symptoms he also has nerve damage to the C6 nerve root which was seen on the EMG, which I independently reviewed and discussed with the patient. He does have a carpal tunnel syndrome on the right, it is bothering him a little more than usual he uses a brace and does very well. At this point I do not think he needs a decompression but when the brace stops helping I think it be very reasonable to proceed with a carpal tunnel decompression. He will have limitations and not all symptoms will get better the patient fully understands and agrees with what we have discussed and will let me know in the future when that time comes. Oct, Carpal tunnel syndrome, right (ICD-10 - G56.01) [facility] Other 10-12-2021 Evaluation note* Encounter Date Diagnosis Assessment Notes Treatment Notes Treatment Clinical Notes Aug, Cervical disc disorder at C6-C7 level with radiculopathy (ICD-10 - M50.123) I have reviewed a plain x-ray of the patient's neck and the report independently compared to previous, he appears to have reasonable healing. He is complaining of no radicular component which he had previously. He still has some numbness in his hand and arm which I am not convinced will change. He only has neck pain which Has gotten better with gabapentin of all things. He continues to see pain management. From a surgical point of view I do not believe there are any further surgeries needed; he does have a new MRI which he will obtain and allow me to review at his next visit. Aug, Cervical disc disorder at C5-C6 level with radiculopathy (ICD-10 - M50.122) Aug, Arthropathy of right shoulder (ICD-10 - M19.011) This patient has pain with passive range of motion of the right shoulder; he is having surgery on his right shoulder and I believe this causes a great deal of problems including some of his neck pain. Aug, Carpal tunnel syndrome, right (ICD-10 - G56.01) This patient has an obvious carpal tunnel bilateral. I think it is causing him a fair amount of problems. I have offered an EMG, he will get that done and then follow-up with us in the office. Aug, Other I spent a total of 30 minutes face to face with this patient discussing seperate identifiabale issues with seperate treatment plans [facility] Other evaluation note* Diagnosis Onset Date Resolution Status Abdominal pain acute Anxiety acute Depression acute [facility] Work Phone: Evaluation noteNo assessment information available [facility] Work Phone: Evaluation noteNo InformationNortDepartment of [facility] Other History and physical note Author Feliciano [facility] December 11, 2022 9:06am Note Date/Time December 11, 2022 9 :06am [facility] [address] [place] [address] Gastroenterology H&P Signed Patient: Magnus García MR#: [id number] : 1975 Acct:[id number] Age/Sex: 47 / M Adm Date: 3 Loc: Room: Type: [facility] Attending Dr: Feliciano Hodge MD Copies to: MD Charlie Patrick MD~ Date of Service: 12/11/2022 HISTORY & PHYSICAL: Patient's history with special attention to the cardiovascular, pulmonary systems and the current problem was reviewed with the patient immediately prior to the procedure. Present medications and doses reviewed in the EMR. Allergies and pertinent laboratory tests were also reviewedat this time in the EMR. The physical examination, as below, was then performed. Indication, assessment and HPI: 47-year-old male presents for EGD and colonoscopy to evaluate history of GERD, rectal bleeding Family history of GI malignancy? No PHYSICAL EXAMINATION Mouth and Pharynx : Moist mucus membranes, normal dentition Cardiac: Regular rate, regular rhythm Pulmonary: Clear to auscultation bilaterally, no wheezing Neurological: Alert and oriented x3, no focal deficits noted Abdomen: Abdomen soft, non-tender REVIEW OF SYSTEMS Constitutional: Denies malaise, fevers Cardiovascular: Denies chest pain, palpitations Respiratory: Denies shortness of breath, wheezing Gastrointestinal: Per HPI Genitourinary: Denies dysuria, polyuria Musculoskeletal: Denies joint swelling, joint stiffness Neurological: Denies numbness, tingling Integumentary: Denies rashes, skin lesions Endocrine: Denies fatigue, weight loss Written informed consent obtained from the patient. Risks (including but not limited to perforation, infection, bloating, bleeding, need for emergent surgeryand loss of life), benefits and alternatives explained and questions answered. The patient verbalized understanding. Based on history patient is an appropriate candidate for the procedure. Feliciano Hodge MD Documented By: Feliciano Hodge MD 12/11/22904 Signed By: <Electronically signed by Feliciano Hodge MD> 12/11/22 09 [facility] Work Phone: History general Narrative - Reported* Type Description Date Medical History Asthma, unspecified asthma severity, unspecified whether complicated, unspecified whether persistent Medical History Dysphagia, unspecified type Medical History Eccrine porocarcinoma of skin Surgical History EGD Surgical History skin cancer excision Hospitalization History see above [facility] Other Hospital Discharge instructions Additional Instructions Regular diet. No activity restrictions.[facility] Work Phone: Hospital Discharge instructions Additional Instructions DISCHARGE INSTRUCTIONS FOR UPPER ENDOSCOPY WHAT TO EXPECT: - You may feel full, gassy or cramping after your procedure. In some cases, this may be from a few hours to a day. Walking may help relieve the discomfort. - Your throat may feel sore today from the scope that the doctor passed through your throat to visualize your stomach. Take a throat lozenge or suck on ice to ease the discomfort. - You should begin to recover from anesthesia within 1 hour of the procedure, however may feel groggy for the next 24 hours. DO's AND DON'Ts: - Call your doctor right away if you have a hard abdomen, severe pain, vomiting or if you cough up large amounts of blood. - Call your doctor if you develop any rashes, hives or difficulty breathing. - If you take 81 mg aspirin for your heart it is safe to resume this medication. - If you take other blood thinner medications your doctor will instruct you when these can safely be resumed. - Do NOT drive for 24 hours. - Do NOT operate machinery such as power tools, lawn mowers, snow blowers, sewing machines, etc. for 24 hours. - Avoid alcoholic beverages and drugs for allergies, nerves, or sleep. - Do NOT stay alone. Do NOT leave your child unattended. - Do NOT make important personal or business decisions or sign any legal documents. - Eat solid foods and drink liquids in smaller amounts than usual until normal appetite returns. If you should experience an upset stomach, liquids high in sugar content (soda, Дмитрий-Aid, non-acid juices) are recommended. - Do NOT smoke. - Do take it easy today. You need not stay in bed, but avoid strenuous activities such as jogging or working out. DISCHARGE INSTRUCTIONS FOR COLONOSCOPY WHAT TO EXPECT: - You may feel full, gassy or cramping after your procedure. In some cases, this may be from a few hours to a day. Walking may help relieve the discomfort. - You should begin to recover from anesthesia within 1 hour of the procedure, however may feel groggy for the next 24 hours. DO's AND DON'Ts: - Call your doctor right away if you have a hard abdomen, sever pain, are passing lots of bright red blood or clots. - Call your doctor if you develop any rashes, hives or difficulty breathing. - Let your doctor know if you have not had a bowel movement by 3 days after your procedure. - If you take 81 mg aspirin for your heart it is safe to resume this medication. - If you take other blood thinner medications your doctor will instruct you when these can safely be resumed. - Do NOT drive for 24 hours. - Do NOT operate machinery such as power tools, lawn mowers, snow blowers, sewing machines, etc. for 24 hours. - Avoid alcoholic beverages and drugs for allergies, nerves, or sleep. - Do NOT stay alone. Do NOT leave your child unattended. - Do NOT make important personal or business decisions or sign any legal documents. - Eat solid foods and drink liquids in smaller amounts than usual until normal appetite returns. If you should experience an upset stomach, liquids high in sugar content (soda, Дмитрий-Aid, non-acid juices) are recommended. - You can resume normal activities tomorrow. FOLLOW UP & RECOMMENDATIONS: -Dr. Hodge's office will schedule a follow-up appointment for you -Start an ybay-yph-jakjaxa acid medication such as Prilosec or Nexium, once daily -Continue fiber supplementation -Notify the doctor if you have any problems. -Repeat colonoscopy in 10 years. -Follow up with PCP. - Office number [phone].[facility] Work Phone: InstructionsNot on filedocumented in this encounter frintit SystemInstructionsNot on filedocumented in this encounter frintit SystemReason for visit NarrativePATIENT HERE AT THE REQUEST OF DR. JOSEPH FOR EVALUATION & TREATMENT OF IBS W/BOTH CONSTIPATION AND DIARRHEA [facility] Other Advance Directives No Advanced Directives Records Found Advance Directive Response Recorded Date/ Time Advance Directives No October 1:34pm Advance Directive Response Recorded Date/ Time Advance Directives No October 2:34pm Chief Complaint and Reason for Visit Chief Complaint Radiculopathy Chief Complaint Radiculopathy Radiculopathy Radiculopathy Radiculopathy Chief Complaint MDD Reason for Visit Abdominal pain Anxiety Depression Chief Complaint Constipation, Rectal Bleeding Assessments No Assessments Information AvailableNo Assessments Information Available Family History No Family History Records Found Relationship Condition Age at Onset Recorded Date/T sofia sister Radiculopathy Unknown Not Specified Status post knee replacement Unknown Seizure Unknown Stricture of esophagus Unknown father Heart failure Unknown brother Non-Hodgkin's lymphoma Unknown Radiculopathy Unknown Relationship Condition Age at Onset Recorded Date/T sofia sister Radiculopathy Unknown Not Specified Seizure Unknown Status post knee replacement Unknown Stricture of esophagus Unknown father Heart failure Unknown Diabetes mellitus Unknown brother Non-Hodgkin's lymphoma Unknown Radiculopathy Unknown Relationship Condition Age at Onset Recorded Date/T sofia sister Radiculopathy Unknown Fibromyalgia Unknown Not Specified Seizure Unknown Status post knee replacement Unknown Stricture of esophagus Unknown father Diabetes mellitus Unknown Heart failure Unknown brother Non-Hodgkin's lymphoma Unknown Radiculopathy Unknown Reason for Referral Reason *FU 09/13 Evaluate EMG BUE Diagnosis 1 Carpal tunnel syndro me, right (G56.01) Referral Organization [facility] Referring Provider First Name Cesario Referring Provider Last Name Pili Referring Provider Specialty Neurologica l Surgery Referred Organization [facility] Referred Provider Jr Champagne Referred Address [address] [place] [place], [place],[address] Referred Provider Specialty Neurology Referral Priority Routine [facility] 10[facility]52[facility]46 AM >Received today and waiting for office notes to be locked [facility] 09/06/2021 01:56:58 PM >Referral was fax Summary Purpose Additional Source Comments REASON FOR VISIT (unrecogniz ed section and content) 6mo PO w Xray S/P ACDF and D r HoganEMG Results Carpal Tunnel3-4 month follow up appt3 MONTH PROCEDURE FOLLOW UP (unrecognized sect ion and content) No Status Records FoundNo Status Records FoundNo Status Records FoundNo Status Records FoundNo Status Records Found INFORMATION SOURCE (unrecogn ized section and content) DATE CREATED AUTHOR 07/16/2022 [facility] DATE CREATED AUTHOR AUTHOR'S ORGANIZ ATION 12/18/2022 [facility] DATE CREATED AUTHOR AUTHOR'S ORGANIZ ATION 03/30/2023 [facility] DATE CREATED AUTHOR AUTHOR'S ORGANIZ ATION 11/05/2023 [facility] EPIC DATE CREATED AUTHOR AUTHOR'S ORGANIZ ATION 12/02/2023 [facility] Care Teams (unrecognized sec tion and content) Team Status: Inactive Member Role Status Dates Gala Joseph MD Primary Care Provider Active Red Cameron MD Admit Provider, Attending Provider Active Alysia Wiley RN Other Provider Active Cheryl Connor RN Other Provider Active Paola Michelle , RN Other Provider Active Laura Floyd , RN Other Provider Active Nahed Peguero , RN Other Provider Active Ellen Gaitan , KAREN Other Provider Active Maik Hopkins MD Other Provider Active Donnie Ramos MD Other Provider Active Ana Ochoa , GRAIN DRIER Other Provider Active Katie Quintanilla , DO Other Provider Active London Smith MD Other Provider Active Ed Powell , DO Other Provider Active Benito Farley MD Other Provider Active Evli Andres MD Other Provider Active Pilar Resendiz , ANP-BC Other Provider Active David Penn MD Other Provider Active Constantino Jacobs MD Other Provider Active Lucia Yañez MD Other Provider Active Kyree Lawrence MD Other Provider Active Flex Pruitt , DO Other Provider Active Marty Hendricks MD Other Provider Active Mauro Fernandez MD Other Provider Active Eliezer Pritchard MD Other Provider Active Sona Moore , JAILKEEPER-C Other Provider Active Conor Jones MD Other Provider Active Christophe Martinez MD Other Provider Active Katie Sauceda MD Other Provider Active Alexander Clancy MD Other Provider Active Stephanie Medina , DO Other Provider Active Rashmi Wright MD Other Provider Active Husam Marcial , DO Other Provider Active Tank Sarah , DO Other Provider Active Kalye Herman , GRAIN DRIER Other Provider Active Pedrito Ignacio , DO Other Provider Active Cheo Willoughby MD Other Provider Active Jennifer Miller , KAREN Other Provider Active Team Status: Active Member Role Status Dates Gala Joseph MD Primary Care Provider Active Team Status: Inactive Member Role Status Dates Feliciano Hodge MD Attending Provider Active Charlie Rea MD Primary Care Provider Active Team Status: Active Member Role Status Dates Charlie Rea MD Primary Care Provider Active Legal Arbitrator Relationship Specialty Start Date End Date Charlie Rea MD [address] [facility], [address] [place] [address] PCP - General Internal Medicine 01/04/23 Legal Arbitrator Relationship Specialty Start Date End Date Charlie Rea MD NPI: [id number] [place] [address], [address] [place] [id number] PCP - General Internal Medicine 01/04/23 Goals (unrecognized section and content) Goals may be documented in a n alternate section FOR RECORDS PERTAINING TO PATIENTS WHO ARE OR HAVE BEEN ENROLLED IN A CHEMICAL DEPENDENCY/SUBSTANCEABUSE PROGRAM, SOME INFORMATION MAY BE OMITTED. This clinical summary was aggregated from multiple sources. Caution should be exercised in using it in the provision of clinical care. This summary normalizes information from multiple sources, and as a consequence, information in this document may materially change the coding, format and clinical context of patient data. In addition, data may be omitted in some cases. CLINICAL DECISIONS SHOULD BE BASED ON THE PRIMARY CLINICAL RECORDS. [employer] provides no warranty or guarantee of the accuracy or completeness of information in this document.
== END 2023-12-11 14:00 | disposition home or self-care (01) ==
PROVIDERS: PCP Internal Medicine; Visit Provider Anesthesiology Pain Medicine
DX: M47.817 Spondylosis without myelopathy or radiculopathy, lumbosacral region (principal)
CPT/HCPCS: G0463

== ENCOUNTER 2023-12-11 15:04 | Outpatient (OUT) | payer OTHER, SELFPAY ==
--- OUTSIDE RECORDS SUMMARY | 2023-12-11 15:10 | XMS_ITS | CCD ---
Author Name Unknown Address [address] [place] [address] Organization [facility] Care Team Providers Care Manager Bakery Name Role Phone Cesario Alejandre Attending Provider Gala Joseph Primary Care Provider Cesario Alejandre Unavailable MD Gala Joseph Primary Care Provider MD Red Cameron Admit Provider MD Red Cameron Attending Provider [phone] KAREN Wiley Other Provider Unavailable KAREN Connor Other Provider Unavailable KAREN Michelle Other Provider Unavailable KAREN Floyd Other Provider Unavailable KAREN Peguero Other Provider Unavailable KAREN Gaitan Other Provider Unavailable MD Maik Hopkins Other Provider MD Donnie Ramos Other Provider Dials, MANAGER OF ADMINISTRATION Ana M Other Provider DO Katie Quintanilla Other Provider MD London Smith Other Provider DO Ed Powell Other Provider MD Benito Farley Other Provider MD Elvi Andres Other Provider VIOLA Resendiz-BC Pilar Other Provider MD David Penn Other Provider MD Constantino Jacobs Other Provider MD Lucia Yañez Other Provider MD Kyree Lawrence Other Provider DO Flex Pruitt Other Provider [phone] MD Marty Hendricks Other Provider MD Mauro Fernandez Other Provider MD Eliezer Pritchard Other Provider STONE MooreC Sona Hathaway Other Provider [phone] MD Conor Jones Other Provider MD Christophe [...] Provider MD Charlie Rea Primary Care Provider Gala Joseph Primary Care Unavailable Red Cameron [...] Translations: [Penicillins] Allergy to substance 10-30-20 18 [facility] (8 sources) Sulfonamides (Antibiotic); Translations: [Sulfa (Sulfonamide Antibiotics)] Allergy to substance 01-10-20 21 [facility] (8 sources) Penicillin G; Translations: [PENICILLIN G] Drug Allergy 03-21-20 23 Other (See Comments) [facility] Other (5 sources) Sulf-10 Drug allergy Unknown [facility] Other (6 sources) Diclofenac; Translations: [DICLOFENAC] Drug Allergy 03-21-20 23 Anxiety [facility] (6 sources) pregabalin; Translations: [PREGABALIN] Drug Allergy 03-21-20 panic attacks [facility] Other (1 source) Diclofenac Drug Allergy [facility] (1 source) Penicillin Drug Allergy [facility] (1 source) pregabalin Drug Allergy [facility] (1 source) Sulfonamides (Antibiotic) Drug allergy (disorder) [facility] (3 sources) Diclofenac; Translations: [DICLOFENAC SODIUM] Drug Allergy 09-22-20 [facility] (3 sources) hydrOXYzine; Translations: [HYDROXYZINE] Drug Allergy 03-21-20 Shortness Of Breath [facility] (3 sources) Ibuprofen; Translations: [IBUPROFEN] Drug Allergy 09-22-20 [facility] (3 sources) Latex; Translations: [LATEX] Propensity to adverse reactions to drug 06-22-20 21 Hives [facility] (3 sources) Methocarbamol; Translations: [METHOCARBAMOL] Drug Allergy 09-22-20 [facility] (3 sources) Naproxen; Translations: [NAPROXEN SODIUM] Drug Allergy 09-22-20 [facility] Work Phone: (3 sources) Non-steroidal anti-inflammator y agent; Translations: [NSAIDS (NON-STEROIDAL ANTI-INFLAMMATOR Y DRUG)] Propensity to adverse reactions to drug 03-21-20 Shortness Of Breath [facility] (3 sources) Sulfur; Translations: [SULFUR] Drug Allergy 10-30-20 18 Vomiting [facility] Medications Current Medications Medication Drug Class(es) Dates [...] every six hours as needed for headache voqhmbszbc-qctnlmyiqbwdy-dtls (FIORICET, ESGIC) 50-325-40 mg per tablet Take 1-2 tablets by mouth every 6 (six) hours as needed for headaches. 60 tablet 3 08/29/2022 Active [id number] 200 actuat albuterol 0.09 mg/actuat metered dose [...] before bedtime. 20 tablet 0 10/21/2022 Active [id number] 0.3 ml EPINEPHrine 1 mg/ml auto-injector (2 [...] 11, 2021 10:33am take 1 capsule by [facility] every eight hours Gabapentin 100 MG 1 capsule Orally tid Active hydrocortisone acetate 10 mg/ml / pramoxine hydrochloride 10 mg/ml rectal foam (2 sources) Corticosteroid Start: 10-21-2022 hydrocortisone-pramoxine (PROCTOFOAM-HS) rectal foam Insert 1 applicator into the rectum in the morning and 1 applicator before bedtime. 10 g 0 10/21/2022 Active lactobacillus acidophilus [id number] unt / pectin 100 mg oral tablet [...] as needed Orally Once a day Active mlehlexi-kobo-PZ-calcium &mins (THERAGRAN-M) 9 mg iron-400 mcg tablet (2 sources) fjyfsoxs-pavb-TD -calcium &mins (THERAGRAN-M) 9 mg iron-400 mcg tablet Take 1 tablet by mouth in the morning. 0 Active Multivitamin preparation (1 source) Sta rt: 3 take 1 tablet by mouth once daily Multivitamin Active 1 TAB PO Daily December 11, 2022 12:00am omega 7-mmp-ghv-fish oil (Fish OiL) 300-1,000 mg capsule (2 sources) omega 3-dha-epa- fish oil (Fish OiL) 300-1,000 mg capsule Take by mouth. 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 CURRENT DRUG THERAPY] Onset: 09-13-2022 Episodic Other [...] GALA [place] Date: 2022-09-19 20:25 Normal [facility] Bilirubin Test strip Ql (U)O rdered By: Kaley Herman on 09-08-2022 Bilirubin Ql (U) Negative Negative [facility] CT abdomen pelvis wo conon 1 CT abdomen pelvis wo con [facility] [place] [address] CT Scan Report Signed Patient: Magnus García MR#: [id number] 8 : 1975 Acct:[id number] Age/Sex: 47 / M ADM Date: 09/08/22 Loc: Room: [address] [place] [address] Type: ADM IN Attending Dr: Red Cameron [...] Armstrong Jr., D.O.09/08/2022 4:33 PM Dictation Location: [place] [address] Transcribed By: [facility] 09/08/22 1633 Dictated By: Jace Armstrong Jr, DO 09/08/22 1631 Signed By: 09/08/22 1633 Normal [facility] Cholesterol [Mass/volume] in Serum or PlasmaOrdered By: Red Cameron on 09-08-2022 Cholesterol [Mass/Vol] 122 mg/dL 140-200 [facility] Comment on above: Chol less than 200 m g/dl low riskChol 201-239 mg/dl borderline riskChol 240 mg/dl and greater high risk Cholesterol in LDL Calc [Mas s/Vol]Ordered By: Red Cameron on 09-08-2022 Cholesterol in LDL [Mass/Vol] 50 mg/dL 0-100 [facility] Comment on above: LDL ATP III CLASSIFI CATIONLDL less than 100 mg/dL OptimalLDL 100-129 mg/dL Near or above optimalLDL 130-159 mg/dL Borderline highLDL 160-189 mg/dL HighLDL greater than 189 mg/dL Very high Cholesterol in VLDL Calc [Ma ss/Vol]Ordered By: Red Cameron on 09-08-2022 Cholesterol in VLDL [Mass/Vol] 38 mg/dL [facility] Color Auto (U)Ordered By: Leesa Herman on 09-08-2022 Color (U) Yellow Yellow [facility] Ketones Auto test strip (U) [Mass/Vol]Ordered By: Kaley eHrman on 09-08-2022 Ketones (U) [Mass/Vol] Trace Negative [facility] Laboratory - Chemistry and C hemistry - challengeOrdered By: Kaley Herman on 10-21-2022 Lipase [Catalytic activity/Vol] 47.0 U/L - [facility] Lipaseon 09-08-2022 Lipase [Catalytic activity/Vol] 47.0 U/L Normal 22-51 [facility] Comment on above: Result Comment: PERF ORMED BY: [place] [address] PATHOLOGIST CHANNEL SALES MANAGER RENE ALCANTARA M.D. Performed By: #### L IPASE #### [address] Lipid Panelon 09-08-2022 Cholesterol [Mass/Vol] 122 mg/dL Low 140-200 [facility] Comment on above: Result Comment: Chol less than 200 mg/dl low risk Chol 201-239 mg/dl borderline risk Chol 240 mg/dl and greater high risk Performed By: #### T SH3 wRFLX, [id number], LIPID #### [address] Cholesterol in HDL [Mass/Vol] 34 mg/dL Normal 29-71 [facility] Comment on above: Result Comment: HDL CHOL ATP-III CLASSIFICATION Cardiovascular Risk HDL > or equal to 60 mg/dL LOW HDL < 40 mg/dL HIGH Performed By: #### T SH3 wRFLX, [id number], LIPID #### [facility] [address] [place] [address] Cholesterol.total/Chol esterol in HDL [Mass ratio] 3.6 {ratio} Normal <5.0 [facility] Comment on above: Performed By: #### T SH3 wRFLX, [id number], LIPID #### [facility] [address] [place] [address] LDL Cholesterol,Calculated 50 mg/dL Normal 0-100 [facility] Comment on above: Result Comment: LDL ATP III CLASSIFICATION LDL less than 100 mg/dL Optimal LDL 100-129 mg/dL Near or above optimal LDL 130-159 mg/dL Borderline high LDL 160-189 mg/dL High LDL greater than 189 mg/dL Very high Performed By: #### T SH3 wRFLX, [id number], LIPID #### [facility] [address] Triglyceride w/Reflex 191 mg/dL High 35-149 [facility] Comment on above: Result Comment: TRIG ATP III CLASSIFICATION TRIG less than 150 mg/dL Normal TRIG 150-199 mg/dL Borderline high TRIG 200-500 mg/dL High TRIG greater than 500 mg/dL Very high Standard traceable to the Center for Disease Conrtrol and Prevention (CDC) test method. Performed By: #### T SH3 wRFLX, [id number], LIPID #### [facility] [address] VLDL CHOLESTEROL 38 mg/dL Normal [facility] Comment on above: Performed By: #### T SH3 wRFLX, [id number], LIPID #### [facility] [address] Nitrite Test strip Ql (U)Ord ered By: Kaley Herman on 09-08-2022 Nitrite Ql (U) Negative Negative [facility] No Panel InformationOrdered By: Red Cameron on 09-08-2022 25-Hydroxy Vitamin D Total 9.6 ng/mL 30-100 [facility] Comment on above: VITAMIN D STATUS 25( [place])VITAMIN D RANGE (ng/mL) Deficient <20 Insufficient 20 to <30Sufficient 30 to 100Reference: Ez MF,Petey NC, Suzette VIRK, et al. Evaluation,treatment, and prevention of vitamin D deficiency; an Endocrine Society clinical practice guideline. JCEM. 2010; 96(7):1911-30. Protein Auto test strip (U) [Mass/Vol]Ordered By: Kaley Herman on 09-08-2022 Protein (U) [Mass/Vol] Negative Negative [facility] Serum or plasma high density lipoprotein (HDL) cholesterol measurementOrdered By: Red Cameron on 09-08-2022 Cholesterol in HDL [Mass/Vol] 34 mg/dL - [facility] Comment on above: HDL CHOL ATP-III CLA SSIFICATION Cardiovascular RiskHDL > or equal to 60 mg/dL LOWHDL < 40 mg/dL HIGH Serum or plasma total choles terol/high density lipoprotein (HDL) cholesterol mass ratOrdered By: Red Cameron on 09-08-2022 Cholesterol.total/Chol esterol in HDL [Mass ratio] 3.6 {ratio} <5.0 [facility] Specific gravity Auto test s trip (U) [Rel density]Ordered By: Kaley Herman on 09-08-2022 Specific gravity (U) [Rel density] 1.005 1.001-1.030 [facility] TSH DL <= 0.005 mIU/L QnOrde red By: Red Cameron on 09-08-2022 TSH Qn 1.04 m[IU]/L 0.45-5.33 [facility] Thyroid Stim Hormone w/Rflxo n 09-08-2022 Thyroid Stim Hormone w/Rflx 1.04 u[iU]/mL Normal 0.45-5.33 [facility] Comment on above: Performed By: #### T SH3 wRFLX, [id number], LIPID #### [facility] [address] Triglyceride [Mass/volume] i n Serum or PlasmaOrdered By: Red Cameron on 09-08-2022 Triglyceride [Mass/Vol] 191 mg/dL 35-149 [facility] Comment on above: TRIG ATP III CLASSIF ICATIONTRIG less than 150 mg/dL NormalTRIG 150-199 mg/dL Borderline highTRIG 200-500 mg/dL High TRIG greater than 500 mg/dL Very highStandard traceable to the Center for Disease Conrtrol and Prevention (CDC) test method. Urinalysison 09-08-2022 Appearance (U) Clear Normal Clear [facility] Comment on above: Order Comment: Name Collection Type:: Clean-Voided Midstream Performed By: #### U A #### [facility] [address] [place] [address] [place] Bilirubin,Urine Negative Normal Negative [facility] Comment on above: Order Comment: Name Collection Type:: Clean-Voided Midstream Performed By: #### U A #### [facility] [address] [place] [address] [place] Color (U) Yellow Normal Yellow [facility] Comment on above: Order Comment: Name Collection Type:: Clean-Voided Midstream Performed By: #### U A #### [facility] [address] [place] [address] [place] Glucose Ql (U) Normal Normal Normal [facility] Comment on above: Order Comment: Name Collection Type:: Clean-Voided Midstream Performed By: #### U A #### [facility] [address] [place] [address] Ketones Ql (U) Trace High Negative [facility] Comment on above: Order Comment: Name Collection Type:: Clean-Voided Midstream Performed By: #### U A #### [address] Leukocyte esterase Test strip Ql (U) Negative Normal Negative [facility] Comment on above: Order Comment: Name Collection Type:: Clean-Voided Midstream Performed By: #### U A #### [place] [address] [place] Nitrite,Urine Negative Normal Negative [facility] Comment on above: Order Comment: Name Collection Type:: Clean-Voided Midstream Performed By: #### U A #### [place] [address] [place] Occult Blood,Urine Negative Normal Negative [facility] Comment on above: Order Comment: Name Collection Type:: Clean-Voided Midstream Result Comment: PERF ORMED BY: [place] [address] PATHOLOGIST CHANNEL SALES MANAGER RENE ALCANTARA M.D. Performed By: #### U A #### [facility] [address] [place] [address] [place] pH (U) 6.0 [pH] Normal 5.0-9.0 [facility] Comment on above: Order Comment: Name Collection Type:: Clean-Voided Midstream Performed By: #### U A #### [place] [address] [place] Protein,Urine Negative Normal Negative [facility] Comment on above: Order Comment: Name Collection Type:: Clean-Voided Midstream Performed By: #### U A #### [address] [place] [address] [facility] Specificy [place],Urine 1.005 Normal 1.001-1.030 [facility] Comment on above: Order Comment: Name Collection Type:: Clean-Voided Midstream Performed By: #### U A #### [facility] [address] [place] [id number] [facility] Urobilinogen,Urine Normal Normal Normal [facility] Comment on above: Order Comment: Name Collection Type:: Clean-Voided Midstream Performed By: #### U A #### [facility] [address] [place] [id number] [facility] Urine clarity by refractomet ry automatedOrdered By: Kaley Herman on 09-08-2022 Clarity Refractometry automated (U) Clear Clear [facility] Urine glucose measurement by automated test strip (mass/volume)Ordered By: Kaley Herman on 09-08-2022 Glucose Auto test strip (U) [Mass/Vol] Normal mg/dL Normal [facility] Urine hemoglobin detection b y automated test stripOrdered By: Kaley Herman on 09-08-2022 Hemoglobin Auto test strip Ql (U) Negative Negative [facility] Urine leukocyte esterase det ection by automated test stripOrdered By: Kaley Herman on 09-08-2022 Leukocyte esterase Auto test strip Ql (U) Negative Negative [facility] Urobilinogen Auto test strip (U) [Mass/Vol]Ordered By: Kaley Herman on 09-08-2022 Urobilinogen (U) [Mass/Vol] Normal mg/dL Normal [facility] Vitamin D 25 Hydroxy Totalon 09-08-2022 Vitamin D 25 Hydroxy Total 9.6 ng/mL Low 30-100 [facility] Comment on above: Result Comment: KAYLEE MIN D STATUS 25(OH)VITAMIN D RANGE (ng/mL) Deficient <20 Insufficient 20 to <30 Sufficient 30 to 100 Reference: Ez MF,Petey PATE, Suzette VIRK, et al. Evaluation,treatment, and prevention of vitamin D deficiency; an Endocrine Society clinical practice guideline. JCEM. 2010; 96(7):1911-30. PERFORMED BY: [facility] [address] [place] [id number] PATHOLOGIST CHANNEL SALES MANAGER RENE ALCANTARA M.D. Performed By: #### T SH3 wRFLX, [id number], LIPID #### [facility] [address] [place] [address] [place] pH Auto test strip (U)Ordere d By: Kaley Herman on 09-08-2022 pH (U) 6.0 [pH] 5.0-9.0 [facility] OCC BLD IMMUNO SCREENon 08-19 OCCULT BLOOD Negative Normal NEGATIVE [facility] Comment on above: Performed By: #### O BSCRN #### [facility] [address] [place] [address] Dr. Francesca Mccabe CBC AUTO DIFFon 09-02-2022 BASO # 0.1 103/ul Normal 0.0-0.1 [facility] Comment on above: Performed By: #### C BC #### [facility] [address] [place] [address] Dr. Francesca Mccabe Basophils/100 WBC (Bld) 0.5 % Normal 0.2-2.0 [facility] Comment on above: Performed By: #### C BC #### [facility] [address] [place] [address] Dr. Francesca Mccabe EO # 0.1 103/ul Normal 0.0-0.7 [facility] Comment on above: Performed By: #### C BC #### [facility] [address] [place] [address] Dr. Francesca Mccabe Eosinophils/100 WBC (Bld) 0.5 % Critically low 0.9-7.0 [facility] Comment on above: Performed By: #### C BC #### [facility] [address] [place] [address] Dr. Francesca Mccabe Erythrocyte distribution width (RBC) [Ratio] 13.8 % Normal 11.0-15.0 [facility] Comment on above: Performed By: #### C BC #### [facility] [address] [place] [address] Dr. Francesca Mccabe Hematocrit (Bld) [Volume fraction] 51.0 % Normal 42.0-54.0 [facility] Comment on above: Performed By: #### C BC #### [facility] [address] [place] [address] Dr. Francesca Mccabe Hemoglobin (Bld) [Mass/Vol] 17.3 g/dL Normal 14.0-18.0 [facility] Comment on above: Performed By: #### C BC #### [facility] [address] [place] [address] Dr. Francesca Mccabe IG # 0.17 10e3/ul Critically high 0.00-0.03 [facility] Comment on above: Performed By: #### C BC #### [facility] [address] [place] [address] Dr. Francesca Mccabe IG % 1.5 % Critically high 0.0-0.5 [facility] Comment on above: Performed By: #### C BC #### [facility] [address] [place] [address] Dr. Francesca Mccabe LYMPH # 1.9 103/ul Normal 1.2-3.8 [facility] Comment on above: Performed By: #### C BC #### [facility] [address] [place] [address] Dr. Francesca Mccabe Lymphocytes/100 WBC (Bld) 16.9 % Critically low 20.5-60.0 [facility] Comment on above: Performed By: #### C BC #### [facility] [address] [place] [address] Dr. Francesca Mccabe MANUAL DIFF REQ NO Normal [facility] Comment on above: Performed By: #### C BC #### [facility] [address] [place] [address] Dr. Francesca Mccabe MCH (RBC) [Entitic mass] 28.4 pg Normal 25.9-34.0 [facility] Comment on above: Performed By: #### C BC #### [facility] [address] [place] [address] Dr. Francesca Mccabe MCHC (RBC) [Mass/Vol] 33.9 g/dL Normal 29.9-35.2 [facility] Comment on above: Performed By: #### C BC #### [facility] [address] [place] [address] [address] Francesca Mccabe MCV (RBC) [Entitic vol] 83.7 fL Normal 80.0-94.0 [facility] Comment on above: Performed By: #### C BC #### [facility] [address] [place] [address] [address] Francesca Mccabe MONO # 0.9 103/ul Critically high 0.3-0.8 [facility] Comment on above: Performed By: #### C BC #### [facility] [address] [place] [address] Dr. Francesca Mccabe Monocytes/100 WBC (Bld) 8.2 % Normal 1.7-12.0 [facility] Comment on above: Performed By: #### C BC #### [facility] [address] [place] [address] Dr. Francesca Mccabe NEUT # 8.1 103/ul Critically high 1.4-6.5 [facility] Comment on above: Performed By: #### C BC #### [facility] [address] [place] [address] Dr. Francesca Mccabe Neutrophils/100 WBC (Bld) 72.4 % Normal 43.0-75.0 [facility] Comment on above: Performed By: #### C BC #### [facility] [address] [place] [address] Dr. Francesca Mccabe Platelet mean volume (Bld) [Entitic vol] 11.0 fL Normal 9.5-13.5 [facility] Comment on above: Performed By: #### C BC #### [facility] [address] [place] [address] Dr. Francesca Mccabe PLT 246 103/ul Normal 150-450 [facility] Comment on above: Performed By: #### C BC #### [facility] [address] [place] [address] Dr. Francesca Mccabe RBC 6.09 106/ul Normal 4.70-6.10 [facility] Comment on above: Performed By: #### C BC #### [facility] [address] [place] [address] [address] Francesca Mccabe WBC 11.1 103/ul Critically high 4.0-11.0 [facility] Comment on above: Performed By: #### C BC #### [facility] [address] [place] [address] [address] Francesca Mccabe PROF 14(COMP METB)on 022 Albumin [Mass/Vol] 4.3 g/dL Normal 3.4-5.0 [facility] Comment on above: Performed By: #### C MP #### [facility] [address] [place] [address] Dr. Francesca Mccabe Albumin/Globulin [Mass ratio] 1.2 {ratio} Normal [facility] Comment on above: Performed By: #### C MP #### [facility] [address] [place] [address] Dr. Francesca Mccabe ALP [Catalytic activity/Vol] 73 U/L Normal 46-116 [facility] Comment on above: Performed By: #### C MP #### [facility] [address] [place] [address] [address] Francesca Mccabe ALT [Catalytic activity/Vol] 65 U/L Critically high 16-63 [facility] Comment on above: Performed By: #### C MP #### [facility] [address] [place] [address] [address] Francesca Mccabe Anion gap [Moles/Vol] 14.8 mmol/L Normal [facility] Comment on above: Performed By: #### C MP #### [facility] [address] [place] [address] [address] Francesca Mccabe AST [Catalytic activity/Vol] 34 U/L Normal 15-37 [facility] Comment on above: Performed By: #### C MP #### [facility] [address] [place] [address] [address] Francesca Mccabe Bilirubin [Mass/Vol] 1.7 mg/dL Critically high 0.2-1.0 [facility] Comment on above: Performed By: #### C MP #### [facility] [address] [place] [address] [address] Francesca Mccabe Calcium [Mass/Vol] 9.3 mg/dL Normal 8.5-10.1 [facility] Comment on above: Performed By: #### C MP #### [facility] [address] [place] [address] [address] Francesca Mccabe Chloride [Moles/Vol] 105 mmol/L Normal 98-107 [facility] Comment on above: Performed By: #### C MP #### [facility] [address] [place] [address] [address] Francesca Mccabe CO2 [Moles/Vol] 21.7 mmol/L Normal 21.0-32.0 [facility] Comment on above: Performed By: #### C MP #### [facility] [address] [place] [address] Dr. Francesca Mccabe Creatinine [Mass/Vol] 1.12 mg/dL Normal 0.70-1.30 [facility] Comment on above: Performed By: #### C MP #### [facility] [address] [place] [address] Dr. Francesca Mccabe EGFR-AF CYMRAES >60 Normal >=60 [facility] Comment on above: Performed By: #### C MP #### [facility] [address] [place] [address] Dr. Francesca Mccabe EGFR-NON AF CYMRAES >60 Normal >=60 [facility] Comment on above: Performed By: #### C MP #### [facility] [address] [place] [address] Dr. Francesca Mccabe Globulin (S) [Mass/Vol] 3.6 g/dL Normal [facility] Comment on above: Performed By: #### C MP #### [facility] [address] [place] [address] Dr. Francesca Mccabe Glucose [Mass/Vol] 93 mg/dL Normal 74-106 [facility] Comment on above: Performed By: #### C MP #### [facility] [address] [place] [address] Dr. Francesca Mccabe Potassium [Moles/Vol] 3.5 mmol/L Normal 3.5-5.1 [facility] Comment on above: Performed By: #### C MP #### [facility] [address] [address] [address] Francesca Mccabe Protein [Mass/Vol] 7.9 g/dL Normal 6.4-8.2 [facility] Comment on above: Performed By: #### C MP #### [facility] [address] [address] [address] Francesca Mccabe Sodium [Moles/Vol] 138 mmol/L Normal 136-145 [facility] Comment on above: Performed By: #### C MP #### [facility] [address] [address] [address] Francesca Mccabe Urea nitrogen [Mass/Vol] 9.0 mg/dL Normal 7.0-18.0 [facility] Comment on above: Performed By: #### C MP #### [facility] [address] [address] [address] Francesca Mccabe Urea nitrogen/Creatinine [Mass ratio] 8.0 mg/mg Normal [facility] Comment on above: Performed By: #### C MP #### [facility] [address] Francesca Mccabe DERRICK - TITERon 07-14-2022 DERRICK by HEp-2 CELLS Negative Normal (NEG - NEG) [facility] Comment on above: Performed By: #### E SRCRP, *DERRICK, CCP, RHF #### [facility] [address] [facility], [address] DERRICK TITER 1:40 Normal (<1:40 - 1:40) [facility] Comment on above: Performed By: #### E SRCRP, *DERRICK, CCP, RHF #### [facility] [address] [facility], [address] RF FACTORon 07-14-2022 RF FACTOR <9 Normal (0 - 12) [facility] Comment on above: Result Comment: RF F ACTOR = LESS THAN 9 IU/ML RF FACTOR MIN. DETECTION = 9 IU/ML. Performed By: #### E SRCRP, *DERRICK, CCP, RHF #### [facility] [address] [facility], [address] SED RATE - CRPon 07-14-2022 CRP EXTENDED RANGE 4.96 MG/L High (0.00 - 3.20) [facility] Comment on above: Order Comment: FACIL ITY: [facility] [id number] Performed By: #### E SRCRP, *DERRICK, CCP, RHF #### [facility] [address] [facility], [address] SED RATE WEST. 12 MM/HR Normal (0 - 24) [facility] Comment on above: Order Comment: FACIL ITY: [facility] [id number] Performed By: #### E SRCRP, *DERRICK, CCP, RHF #### [facility] [address] [facility], [address] Automated basophil %on 02-11 Basophils/100 WBC (Bld) 0.7 % [facility] Automated basophil counton 0 02-11-2021 Basophils (Bld) [#/Vol] 0.1 10*3/uL 0.0-0.2 [facility] Automated blood lymphocyte c ount (number/volume)on 02-11-2021 Lymphocytes (Bld) [#/Vol] 2.4 10*3/uL 1.00-4.8 [facility] Automated blood lymphocyte c ount as percentage of total leukocyteson 02-11-2021 Lymphocytes/100 WBC (Bld) 26.7 % [facility] Automated blood monocyte cou nton 02-11-2021 Monocytes (Bld) [#/Vol] 0.8 10*3/uL 0.0-0.8 [facility] Automated blood platelet cou nt (count/volume)on 02-11-2021 Platelets (Bld) [#/Vol] 201 10*3/uL 150-450 [facility] Automated blood platelet frank n volume measurementon 02-11-2021 Platelet mean volume (Bld) [Entitic vol] 8.7 fL 6.6-10.1 [facility] Automated eosinophil %on Eosinophils/100 WBC (Bld) 6.3 % [facility] Automated eosinophil counton 02-11-2021 Eosinophils (Bld) [#/Vol] 0.6 10*3/uL 0.0-0.45 [facility] Automated erythrocyte distri bution width ratioon 02-11-2021 Erythrocyte distribution width (RBC) [Ratio] 14.3 % 12.0-14.8 [facility] Automated erythrocyte mean c orpuscular hemoglobin (mass per erythrocyte)on 02-11-2021 MCH (RBC) [Entitic mass] 29.2 pg 27.5-35.2 [facility] Automated erythrocyte mean c orpuscular hemoglobin concentration measurement (mass/volon 02-11-2021 MCHC (RBC) [Mass/Vol] 34.4 g/dL 32.5-35.6 [facility] Automated erythrocyte mean c orpuscular volumeon 02-11-2021 MCV (RBC) [Entitic vol] 84.8 fL 83.5-101 [facility] Automated monocyte %on 02-11 Monocytes/100 WBC (Bld) 8.8 % [facility] Automated neutrophil %on Neutrophils/100 WBC (Bld) 57.5 % [facility] Blood erythrocytes automated count (number/volume)on 02-11-2021 RBC (Bld) [#/Vol] 5.54 10*6/uL 3.90-5.60 [facility] Blood hemoglobin measurement (mass/volume)on 02-11-2021 Hemoglobin (Bld) [Mass/Vol] 16.2 g/dL 13.0-17.0 [facility] Blood leukocytes automated c ount (number/volume)on 02-11-2021 WBC (Bld) [#/Vol] 9.0 10*3/uL 4.1-10.5 [facility] Blood neutrophil count by au tomated method (number/volume)on 02-11-2021 Neutrophils (Bld) [#/Vol] 5.2 10*3/uL 1.8-7.7 [facility] Estimated glomerular filtrat ion rate (GFR) non- Americanon 02-11-2021 GFR/1.73 sq M predicted among non-blacks MDRD (S/P/Bld) [Vol rate/Area] > 60 mL/Min [facility] Hematocrit [Volume Fraction] of Blood by Automated counton 02-11-2021 Hematocrit (Bld) [Volume fraction] 47.0 % 38.8-50.0 [facility] Otheron 02-11-2021 GFR/1.73 sq M.predicted MDRD (S/P/Bld) [Vol rate/Area] > 60 mL/Min [facility] Comment on above: GFR estimated refere nce range: According to KDOQI guidelines, <60 ml/min/1.73m2 is sufficient to diagnose a patient with chronic kidney disease. Nucleated RBC/100 WBC (Bld) [Ratio] 0.3 % 0-0.5 [facility] Creatinine Clearance (Chem N/A [facility] Serum or plasma calcium fazal urement (mass/volume)on 02-11-2021 Calcium [Mass/Vol] 9.0 mg/dL 8.2-10.2 [facility] Serum or plasma chloride frank surement (moles/volume)on 02-11-2021 Chloride [Moles/Vol] 104 mmol/L 95-114 [facility] Serum or plasma creatinine m easurement with calculation of estimated glomerular filtron 02-11-2021 Creatinine [Mass/Vol] 0.77 mg/dL 0.64-1.27 [facility] Serum or plasma glucose fazal urement (mass/volume)on 02-11-2021 Glucose [Mass/Vol] 89 mg/dL 70-100 [facility] Comment on above: ADA recommended refe rence rangeRandom Glucose Reference Range is dependent on time and content of last meal. Glucose of more than 200 mg/dL in a nonstressed, ambulatory subject supports the diagnosis of Diabetes Mellitus. Serum or plasma potassium me asurement (moles/volume)on 02-11-2021 Potassium [Moles/Vol] 3.8 mmol/L 3.5-5.1 [facility] Serum or plasma sodium measu rement (moles/volume)on 02-11-2021 Sodium [Moles/Vol] 135 mmol/L 136-146 [facility] Serum or plasma total carbon dioxide measurement (moles/volume)on 02-11-2021 CO2 [Moles/Vol] 22.9 mmol/L 22.0-30.0 [facility] Serum or plasma urea nitroge n measurement (mass/volume)on 02-11-2021 Urea nitrogen [Mass/Vol] 11 mg/dL 9 [facility] COVID-19 Positive/Negativeon 01-14-2021 COVID-19 Positive/Negative Positive Negative [facility] Comment on above: Critical valueresult calledat 8 on 01/14/21Testing for SARS-CoV-2 by RT-PCRThis test was developed and its performance characteristics determined by [employer] ([employer] and validated at the [facility]. This test has not been FDA cleared [...] Otheron 01-14-2021 Coronavirus 2019 PCR Interp N/A [facility] Automated basophil %on 01-10 Basophils/100 WBC (Bld) 0.4 % [facility] Automated basophil counton 0 01-10-2021 Basophils (Bld) [#/Vol] 0.0 10*3/uL 0.0-0.2 [facility] Automated blood lymphocyte c ount (number/volume)on 01-10-2021 Lymphocytes (Bld) [#/Vol] 2.2 10*3/uL 1.00-4.8 [facility] Automated blood lymphocyte c ount as percentage of total leukocyteson 01-10-2021 Lymphocytes/100 WBC (Bld) 25.0 % [facility] Automated blood monocyte cou nton 01-10-2021 Monocytes (Bld) [#/Vol] 0.8 10*3/uL 0.0-0.8 [facility] Automated blood platelet cou nt (count/volume)on 01-10-2021 Platelets (Bld) [#/Vol] 226 10*3/uL 150-450 [facility] Automated blood platelet frank n volume measurementon 01-10-2021 Platelet mean volume (Bld) [Entitic vol] 9.4 fL 6.6-10.1 [facility] Automated eosinophil %on Eosinophils/100 WBC (Bld) 5.0 % [facility] Automated eosinophil counton 01-10-2021 Eosinophils (Bld) [#/Vol] 0.4 10*3/uL 0.0-0.45 [facility] Automated erythrocyte distri bution width ratioon 01-10-2021 Erythrocyte distribution width (RBC) [Ratio] 14.5 % 12.0-14.8 [facility] Automated erythrocyte mean c orpuscular hemoglobin (mass per erythrocyte)on 01-10-2021 MCH (RBC) [Entitic mass] 28.9 pg 27.5-35.2 [facility] Automated erythrocyte mean c orpuscular hemoglobin concentration measurement (mass/volon 01-10-2021 MCHC (RBC) [Mass/Vol] 34.3 g/dL 32.5-35.6 [facility] Automated erythrocyte mean c orpuscular volumeon 01-10-2021 MCV (RBC) [Entitic vol] 84.2 fL 83.5-101 [facility] Automated monocyte %on 01-10 Monocytes/100 WBC (Bld) 8.7 % [facility] Automated neutrophil %on Neutrophils/100 WBC (Bld) 60.9 % [facility] Blood erythrocytes automated count (number/volume)on 01-10-2021 RBC (Bld) [#/Vol] 5.59 10*6/uL 3.90-5.60 [facility] Blood hemoglobin measurement (mass/volume)on 01-10-2021 Hemoglobin (Bld) [Mass/Vol] 16.1 g/dL 13.0-17.0 [facility] Blood leukocytes automated c ount (number/volume)on 01-10-2021 WBC (Bld) [#/Vol] 8.6 10*3/uL 4.1-10.5 [facility] Blood neutrophil count by au tomated method (number/volume)on 01-10-2021 Neutrophils (Bld) [#/Vol] 5.3 10*3/uL 1.8-7.7 [facility] Estimated glomerular filtrat ion rate (GFR) non- Americanon 01-10-2021 GFR/1.73 sq M predicted among non-blacks MDRD (S/P/Bld) [Vol rate/Area] mL/min/{1.73_m2} [facility] Hematocrit [Volume Fraction] of Blood by Automated counton 01-10-2021 Hematocrit (Bld) [Volume fraction] 47.0 % 38.8-50.0 [facility] Otheron 01-10-2021 GFR/1.73 sq M.predicted MDRD (S/P/Bld) [Vol rate/Area] mL/min/{1.73_m2} [facility] Comment on above: GFR estimated refere nce range: According to KDOQI guidelines, <60 ml/min/1.73m2 is sufficient to diagnose a patient with chronic kidney disease. Nucleated RBC/100 WBC (Bld) [Ratio] 0.3 % 0-0.5 [facility] Creatinine Clearance (Chem N/A [facility] Serum or plasma calcium fazal urement (mass/volume)on 01-10-2021 Calcium [Mass/Vol] 9.2 mg/dL 8.2-10.2 [facility] Serum or plasma chloride frank surement (moles/volume)on 01-10-2021 Chloride [Moles/Vol] 106 mmol/L 95-114 [facility] Serum or plasma creatinine m easurement with calculation of estimated glomerular filtron 01-10-2021 Creatinine [Mass/Vol] 0.80 mg/dL 0.64-1.27 [facility] Serum or plasma glucose fazal urement (mass/volume)on 01-10-2021 Glucose [Mass/Vol] 99 mg/dL 70-100 [facility] Comment on above: ADA recommended refe rence rangeRandom Glucose Reference Range is dependent on time and content of last meal. Glucose of more than 200 mg/dL in a nonstressed, ambulatory subject supports the diagnosis of Diabetes Mellitus. Serum or plasma potassium me asurement (moles/volume)on 01-10-2021 Potassium [Moles/Vol] 4.0 mmol/L 3.5-5.1 [facility] Serum or plasma sodium measu rement (moles/volume)on 01-10-2021 Sodium [Moles/Vol] 139 mmol/L 136-146 [facility] Serum or plasma total carbon dioxide measurement (moles/volume)on 01-10-2021 CO2 [Moles/Vol] 22.9 mmol/L 22.0-30.0 [facility] Serum or plasma urea nitroge n measurement (mass/volume)on 01-10-2021 Urea nitrogen [Mass/Vol] 10 mg/dL 9-23 [facility] Vital Signs Date Time Vital Sign Value Performing Clinician Facility 03-13-2023 14:00-0400 Body height 182.88 cm [employer] Other [facility] Other 03-13-2023 14:00-0400 Body mass index (BMI) [Ratio] 34.17 kg/m2 [employer] Other [facility] Other 03-13-2023 14:00-0400 Body weight 114.31 kg [employer] Other [facility] Other 03-13-2023 14:00-0400 Diastolic blood pressure 80 mm[Hg] [employer] Other [facility] Other 03-13-2023 14:00-0400 Systolic blood pressure 141 mm[Hg] [employer] Other [facility] [employer] Other 12-11-2022 09:50-0500 Diastolic blood pressure 66 mm[Hg] MD Charlie Rea Work Phone: [facility] 12-11-2022 09:50-0500 Heart rate 63 /min MD Charlie Rea Work Phone: [facility] 12-11-2022 09:50-0500 Respiratory rate 20 /min MD Charlie Rea Work Phone: [facility] 12-11-2022 09:50-0500 SaO2% (BldA) [Mass fraction] 100 % MD Charlie Rea Work Phone: [facility] 12-11-2022 09:50-0500 Systolic blood pressure 113 mm[Hg] MD Charlie Rea Work Phone: [facility] 12-11-2022 08:35-0500 Body height 180.34 cm MD Charlie Rea Work Phone: [facility] 12-11-2022 08:35-0500 Body temperature 99 [degF] MD Charlie Rea Work Phone: [facility] 12-11-2022 08:35-0500 Body weight 114.3 kg MD Charlie Rea Work Phone: [facility] 09-14-2022 15:30-0400 Body height 182.88 cm Feliciano Hodge Other [facility] Other 09-14-2022 15:30-0400 Body mass index (BMI) [Ratio] 36.48 kg/m2 Feliciano Hodge Other [facility] Other 09-14-2022 15:30-0400 Body weight 122.02 kg Feliciano Hodge Other [facility] Other 09-14-2022 15:30-0400 Diastolic blood pressure 79 mm[Hg] Feliciano Syedangelica Other [facility] Other 09-14-2022 15:30-0400 Systolic blood pressure 151 mm[Hg] Feliciano Leungcharli Other [facility] [employer] Other 09-10-2022 07:30-0400 Body temperature 97.5 [degF] MD Gala Joseph Work Phone: [facility] 09-10-2022 07:30-0400 Diastolic blood pressure 98 mm[Hg] MD Gala Joseph Work Phone: [facility] 09-10-2022 07:30-0400 Heart rate 94 /min MD Gala Joseph Work Phone: [facility] 09-10-2022 07:30-0400 SaO2% (BldA) [Mass fraction] 100 % MD Gala Joseph Work Phone: [facility] 09-10-2022 07:30-0400 Systolic blood pressure 152 mm[Hg] MD Gala Joseph Work Phone: [facility] 09-09-2022 20:43-0400 Respiratory rate 16 /min MD Gala Joseph Work Phone: [facility] 09-08-2022 10:55-0400 Body height 180.34 cm MD Gala Joseph Work Phone: [facility] 09-08-2022 10:55-0400 Body weight 120.85 kg MD Gala Joseph Work Phone: [facility] 10-25-2021 14:40-0500 Body height 182.88 cm Cesario Alejandre Other [facility] [employer] Other 10-25-2021 14:40-0500 Body mass index (BMI) [Ratio] 41.9 kg/m2 Cesario Alejandre Other [facility] Other 10-25-2021 14:40-0500 Body weight 140.16 kg Cesario Alejandre Other [facility] Other 08-30-2021 15:40-0400 Body height 182.88 cm Cesario Alejandre Other [facility] Other 08-30-2021 15:40-0400 Body mass index (BMI) [Ratio] 41.9 kg/m2 Cesario Alejandre Other [facility] Other 08-30-2021 15:40-0400 Body weight 140.16 kg Cesario Alejandre Other [facility] Other 08-30-2021 15:40-0400 Diastolic blood pressure 72 mm[Hg] Cesario Alejandre Other [facility] Other 08-30-2021 15:40-0400 Systolic blood pressure 137 mm[Hg] Cesario Alejandre Other [employer] Other 01-17-2021 04:45-0500 BMI (Body Mass Index) 41.2 kg/m2 [facility] 01-17-2021 04:45-0500 Body Temperature 98.4 [degF] [facility] 01-17-2021 04:45-0500 Body weight 134 kg [facility] 01-17-2021 04:45-0500 BP Diastolic 73 mm[Hg] [facility] 01-17-2021 04:45-0500 BP Systolic 119 mm[Hg] [facility] 01-17-2021 04:45-0500 Height 180.34 cm [facility] 01-17-2021 04:45-0500 Pulse (Heart Rate) 88 /min [facility] 01-17-2021 04:45-0500 Pulse Oximetry 98 % [facility] 01-17-2021 04:45-0500 Respiratory Rate 18 /min [facility] Encounters Encounter Date Encounter Type Care Provider Facility Start: 11-29-2023 End: 11-29-2023 ambulatory LISA BOSTON [facility] Start: 11-28-2023 Telephone encounter [facility] Start: 11-23-2023 Chart abstracting Scanning [employer] External [facility] Start: 10-31-2023 End: 11-01-2023 ambulatory [...] 03-13-2023 End: 03-13-2023 ambulatory [employer] Other [facility] Other Start: 03-13-2023 Office outpatient ne w [...] Start: 12-11-2022 End: 12-11-2022 ambulatory Feliciano Hodge Facility:[facility] Start: 12-11-2022 End: 12-11-2022 Admission to same day surgery center MD Charlie Rea Work Phone: [facility] Work Phone: Start: 12-11-2022 End: 12-11-2022 ambulatory MD Charlie Rea Work Phone: [facility] Work Phone: Start: 12-06-2022 End: 12-07-[address] CHARLIE REA Facility:[facility] Start: 11-28-2022 End: 11-28-[address] CHARLIE REA Facility:[facility] Start: 11-02-2022 End: 11-03-[address] CHARLIE REA Facility:[facility] Start: 09-19-2022 End: 09-19-[address] GALA JOSEPH Facility:[facility] Start: 09-14-2022 End: 09-14-2022 ambulatory Feliciano Syedangelica Other [employer] Other Start: 09-14-2022 [facility] visit new patient Feliciano Hodge [facility] Start: 09-11-2022 End: 09-12-[address] GALA JOSEPH Facility:[facility] Start: 09-08-2022 End: 09-10-2022 ambulatory Gala Joseph Facility:[facility] Start: 09-08-2022 End: 09-10-2022 Evaluation and management of inpatient MD Gala Joseph Work Phone: [facility] Start: 09-06-2022 End: 09-06-[address] GALA JOSEPH Facility:[facility] Start: 09-05-2022 End: 09-06-[address] KEVIN ACOSTA . Facility:[facility] Start: 09-02-2022 End: 09-02-[address] PATRICIA VALENZUELA Facility:[facility] Start: 10-25-2021 End: 10-25-2021 ambulatory Cesario Alejandre Other [facility] [employer] Other Start: 10-25-2021 Office outpatient visit 15 minutes Cesario Alejandre [facility] [place] operated by [facility] Start: 08-30-2021 Office outpatient visit 25 minutes Cesario Alejandre [facility] [place] Start: 02-11-2021 End: 02-11-2021 Patient encounter procedure Cesario Alejandre -Pre-Surgical Testing Start: 01-17-2021 End: 01-17-2021 Admission to day surgery Cesario Alejandre -Surgery [facility] Start: 01-14-2021 End: 01-14-2021 Patient encounter procedure [...] #### ESRCRP, *DERRICK, CCP, RH F #### [facility] [address] [place], [address] Start: 01-17-2021 OR Cervical Fusion Anterior (Not Applicable) Cesario Alejandre Plan of Treatment Date Care Activity Detail Author Start: 03-03-2025 DTaP,Tdap and Td Vaccines (3 - Td or Tdap) DTaP,Tdap and Td Vaccines (3 - Td or Tdap) [facility] Start: 05-08-2024 Adult BMI Screening Adult BMI Screen ing [facility] Start: 05-08-2024 Tobacco Screening Tobacco Screening [facility] Start: 11-29-2023 End: 11-29-2023 Patient encounter procedure 11/29/2023 1:30 PM EST Office Visit [facility] [address] [place] [address] Lisa Boston MD [address] [place] [address] [facility] Start: 08-29-2023 Depression Screening Depression Scre ening [facility] Start: 07-20-2023 Influenza vaccination Influenza Vacc ine [facility] Start: 12-11-2022 [facility] Start: 09-10-2022 [facility] Start: 09-08-2022 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 [facility] Start: 09-08-2022 Hospital admission [facility] Start: 1995 Adult BMI Follow Up Plan Adult BMI Follow Up Plan [facility] Patient Education [facility] Work Phone: Patient referral [facility] Work Phone: Immunizations Immunization Date Immunization Notes Care Provider Fa cility 10-25-2022 influenza virus vaccine, unspecified formulation [facility] 03-03-2015 tetanus toxoid, redu emmanuel diphtheria toxoid, and acellular pertussis vaccine, adsorbed [facility] 06-15-2009 tetanus toxoid, redu emmanuel diphtheria toxoid, and acellular pertussis vaccine, adsorbed [facility] Payers Date Payer Category Payer Self-pay [id number] 2020 Medicaid [employer] [id number] 2020-Present [phone] [place] [id number] 1977 Unknown [id number] 1977 Unknown [id number] 1977 Unknown [id number] 1977 Unknown [id number] 1977 Unknown [id number] 1977 Unknown [id number] 1977 Unknown [id number] 1977 Unknown [id number] 1975 Unknown [id number] 2.16.840.1.433140.3.579.2.59 1975 Unknown [id number] 2.16.840.1.574616.3.579.2.59 1975 Unknown [id number] 2.16.840.1.780766.3.579.2.59 1977 Unknown [id number] 2.16.840.1.780798.3.579.2.59 1977 Unknown [id number] 2.16.840.1.044528.3.579.2.593 1977 Unknown [id number] 2.16.840.1.058938.3.579.2.593 1977 Unknown [id number] 2.16.840.1.393338.3.579.2.1259 1977 Unknown [id number] 2.16.840.1.032688.3.579.2.1259 1977 Unknown [id number] 2.16.840.1.925941.3.579.2.125 1977 Unknown [id number] 2.16.840.1.011685.3.579.2.1259 1977 Unknown [id number] 2.16.840.1.376376.3.579.2.125 1977 Unknown [id number] 2.16.840.1.319795.3.579.2.1286 1977 Unknown [id number] 2.16.840.1.363286.3.579.2.1286 1959 Unknown [id number] Unknown [id number] Unknown [employer] [id number] Unknown [id number] 2.16.840.1.044852.3.579.2.531 Unknown [id number] 2.16.840.1.388014.3.579.2.531 Social History Date Type Detail Facility Start: 01-10-2021 End: 09-07-2022 Tobacco smoking status WYIS Ex-smoker (finding) [facility] Start: 1975 Sex Assigned At Male [facility] Start: 08-29-2022 End: 05-08-2023 Sex Assigned At [facility] End: 11-19-2008 History of tobacco use Current smoker [facility] End: 11-19-2008 History of tobacco use Cigarette Smoker [facility] Start: 09-07-2022 Tobacco use and exposure Forme r smokeless tobacco user [facility] Start: 11-23-2023 Alcohol intake Ex-drinker (finding) [facility] Start: 08-29-2022 End: 11-23-2023 Alcohol intake [facility] Do you belong to any clubs or organizations such as tenriism groups, unions, fraternal or athletic groups, or school groups? No [facility] Attends Club or Organization Meetings Not on file [facility] Are you now , , , , never or living with a partner? Living with partner [facility] How often to you hav e a drink containing alcohol? Monthly or less [facility] How many standard dr inks containing alcohol do you have on a typical day? 1 or 2 [facility] How often do you hav e 6 or more drinks on 1 occasion? Less than monthly [facility] How hard is it for y ou to pay for the very basics like food, housing, medical care, and heating Somewhat hard [facility] Do you feel stress - tense, restless, nervous, or anxious, or unable to sleep at night because your mind is troubled all the time - these days [OSQ] Very much [facility] Start: 08-29-2022 Education 21 [employer] Start: 1975 Sex Assigned At Not on file [facility] Medical Equipment Procedure Code Equipment Code Equipment Origin al Text Equipment Identifier Dates Spinal fixation plate, non-bioabsorbable ()[id number] FDA Start: 02-21-2021 Spinal fixation plate, non-bioabsorbable ()[id number] FDA Start: 02-21-2021 Intervertebral-b mandy internal spinal fixation system ()[id number] FDA Start: 02-21-2021 Intervertebral-b mandy internal spinal fixation system ()[id number] [id number] FDA Start: 02-21-2021 Goals Date Patient Goal Desired Activity /State Functional Status Date Assessment Result Facility 09-10-2022 Functional status Patient at Baseline [facility] Work Phone: Mental Status Date Assessment Result Facility 09-10-2022 Cognitive function Cognitive Sta tus Patient at Baseline [facility] Work Phone: Clinical Notes 08-30-2021 [...] to their appointment. documented in this encounter [employer] 11-28-2023 Telephone encount er Note Left message for patient to remind them to bring their most current medication list with them to their appointment. [facility] Evaluation note Encounter Date Diagnosis Assessment [...] MiraLAX as it is a nonstimulating laxative. [employer] Other 03-30-2023 NoteCONSULTATION CONSULTATION DATE: 02/15/2023 TO: [...] His BLANCA on today's visit is 42.[facility] 01-25-2023 NoteCONSULTATION CONSULTATION DATE: 01/25/2023 [...] followed up in the clinic post procedure.[facility] 12-11-2022 Procedure [facility]01-18-2023 Note CONSULTATION CONSULTATION DATE: 12/06/2022 HISTORY OF [...] followed up in the clinic post procedure.[facility] [id number] NoteCONSULTATION CONSULTATION DATE: 11/02/2022 HISTORY OF PRESENT [...] be followed up in the office thereafter.[facility] [id number] Evaluation note* Encounter Date Diagnosis Assessment Notes Treatment Notes Treatment Clinical Notes Aug, Alternating constipation and diarrhea (ICD-10 - R19.8) Aug, Rectal bleeding (ICD-10 - K62.5) [employer] Other 10-23-2022 Discharge summary Author Red Cameron [facility] September 10, 2022 11:06am Note Date/Time September 10, 2022 1 1:04am [facility] [address] [place] [address] Discharge Summary Signed Patient: Magnus García MR#: [id number] : 1975 Acct:[id number] Age/Sex: 47 / M Adm Date: 2 Loc: 1S Room: [address] [place] [address]: Red Cameron MD Copies to: [...] 47 year [facility] and [facility] ideation. Upon assessment, [...] Instructions: Depression, Adult (DC), Anxiety, Adult (DC), [facility] DC Instructions Prescriptions: New gabapentin [...] tablet 600 mg PO TID Follow Up: [facility] [Outside] [facility] [Outside] - 09/11/22 9:15 am (You have a follow-up telehealth appointment with [facility] in [place] on Sunday, September 11, 2022 at 9:15am. A telephonic nurse case manager will call you at the phone number you have provided. Additional appointments will be scheduled at this time.) Documented By: Red Cameron MD 09/10/221101 Signed By: <Electronically signed by Red Cameron MD> 09/10/221105 [facility] Work Phone: 1(134) 915-695210-22-2022 Progress note Author Pedrito Ignacio [facility] September 10, 2022 3:22pm Note Date/Time September 09, 2022 4 :47pm [facility] [address] [place] [address] Hospitalist Progress Note Signed with Addenda Patient: Magnus García MR#: [id number] : 1975 Acct:[id number] Age/Sex: 47 / M Adm Date: 2 Loc: Room: [address] [place] [address] Type: ADM IN Attending Dr: Red Cameron MD Copies to: ~ ADDENDUM2 I personally saw this patient on the day of the encounter, reviewed the history,performed the afrooq elements of the exam, formulated the plan [...] Propionate 1 spray 09/10/22 09:00 Fluticasone Propionate [place]/16 Gm Bottle INTRANASAL 09/10/23 08:59 DAILY BEV [...] team Documented By: Kaley Herman APRN 09/09/22 3304 Signed By: <Electronically signed by SIXTO Herman> 09/09/22 173 [facility] Work Phone: 1(185) 567-669910-22-2022 Progress note Author Red Cameron [facility] September 09, 2022 12:33pm Note Date/Time September 09, 2022 1 2:33pm [facility] [address] [place], [place] [id number] Psychiatry Progress Note Signed Patient: Magnus García MR#: [id number] : 1975 Acct:[id number] Age/Sex: 47 / M Adm Date: 2 Loc: 1S Room: [address] [place] [address] Type : ADM IN Attending Dr: Red [...] 1231 Signed By: <Electronically signed by Red aCmeron MD> 09/09/22 1231 [facility] Work Phone: 1(898) 351-846210-21-2022 History and physical note Author Red Cameron [facility] September 08, 2022 2:11pm Note Date/Time September 08, 2022 2 :11pm [facility] [address] [place] [address] Psychiatry H&P Signed Patient: Magnus García MR#: [id number] : 1975 Acct:[id number] Age/Sex: 47 / M Adm Date: 2 Loc: Room: [address] [place] [address] Type: ADM IN Attending Dr: Red Cameron [...] signed by Red Cameron MD> 09/08/22 1411 [facility] Work Phone: 1(501) 197-839310-18-2022 NoteCONSULTATION CONSULTATION DATE: 09/05/2022 CHIEF COMPLAINT: Cervical [...] The patient also discusses multiple joint pain. 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 [...] like to proceed. CC: Gala Joseph M.D.[facility] [id number] Evaluation note* Encounter Date Diagnosis Assessment Notes [...] Carpal tunnel syndrome, right (ICD-10 - G56.01) [employer] Other 10-12-2021 Evaluation note* Encounter Date Diagnosis [...] seperate identifiabale issues with seperate treatment plans [facility] [employer] Other evaluation note* Diagnosis Onset Date Resolution Status Abdominal pain acute Anxiety acute Depression acute [facility] Work Phone: Evaluation noteNo assessment information available [facility] Work Phone: Evaluation noteNo InformationNortSub[facility] [employer] Other History and physical note Author Feliciano Hodge [facility] December 11, 2022 9:06am Note Date/Time December 11, 2022 9 :06am [facility] [address] [place] [address] Gastroenterology H&P Signed Patient: Magnus García MR#: [id number] : 1975 Acct:[id number] Age/Sex: 47 / M Adm Date: 3 Loc: Room: Type: [facility] Attending Dr: Feliciano Hodge MD [...] signed by Feliciano Hodge MD> 12/11/22 09 [facility] Work Phone: History general Narrative - Reported* Type Description Date Medical History Asthma, unspecified asthma severity, unspecified whether complicated, unspecified whether persistent Medical History Dysphagia, unspecified type Medical History Eccrine porocarcinoma of skin Surgical History EGD Surgical History skin cancer excision Hospitalization History see above [employer] Other Hospital Discharge instructions Additional Instructions Regular diet. No activity restrictions.[facility] Work Phone: Hospital Discharge instructions [...] a follow-up appointment for you -Start an stnm-vce-gfiyoci acid medication such as Prilosec or Nexium, once daily -Continue fiber supplementation -Notify the doctor if you have any problems. -Repeat colonoscopy in 10 years. -Follow up with PCP. - Office number [phone].[facility] Work Phone: InstructionsNot on filedocumented in this encounter [facility] SystemInstructionsNot on filedocumented in this encounter [facility] SystemReason for visit NarrativePATIENT HERE AT THE REQUEST OF DR. 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 10:52:46 AM >Received today and waiting for office notes to be locked before [facility] [place] 09/06/2021 01:56:58 PM >Referral was fax Summary [...] DATE CREATED AUTHOR AUTHOR'S ORGANIZ ATION 12/18/2022 [facility] DATE CREATED AUTHOR AUTHOR'S ORGANIZ ATION 03/30/[address] [facility] DATE CREATED AUTHOR AUTHOR'S ORGANIZ ATION 11/05/2023 [facility] EPIC DATE CREATED AUTHOR AUTHOR'S ORGANIZ ATION 12/02/2023 [facility] Care Teams (unrecognized sec tion and content) [...] MD Other Provider Active Ana Ochoa , MANAGER OF ADMINISTRATION Other Provider Active Katie Quintanilla , DO Other Provider Active London Smith MD Other Provider Active Ed Powell , DO Other Provider Active Benito Farley MD Other Provider Active Elvi Andres MD Other Provider Active Pilar Resendiz [...] MD Other Provider Active Sona Moore , STEEL HANGER-C Other Provider Active Conor Jones MD Other Provider Active Christophe Martinez MD Other Provider Active Katie Sauceda MD Other Provider Active Alexander Clancy MD Other Provider Active Stephanie Medina , DO Other Provider Active Rashmi Wright MD Other Provider Active Husam Marcial , DO Other Provider Active Tank Sarah , DO Other Provider Active Kaley Herman , MANAGER OF ADMINISTRATION Other Provider Active Pedrito Ignacio , DO [...] Charlie Rea MD Primary Care Provider Active Manager Bakery Relationship Specialty Start Date End Date Charlie Rea MD [address] [facility], [address] [place] [address] PCP - General Internal Medicine 01/04/23 Manager Bakery Relationship Specialty Start Date End Date Charlie Rea MD NPI: [id number] [place] [address], [address] [place] [id number] PCP - General Internal Medicine 01/04/23 Goals [...] BE BASED ON THE PRIMARY CLINICAL RECORDS. [employer] provides no warranty or guarantee of the accuracy or completeness of information in this document.
--- NOTE | 2023-12-11 15:12 | XR_ITS ---
The [address] [address] Patient Name: BRAD CUADRA MRN: [id number] date: 1975 Sex: M Assigned Patient Location: [facility] Current Patient Location: [facility] Accession/Order Number: [id number] Exam Date: 12/11/2023 15:16 Report Date: 12/11/2023 15:41 At the request of: JESSICA CHAVIRA Procedure: XR lumbar spine min 4V EXAMINATION: XR lumbar spine min 4V HISTORY: lumbar spondylosis COMPARISON: No relevant comparison available. FINDINGS: BONES: Normal alignment of the lumbar vertebral bodies with no acute fracture or spondylolisthesis. Mild degenerative spondylosis. Iebm-ux-nhjhhmvn facet osteoarthropathy. DISC SPACES: Moderate to severe disc space narrowing with endplate sclerosis and vacuum disc most significant L4-L5 and L5-S1 PARASPINOUS: Negative. No paraspinous abnormality is seen. OTHER: A BB marker indicates the L3 transverse process XR/XR lumbar spine min 4V IMPRESSION: Jiyj-vm-qasylxwz degenerative changes Electronically authenticated by: GALA DOWNS Date: 12/11/2023 15:41
== END 2023-12-11 15:05 | disposition home or self-care (01) ==
LOC: RAD 15:05
PROVIDERS: PCP Internal Medicine; Visit Provider Anesthesiology Pain Medicine
DX: M47.816 Spondylosis without myelopathy or radiculopathy, lumbar region (principal); M47.817 Spondylosis without myelopathy or radiculopathy, lumbosacral region
CPT/HCPCS: 72110; G0463

== ENCOUNTER 2024-01-08 07:25 | Day surgery (SDC) | payer OTHER, SELFPAY ==
--- OUTSIDE RECORDS SUMMARY | 2024-01-08 07:29 | XMS_ITS | CCD ---
Author Name Unknown Address [address] [place] [address] Organization [facility] Care Team Providers Care Glass Lathe Operator Name Role Phone Cesario Alejandre Attending Provider [...] Other Provider MD Donnie Ramos Other Provider SIXTO Ochoa Other Provider [phone] DO Katie Quintanilla Other Provider [phone] MD London Smith Other Provider [phone] DO Ed Powell Other Provider [phone] MD Benito Farley Other Provider [phone] MD Elvi Andres Other Provider [phone] Astrid ANP-BC Pilar Other Provider MD David Penn Other Provider MD Constantino Jacobs Other Provider MD Lucia Yañez Other Provider MD Kyree Lawrence Other Provider DO Flex Pruitt Other Provider [phone] MD Marty Hendricks Other Provider MD Mauro Fernandez Other Provider MD Eliezer Pritchard Other Provider REYES Moore Other Provider MD Conor Jones Other Provider MD Christophe Martinez Other Provider MD Katie Sauceda Other Provider MD Alexander Clancy Other Provider DO Stephanie Medina Other Provider Al MD Rashmi Pedersen Other Provider DO Husam Marcial Other Provider [phone] DO Tank Sarah Other Provider SIXTO Herman [...] Consulting Unavailable Rachel, Donnie K Consulting Unavailable Ana Ochoa Consulting Unavailable Katie Quintanilla Consulting Unavailable Sarah, [place] Consulting Unavailable Ed Powell Consulting UnavailBenito Leyva Consulting Unavailable Elvi Andres Consulting Unavailable Pilar Resendiz Consulting Unavailable David Penn Consulting Unavailable Constantino Jacobs Consulting Unavailable Lucia Yañez Consulting Unavailable Kyree Lawrence Consulting Unavailable Flex Pruitt Consulting Unavailable Marty Hendricks Consulting Unavailable Mauro Fernandez Consulting Unavailable Eliezer Pritchard Consulting Unavailable Sona Moore Consulting Unavailable Doamekpor, Conor Bose Consulting Unavailab le Juan, Christophe Consulting Unavailable Sohail, Katie Consulting Unavailable Juliteh, Alexander Consulting Unavailable Stephanie Medina Consulting Unavailable Rashmi Charles Consulting Unavailab Husam Ocasio Consulting Unavailable Tank Sarah Consulting Unavailable Obika, Kaley Consulting Unavailable Pedrito Ignacio Consulting Unavailable Daromar, Obaydah M Consulting Unavailable Jennifer Miller Consulting Unavailable Feliciano Hodge Admitting Unavailable Charlie Rea Primary Care Unavailable Feliciano Hodge Attending Unavailable Colt Painting Unavailable CHRIS .SOLOMON Attending Unavailable CHRIS .SOLOMON Admitting Unavailable DR CHARLIE REA Primary Care Unavailable DR CHARLIE REA Primary Care Unavailable SOLOMON GRAHAM Attending Unavailable SIMASHMIPATHY ., NARENDRANATH Admitting Valeria vailable LAKSHMIPATHY ., NARENDRANATH Consulting Valeria vailable SIMASHMIPATHAngelica ., NARENDGABRIELLAATH Attending Valeria vailable DR CHARLIE REA Primary Care Unavailable LAKSHMIPATHY ., NARENDRANATH Admitting Valeria vailable LAKSHMIPATHY ., NARENDRANATH Consulting Valeria vailagregorio REA, DR GUERRA Primary Care Unavailable LAKSHMIPATHY ., NARENDGABRIELLAATH Attending Valeria vailable SIMASHMIPATHY ., NARENDGABRIELLAATH Admitting Valeria vailaDR CHARLIE Terrazas Primary Care Unavailable RONNA ., DR KEVIN Nichole Attending Unavailable RONNA ., DR KEVIN Nichole Admitting Unavailable LAYLA BOLTON Consulting Unavailable DR GALA JOSEPH Primary Care Unavailable JAQUELIN VIRGEN Attending Unavailable SUSY ., JAQUELIN Admitting Unavailable RITO ., SONA Consulting Unavailable SUSY ., JAQUELIN Consulting Unavailable FELIX, GALA Consulting Unavailable NICOLAS, DR PATRICIA Sotelo Attending Unavailable NICOLAS, DR PATRICIA Sotelo Admitting Unavailable NICOLAS, DR PATRICIA Sotelo Consulting Unavailable DEFGEE, DR CEDEÑO Primary Care Unavailable DEFRANCE, DR CEDEÑO Primary Care Unavailable NICOLAS, DR PATRICIA Sotelo Attending Unavailable NICOLAS, DR PATRICIA Sotelo Admitting Unavailable NICOLAS, DR PATRICIA Sotelo Consulting Unavailable SACHA, DR CEDEÑO Primary Care Unavailable PAY ., [...] Care Unavailable DEFRANCE, DR CEDEÑO Consulting Unavailable Hill Charlie FUENTES Primary Care Provider ANNAMARIE LAY Attending Unavailable ANNAMARIE LAY Attending Unavailable CHARLIE REA Attending Unavailable ANNAMARIE LAY Attending Unavailable JEYSON CALLAWAY Attending Unavailab ANTONIO Lindo Attending Unavailable CHARLIE REA Attending Unavailable CHARLIE REA Referring Unavailable ANTONIO AWAD Attending Unavailable ANTONIO AWAD Referring Unavailable ANTONIO AWAD Referring Unavailable Charlie Rea MD Primary Care Provider [phone] Antonio Awad MD Unavailable Chris ROBERTS CHAPELAnnamarie Unavailable LISA BOSTON Attending Unavailable CHARLIE REA Referring Unavailable CHARLIE REA Primary Care Unavailable LISA BOSTON Referring Unavailable CHARLIE REA Primary Care Unavailable CHARLIE REA Referring Unavailable CHARLIE REA Primary Care Unavailable Unavailable Unavailable Unavailable Allergies Allergy Classification Reported Allergen(s) Allergy Type Date of Onset Reaction(s) Facility (9 sources) Penicillins; Translations: [Penicillins] Allergy to substance 10-30-20 18 [facility] (9 sources) Sulfonamides (Antibiotic); Translations: [Sulfa (Sulfonamide Antibiotics)] Allergy to substance 01-10-20 [facility] (12 sources) Penicillin G; Translations: [PENICILLIN G] Drug Allergy 03-21-20 23 Other (See Comments), Unknown [facility] Other (5 sources) Sulf-10 Drug allergy Unknown [facility] Other (10 sources) Diclofenac; Translations: [DICLOFENAC] Drug Allergy 03-21-20 Anxiety [facility] (7 sources) pregabalin; Translations: [PREGABALIN] Drug Allergy 03-21-20 panic attacks [facility] Other (1 source) Diclofenac Drug Allergy [facility] (1 source) Penicillin Drug Allergy [facility] (1 source) pregabalin Drug Allergy [facility] (1 source) Sulfonamides (Antibiotic) Drug allergy (disorder) [facility] (4 sources) Diclofenac; Translations: [DICLOFENAC SODIUM] Drug Allergy 09-22-20 [facility] (7 sources) hydrOXYzine; Translations: [HYDROXYZINE] Drug Allergy 03-21-20 Shortness Of Breath [facility] (4 sources) Ibuprofen; Translations: [IBUPROFEN] Drug Allergy 09-22-20 [facility] (4 sources) Latex; Translations: [LATEX] Propensity to adverse reactions to drug 06-22-20 [facility] (4 sources) Methocarbamol; Translations: [METHOCARBAMOL] Drug Allergy 09-22-20 [facility] (4 sources) Naproxen; Translations: [NAPROXEN SODIUM] Drug Allergy 09-22-20 [facility] Work Phone: (4 sources) Non-steroidal anti-inflammator y agent; Translations: [NSAIDS (NON-STEROIDAL ANTI-INFLAMMATOR Y DRUG)] Propensity to adverse reactions to drug 03-21-20 Shortness Of Breath [facility] (4 sources) Sulfur; Translations: [SULFUR] Drug Allergy 10-30-20 Vomiting [facility] (3 sources) DULoxetine Drug Allergy 03-21-20 Other [facility] (3 sources) Non-steroidal anti-inflammator y agent Drug Allergy 03-21-20 Shortness of breath [facility] (3 sources) Pregabalin Allergy to substance 03-21-20 [facility] (3 sources) Sulfonamides (Antibiotic) Drug Allergy 03-21-20 Rash [facility] Medications Current Medications Medication Drug Class(es) Dates Sig (Normalized) Sig (Original) 8 hr acetaminophen 650 mg extended release oral tablet (7 sources) Start: 12-11-2022 take 1 tablet by mouth every twelve hours Acetaminophen (Tylenol Arthritis) 650 mg Tablet Extended Release Active 650 MG PO Q12H December 11, 2022 12:00am Start: 02-11-2021 End: 09-08-2022 take 2 tablets by mouth every four to six hours Acetaminophen (Tylenol) 325 mg Tablet Discontinued 650 MG PO EVERY 4-6 HOURS February 10, 2021 11:00pm September 08, 2022 10:00am acetaminophen (T ylenol 8 Hour) 650 MG ER tablet Take 1,300 mg by mouth 2 (two) times a day as needed. 0 Active acetaminophen 325 mg / butalbital 50 mg / caffeine 40 mg oral tablet (6 sources) Barbiturate, Central Nervous System Stimulant, Methylxanthine Start: 08-29-2022 take 1-2 tablets by mouth every six hours as needed for headache mbhfipakuy-tifxsncofpfup-xock (FIORICET, ESGIC) 50-325-40 mg per tablet Take 1-2 tablets by mouth every 6 (six) hours as needed for headaches. 60 tablet 3 08/29/2022 Active [id number] 200 actuat albuterol 0.09 mg/actuat metered dose inhaler (10 sources) beta2-Adrenergic Agonist Start: 10-16-2023 take 2 puff(s) by inhalation every four hours albuterol HFA 90 mcg/act inhaler Indications: Moderate persistent asthma with acute exacerbation (CMS/HCC) Inhale 2 puffs every 4 (four) hours if needed for shortness of breath. 18 g 3 10/16/2023 Active Start: 12-11-2022 Albuterol Sulf ate Active 1 INH INHALATION Twice daily December 11, 2022 12:00am [...] 12/02/2021 Active baclofen 10 mg oral tablet (7 sources) gamma-Aminobutyric Acid-ergic Agonist take 1 tablet by mouth in the morning, then take 1 tablet by mouth at bedtime baclofen (LIORESAL) 10 mg tablet Take 1 tablet (10 mg total) by mouth in the morning and 1 tablet (10 mg total) before bedtime. 0 Active cholecalciferol 0.025 mg oral capsule (3 sources) Vitamin D take 1 capsule by mouth in the morning cholecalciferol (Vitamin D-3) 25 MCG (1000 UT) capsule Take 2,000 Units by mouth in the morning. 0 Active chondroitin sulfates 200 mg / glucosamine hydrochloride 250 mg oral tablet (1 source) Start: 2022 take 1 tablet by mouth once daily at mealtime Glucosamine-Chondroi tin (Osteo Bi-Flex) 250-200 mg Tablet Active 1 TAB PO Daily December 11, 2022 12:00am give after food/meal dicyclomine hydrochloride 20 mg oral tablet (3 sources) Anticholinergic Start: 2021 take 1 tablet by mouth in the morning, then take 1 tablet by mouth at bedtime dicyclomine (BENTYL) 20 mg tablet Take 1 tablet (20 mg total) by mouth in the morning and 1 tablet (20 mg total) before bedtime. 20 tablet 0 10/21/2022 Active docosahexaenoic acid 120 mg / eicosapentaenoic acid 180 mg oral capsule (3 sources) omega-3 1000 MG capsule capsule Take by mouth. 0 Active [id number] 0.3 ml EPINEPHrine 1 mg/ml auto-injector (6 sources) alpha-Adrenergic Agonist, beta-Adrenergic Agonist, Catecholamine Start: 2021 EPINEPHrine (EPIPEN) 0.3 mg/0.3 mL auto-injector Inject 0.3 mL (0.3 mg total) into the appropriate muscle as needed (as directed) for up to 1 dose. 1 each 0 09/06/2022 Active Start: 09-06-2022 inject 0.3 mg by int ramuscular injection every twenty-four hours as needed EPINEPHrine (Epipen) 0.3 MG/0.3ML injection syringe Inject 0.3 mg into the shoulder, thigh, or buttocks Daily as needed. 0 09/06/2022 Active escitalopram 10 mg oral tablet (3 sources) Serotonin Reuptake Inhibitor Start: 09-25-2022 take 1 tablet by mouth in the morning escitalopram (LEXAPRO) 10 mg tablet Take 1 tablet (10 mg total) by mouth in the morning. 30 tablet 5 09/25/2022 Active fluticasone propionate 0.05 mg/actuat metered dose nasal spray (15 sources) Corticosteroid Start: 10-03-2021 take 1 spray(s) nasal route once daily fluticasone propionate (FLONASE) 50 mcg/actuation nasal spray SPRAY 1 SPRAY INTO EACH NOSTRIL EVERY DAY 16 mL 0 10/03/2021 Active Start: 01-10-2021 End: 12-11-2022 Fluticasone Propionate Disco ntinued 1 SPRAY INTRANASAL Daily January 10, 2021 12:00am December 11, 2022 8:39am take 1 spray(s) nasa l route in the morning fluticasone (Flonase) 50 MCG/ACT nasal spray Administer 1 spray into each nostril in the morning. 0 Active Flonase Active take 1 spray(s) nasa l route once daily Fluticasone Propionate 50 MCG/ACT SPRAY 1 SPRAY INTO EACH NOSTRIL EVERY DAY Nasal for 30 Active 60 actuat fluticasone propionate 0.25 mg/actuat / salmeterol 0.05 mg/actuat dry powder inhaler (7 sources) Corticosteroid, beta2-Adrenergic Agonist Start: 06-25-2023 take 1 puff(s) by inhalation in the morning Advair Diskus 250-50 MCG/ACT aerosol powder Inhale 1 puff in the morning and 1 puff before bedtime. 0 06/25/2023 Active take 1 puff(s) by in halation in the morning fluticasone propion-salmeteroL (ADVAIR) 250-50 mcg/dose DISKUS Inhale 1 puff in the morning and 1 puff before bedtime. 0 Active Advair Diskus 25 0-50 MCG/ACT Inhalation for 90 Days Active gabapentin 600 mg oral tablet (20 sources) Anti-epileptic Agent Start: 12-18-2023 End: 06-15-2024 take 1 tablet by mouth in the morning, then take 1 tablet by mouth in the evening, then take 1 tablet by mouth at bedtime gabapentin (Neurontin) 600 MG tablet Indications: Spinal stenosis of lumbar region without neurogenic claudication , Idiopathic progressive neuropathy Take 1 tablet (600 mg) by mouth in the morning and 1 tablet (600 mg) in the evening and 1 tablet (600 mg) before bedtime. 90 tablet 5 12/18/2023 06/15/2024 Active Start: 09-22-2022 take 1 capsule by [facility] three times daily gabapentin (NEURONTIN) 400 mg capsule Indications: Lumbar spondylosis , Cervical spondylosis without myelopathy Take 1 capsule (400 mg total) by mouth 3 (three) times a day. 90 capsule 2 09/22/2022 Active Start: 09-10-2022 End: 12-11-2022 take 200 mg by mouth three times daily Gabapentin Discontinued 200 MG PO Three times daily September 09, 2022 11:00pm December 11, 2022 [...] 11, 2021 10:33am take [address] [facility] every eight hours Gabapentin 100 MG 1 capsule Orally tid Active hydrocortisone acetate 10 mg/ml / pramoxine hydrochloride 10 mg/ml rectal foam (3 sources) Corticosteroid Start: 10-21-2022 hydrocortisone-pramoxine (PROCTOFOAM-HS) rectal foam Insert 1 applicator into the rectum in the morning and 1 applicator before bedtime. 10 g 0 10/21/2022 Active hydrOXYzine pamoate 25 mg oral capsule (3 sources) Antihistamine take 1 capsule by mouth every six hours as needed Vistaril 25 MG capsule Take 25 mg by mouth every 6 (six) hours if needed. 0 Active lactobacillus acidophilus [id number] unt / pectin 100 mg oral tablet (3 sources) acidophilus-pect in, citrus 25 million cell -100 mg tablet Take by mouth 3 (three) times a day with meals. 0 Active LORazepam 1 mg oral tablet (9 sources) Benzodiazepine Start: 12-11-2022 take 0.5 mg by mouth three times daily Lorazepam Active 0.5 MG PO Three times daily December 11, 2022 12:00am Start: 10-06-2022 take 1 tablet by jie once daily at bedtime LORazepam (ATIVAN) 2 mg tablet Indications: Primary insomnia Take 1 tablet (2 mg total) by mouth once daily at bedtime. 30 tablet 0 10/06/2022 Active Start: 09-08-2022 End: 09-10-2022 take 1 mg by mouth twice daily Lorazepam Discontinued 1 MG PO Twice daily September 07, 2022 11:00pm September 10, 2022 10:05am take 1 tablet by jie every twenty-four hours Ativan 1 MG 1 tablet at bedtime as needed Orally Once a day Active wiujbcoy-jhik-VV-calcium &mins (THERAGRAN-M) 9 mg iron-400 mcg tablet (3 sources) cogcrztv-qdfp-GY -calcium &mins (THERAGRAN-M) 9 mg iron-400 mcg tablet Take 1 tablet by mouth in the morning. 0 Active Multivitamin preparation (1 source) Star t: 11-20 take 1 tablet by mouth once daily Multivitamin Active 1 TAB PO Daily December 11, 2022 12:00am omega 2-xbc-utw-fish oil (Fish OiL) 300-1,000 mg capsule (3 sources) omega 3-dha-epa- fish oil (Fish OiL) 300-1,000 mg capsule Take by mouth. 0 Active [place]-3 Fatty Acids (Fish Oil) 500 mg Capsule (1 source) Star t: 11-20 take 1 capsule by mouth once daily [place]-3 Fatty Acids (Fish Oil) 500 mg Capsule Active 500 MG PO Daily December 11, 2022 12:00am omeprazole 40 mg delayed release oral capsule (4 sources) Proton Pump Inhibitor Star t: 03-19 take 1 capsule by mouth in the morning omeprazole (PriLOSEC) [address] capsule Take 40 mg by mouth in the morning and 40 mg in the evening. Take before meals. 0 04/02/2023 Active Start: 03-13-2023 Omeprazole 40 MG 1 capsule 30 minutes before morning meal and evening meal Orally bid for 30 days Feb, Active Psyllium (1 source) Metamucil Active QUEtiapine 100 mg oral tablet (10 sources) Atypical Antipsychotic Start: End: take 1 tablet by mouth at bedtime QUEtiapine (SEROquel) 100 MG tablet Indications: Bipolar II disorder (CMS/HCC) Take 1 tablet (100 mg) by mouth at bedtime 30 tablet 1 12/27/2023 02/25/2024 Active Start: 12-11-2022 take 50 mg by mouth once daily Quetiapine Active 50 MG PO Daily December 11, 2022 12:00am sertraline 100 mg oral tablet (10 sources) Serotonin Reuptake Inhibitor Start: 11-06-2023 End: 02-04-2024 take 1 tablet by mouth in the morning sertraline (Zoloft) 100 MG tablet Indications: Bipolar II disorder (CMS/HCC) Take 1 tablet (100 mg) by mouth in the morning and 1 tablet (100 mg) before bedtime. 60 tablet 2 12/27/2023 01/26/2024 Active Start: 12-11-2022 take 50 mg by mouth once daily Sertraline Active 50 MG PO Daily December 11, 2022 12:00am Sertraline HCl 1 00 MG Oral for 30 Days Active tiZANidine 4 mg oral tablet (3 sources) Central alpha-2 Adrenergic Agonist Start: 10-18-2023 tiZANidine (Zanaflex) 4 MG tablet topiramate 25 mg oral tablet (3 sources) Start: 10-23-2023 End: 10-22-2024 take 1 tablet by mouth in the morning topiramate (Topamax) 25 MG tablet Indications: Intention tremor Take 1 tablet (25 mg) by mouth in the morning and 1 tablet (25 mg) before bedtime. 60 tablet 2 10/23/2023 10/22/2024 Active traZODone hydrochloride 50 mg oral tablet (5 sources) Serotonin Reuptake Inhibitor Start: 06-20-2023 End: 12-27-2023 traZODone (Desyrel) 50 MG tablet Indications: Insomnia due to mental condition 1-2 tabs prn insomnia 60 tablet 1 12/27/2023 Active vitamin b12 0.05 mg oral tablet (4 sources) Vitamin B12 Start: 12-11-2022 take 1 tablet by mouth once daily Cyanocobalamin (Vitamin B-12) (Vitamin B-12) 50 mcg Tablet Active 50 MCG PO Daily December 11, 2022 12:00am take 1 tablet by mouth in the mo rning cyanocobalamin (Vitamin B-12) 500 MCG tablet Take 500 mcg by mouth in the morning. 0 Active Completed/Discontinued Medications Medication Drug Class(es) Dates Sig [...] 5 - 10 MG PO Q6H 60 February 22, 2021 September 10, 2022 10:05am [...] then take 1 tab for 3 days primidone 50 mg oral tablet (3 sources) Anti-epileptic Agent Start: 10-17-2023 End: 01-15-2024 take 1 tablet by mouth in the morning primidone (Mysoline) 50 MG tablet Indications: Intention tremor , Idiopathic progressive neuropathy , Myelopathy concurrent with and due to spinal stenosis of cervical region (CMS/HCC) , Spinal stenosis of lumbar region with neurogenic claudication , Sensory ataxia Take 1 tablet (50 mg) by mouth in the morning and 1 tablet (50 mg) before bedtime. 60 tablet 2 10/17/2023 12/27/2023 Discontinued sulfamethoxazole 800 mg / trimethoprim 160 mg oral tablet (2 sources) Dihydrofolate Reductase Inhibitor Antibacterial, Sulfonamide Antimicrobial Start: 02-22-2021 End: 09-08-2022 take 1 tablet by mouth every twelve hours Sulfamethoxazole- Trimethoprim (Bactrim Ds) 800-160 mg Tablet Discontinued 1 [...] Date Documented Da te Episodic/Chronic Anxiety disorders (14 sources) Anxiety; Translations: [Anxiety disorder, unspecified] Onset: 2 09-08-2022 Chronic Asthma (3 sources) Exacerbation of moderate persistent asthma; Translations: [Moderate persistent asthma with (acute) exacerbation] Onset: 3 06-15-2023 Chronic Cardiac dysrhythmias (2 sources) Palpitations; Translations: [Palpitations] Onset: 4 11-29-2023 Episodic Esophageal disorders (2 sources) Gastroesophageal reflux disease; Translations: [Gastro-esophageal reflux disease without esophagitis] Chronic Hyperplasia of prostate (3 sources) Prostatism; Translations: [Benign prostatic hyperplasia without lower urinary tract symptoms] Onset: 2 12-19-2022 Chronic Miscellaneous mental health disorders (2 sources) Insomnia disorder related to another mental disorder; Translations: [Insomnia due to other mental disorder] 12-27-2023 Chronic Mood disorders (11 sources) Depressive disorder; Translations: [Depression] Onset: 3 09-08-2022 Chronic Nonspecific chest pain (3 sources) Chest pain; Translations: [Other chest pain] Onset: 4 11-29-2023 Episodic Nutritional deficiencies (4 sources) Vitamin D deficiency; Translations: [Vitamin D deficiency, unspecified] Onset: 3 06-15-2023 Chronic Osteoarthritis (7 sources) Arthropathy of right shoulder; Translations: [Primary osteoarthritis, right shoulder] Onset: 1 Resolved: 1 Chronic Other aftercare (2 sources) Other termite control servicer (current) drug therapy; Translations: [OTH PRACTICE ADMINISTRATOR CURRENT DRUG THERAPY] Onset: 2 Episodic Other connective tissue disease (4 sources) Fibromyalgia; Translations: [FIBROMYALGIA] Onset: 3 Episodic Other connective tissue disease (1 source) Other muscle spasm; Translations: [OTHER MUSCLE SPASM] Onset: 3 Episodic Other gastrointestinal disorders (3 sources) Irritable bowel syndrome; Translations: [Mixed irritable bowel syndrome] Chronic Other gastrointestinal disorders (2 sources) Other specified symptoms and signs involving the digestive system and abdomen Episodic Other gastrointestinal disorders (3 sources) Splenomegaly; Translations: [Splenomegaly, not elsewhere classified] Onset: 3 11-06-2023 Episodic Other hereditary and degenerative nervous system conditions (3 sources) Intention tremor; Translations: [Other specified forms of tremor] Onset: 3 10-17-2023 Chronic Other lower respiratory disease (1 source) Dyspnea; Translations: [Shortness of breath] Onset: 4 11-29-2023 Episodic Other lower respiratory disease (1 source) [...] Translations: [OTHER CHRONIC PAIN] Onset: 3 Chronic Other nervous system disorders (3 sources) Neuropathy; Translations: [Idiopathic progressive neuropathy] Onset: 3 10-29-2023 Chronic Other nervous system disorders (3 sources) Bilateral carpal tunnel syndrome; Translations: [Carpal tunnel syndrome, bilateral upper limbs] Onset: 3 10-29-2023 Chronic Other non-traumatic joint disorders (3 sources) Derangement of right shoulder joint; Translations: [Other specific joint derangements of right shoulder, not elsewhere classified] Onset: 1 07-25-2023 Chronic Residual codes; unclassified (3 sources) Obstructive sleep apnea syndrome; Translations: [Obstructive sleep apnea (adult) (pediatric)] Onset: 3 08-07-2023 Chronic Spondylosis; intervertebral disc disorders; other back [...] and rectum; Translations: [Melena] Onset: 09-06-2022 Episodic Hemorrhoids (3 sources) Hemorrhoids; Translations: [Unspecified hemorrhoids] Onset: 07-25-2023 07-25-2023 Episodic Mood disorders (7 sources) Mood disorders; Translations: [Depression, unspecified] Onset: 08-29-2022 Resolved: 12-18-2023 08-29-2022 Other connective tissue disease (1 source) Arthrodesis status; Translations: [ARTHRODESIS STATUS] Onset: 09-08-2022 Episodic Other connective tissue disease (3 sources) Fibromyalgia; Translations: [Fibromyalgia] Onset: 06-15-2023 06-15-2023 Episodic Other gastrointestinal disorders (1 source) Other [...] NECK LEVL INT] Onset: 09-21-2022 Episodic Unclassified (3 sources) Onset: 06-02-2020 06-02-2020 Results Test Name Value Interpretation Reference Range Facility BASIC METABOLIC PANLon 12-19 Anion gap [Moles/Vol] 10 mmol/L Normal 5-15 [facility] Comment on above: Performed By: #### Mary WOO, 48426-5, 09367-1 #### [facility] ([id number]) [address], [address] [place] [address] Calcium [Mass/Vol] 8.9 mg/dL Normal 8.5-10.5 [facility] Comment on above: Performed By: #### Mary WOO, [id number], [id number] #### [facility] ([id number]) [address], [address] [place] [address] Chloride [Moles/Vol] 108 mmol/L Normal 98-109 [facility] Comment on above: Performed By: #### Mary WOO, 93445-2, 65756-8 #### [facility] ([id number]) [address], [address] [place] [address] CO2 [Moles/Vol] 24 mmol/L Normal 22-[address] [facility] Comment on above: Performed By: #### Mary WOO, 80806-1, 84528-9 #### [facility] ([id number]) [address], [address] [place] [address] Creatinine [Mass/Vol] 0.90 mg/dL Normal 0.60-1.30 [facility] Comment on above: Result Comment: METH OD TRACEABLE TO IDMS STANDARD Performed By: #### Mary WOO, 37396-0, 77471-0 #### [facility] ([id number]) [address], [address] [place] [address] eGFR (CKD-EPI) NON-RACE DEPENDENT >90 Normal >[address] [facility] Comment on above: Result Comment: Reported eGFR is based on the CKD-EPI 2020 equation that does not use a race coefficient. Performed By: #### Mary WOO, 40860-0, 54400-3 #### [facility] ([id number]) [address], [address] [place] [address] Glucose [Mass/Vol] 90 mg/dL Normal 65-99 [facility] Comment on above: Performed By: #### Mary WOO, 56756-5, 22673-6 #### [facility] ([id number]) [address], [address] [place] [address] Potassium [Moles/Vol] 4.0 mmol/L Normal 3.5-5.0 [facility] Comment on above: Performed By: #### Mary WOO, 65736-3, 33045-1 #### [facility] ([id number]) [address], [address] [place] [address] Sodium [Moles/Vol] 142 mmol/L Normal 134-146 [facility] Comment on above: Performed By: #### Mary WOO, 09737-4, 69401-0 #### [facility] ([id number]) [address], [address] [place] [address] Urea nitrogen [Mass/Vol] 12 mg/dL Normal 5-[address] [facility] Comment on above: Performed By: #### Mary WOO, 29060-2, 66025-0 #### [facility] ([id number]) [address], [address] [place] [address] Lipid 1996 panelon 4 Cholesterol [Mass/Vol] 147 mg/dL Low 150-200 [facility] Comment on above: Performed By: ###[place], [address]-9, 77569-7 #### [facility] ([id number]) [address], [facility] [address] [place] [address] Cholesterol in HDL [Mass/Vol] 30 mg/dL Low >[address] [facility] Comment on above: Result Comment: HDL <40 mg/dL - High Risk HDL > or = 40mg/dL- Desirable HDL >60 mg/dL - Negative Risk Performed By: ###[place], [address]-3, 15375-7 #### [facility] ([id number]) [address], [address] [place] [address] Cholesterol in LDL [Mass/Vol] 86 mg/dL Normal <[address] [facility] Comment on above: Result Comment: LDL <100 mg/dL - Desirable LDL >160 mg/dL - High Risk Performed By: ###[place], [address]-7, 05731-4 #### [facility] ([id number]) [address], [address] [place] [address] Cholesterol in VLDL [Mass/Vol] 31 mg/dL High 0-[address] [facility] Comment on above: Performed By: ###[place], [address]-1, 90372-7 #### [facility] ([id number]) [address], [facility] [address] [place] [address] CHOLESTEROL:HDL 4.9 Normal 1.0-5.[address] [facility] Comment on above: Performed By: ###[place], [address]-1, 73153-8 #### [facility] ([id number]) [address], [address] [place] [address] Triglyceride [Mass/Vol] 155 mg/dL High 27-[address] [facility] Comment on above: Performed By: #### B , 19869-1, 26944-0 #### [facility] ([id number]) [address], [address] [place] [address] Vitamin D+Metabolites [Mass/ Vol]on 12-19-2023 VITAMIN D 25 HYD TOT 29.2 ng/mL Low 30-100 [facility] Comment on above: Result Comment: Vitamin D status 25 [place] Vitamin D Deficiency <20 ng/mL Insufficiency 20-29 ng/mL Sufficiency 30-100 ng/mL Toxicity >100 ng/mL NOTE: A pediatric reference range has not been established by the phone banker of this kit. The [place] [employer] recommends a Vitamin D level of = or >20ng/mL in infants and children. Performed By: #### B AMNA, 72923-2, 03693-3 #### [facility] ([id number]) [address], [address] [place] [address] MR BRAIN WO CONTRASTon 10-31 MR BRAIN [...] intracranial process. ELECTRONICALLY SIGNED BY: Charlie Marin, DO Normal Not Available XR CSPINE 2_3 VIEWSon [...] G[place]A [place] Date: 2022-09-19 20:25 Normal [facility] Bilirubin Test strip Ql (U)O rdered By: Kaley Herman on 09-08-2022 Bilirubin Ql (U) Negative Negative [facility] CT abdomen pelvis wo conon 1 CT abdomen pelvis wo con [place] [facility] [place] [address] [place] [address] CT Scan Report Signed Patient: Magnus García MR#: [id number] 8 : 1975 Acct:[id number] Age/Sex: 47 / M ADM Date: 09/08/22 Loc: Room: [address] [place] [address] Type: ADM IN Attending Dr: Red Cameron [...] Armstrong Jr., D.O.09/08/2022 4:33 PM Dictation Location: [place] [address] Transcribed By: [facility] 09/08/22 1633 Dictated By: Jace Armstrong Jr, DO 09/08/22 1631 Signed By: 09/08/22 1633 Normal [facility] Cholesterol [Mass/volume] in Serum or PlasmaOrdered By: Red Cameron on 09-08-2022 Cholesterol [Mass/Vol] 122 mg/dL 140-200 [facility] Comment on above: Chol less than 200 m g/dl low riskChol 201-239 mg/dl borderline riskChol 240 mg/dl and greater high risk Cholesterol in LDL Calc [Mas s/Vol]Ordered By: Red Cameron on 09-08-2022 Cholesterol in LDL [Mass/Vol] 50 mg/dL 0-100 [facility] Comment on above: LDL ATP III CLASSIFI CATIONLDL less than 100 mg/dL OptimalLDL 100-129 mg/dL Near or above optimalLDL 130-159 mg/dL Borderline highLDL 160-189 mg/dL HighLDL greater than 189 mg/dL Very high Cholesterol in VLDL Calc [Ma ss/Vol]Ordered By: Red Cameron on 09-08-2022 Cholesterol in VLDL [Mass/Vol] 38 mg/dL [facility] Color Auto (U)Ordered By: Leesa Herman on 09-08-2022 Color (U) Yellow Yellow [facility] Ketones Auto test strip (U) [Mass/Vol]Ordered By: Kaley Herman on 09-08-2022 Ketones (U) [Mass/Vol] Trace Negative [facility] Laboratory - Chemistry and C hemistry - challengeOrdered By: Kaley Herman on 09-08-2022 Lipase [Catalytic activity/Vol] 47.0 U/L [facility] Lipaseon 09-08-2022 Lipase [Catalytic activity/Vol] 47.0 U/L Normal [facility] Comment on above: Result Comment: PERF ORMED BY: [place] [address] PATHOLOGIST [employer] MANAGER RENE ALCANTARA M.D. Performed By: #### L IPASE #### [address] Lipid Panelon 09-08-2022 Cholesterol [Mass/Vol] 122 mg/dL Low 140-200 [facility] Comment on above: Result Comment: Chol less than 200 mg/dl low risk Chol 201-239 mg/dl borderline risk Chol 240 mg/dl and greater high risk Performed By: #### T SH3 wRFLX, [id number], LIPID #### [address] Cholesterol in HDL [Mass/Vol] 34 mg/dL Normal 29-71 [facility] Comment on above: Result Comment: HDL CHOL ATP-III CLASSIFICATION Cardiovascular Risk HDL > or equal to 60 mg/dL LOW HDL < 40 mg/dL HIGH Performed By: #### T SH3 wRFLX, [id number], LIPID #### [address] Cholesterol.total/Chol esterol in HDL [Mass ratio] 3.6 {ratio} Normal <5.0 [facility] Comment on above: Performed By: #### T SH3 wRFLX, [id number], LIPID #### [address] LDL Cholesterol,Calculated 50 mg/dL Normal 0-100 [facility] Comment on above: Result Comment: LDL ATP III CLASSIFICATION LDL less than 100 mg/dL Optimal LDL 100-129 mg/dL Near or above optimal LDL 130-159 mg/dL Borderline high LDL 160-189 mg/dL High LDL greater than 189 mg/dL Very high Performed By: #### T SH3 wRFLX, [id number], LIPID #### [facility] [address] [place] [address] [place] Triglyceride w/Reflex 191 mg/dL High 35-149 [facility] Comment on above: Result Comment: TRIG ATP III CLASSIFICATION TRIG less than 150 mg/dL Normal TRIG 150-199 mg/dL Borderline high TRIG 200-500 mg/dL High TRIG greater than 500 mg/dL Very high Standard traceable to the Center for Disease Conrtrol and Prevention (CDC) test method. Performed By: #### T SH3 wRFLX, [id number], LIPID #### [facility] [address] VLDL CHOLESTEROL 38 mg/dL Normal [facility] Comment on above: Performed By: #### T SH3 wRFLX, [id number], LIPID #### [facility] [address] Nitrite Test strip Ql (U)Ord ered By: Kaley Herman on 09-08-2022 Nitrite Ql (U) Negative Negative [facility] No Panel InformationOrdered By: Red Cameron on 09-08-2022 25-Hydroxy Vitamin D Total 9.6 ng/mL 30-100 [facility] Comment on above: VITAMIN D STATUS 25( [place])VITAMIN D RANGE (ng/mL) Deficient <20 Insufficient 20 to <30Sufficient 30 to 100Reference: Ez MF,Petey NC, Suzette VIRK, et al. Evaluation,treatment, and prevention of vitamin D deficiency; an Endocrine Society clinical practice guideline. JCEM. 2010; 96(7):1911-30. Protein Auto test strip (U) [Mass/Vol]Ordered By: Kaley Herman on 09-08-2022 Protein (U) [Mass/Vol] Negative Negative [facility] Serum or plasma high density lipoprotein (HDL) cholesterol measurementOrdered By: Red Cameron on 09-08-2022 Cholesterol in HDL [Mass/Vol] 34 mg/dL 29-71 [facility] Comment on above: HDL CHOL ATP-III CLA SSIFICATION Cardiovascular RiskHDL > or equal to 60 mg/dL LOWHDL < 40 mg/dL HIGH Serum or plasma total choles terol/high density lipoprotein (HDL) cholesterol mass ratOrdered By: Red Cameron on 09-08-2022 Cholesterol.total/Chol esterol in HDL [Mass ratio] 3.6 {ratio} <5.0 [facility] Specific gravity Auto test s trip (U) [Rel density]Ordered By: Kaley Herman on 09-08-2022 Specific gravity (U) [Rel density] 1.005 1.001-1.030 [facility] TSH DL <= 0.005 mIU/L QnOrde red By: Red Cameron on 09-08-2022 TSH Qn 1.04 m[IU]/L 0.45-5.33 [facility] Thyroid Stim Hormone w/Rflxo n 09-08-2022 Thyroid Stim Hormone w/Rflx 1.04 u[iU]/mL Normal 0.45-5.33 [facility] Comment on above: Performed By: #### T SH3 wRFLX, [id number], LIPID #### [facility] [address] Triglyceride [Mass/volume] i n Serum or PlasmaOrdered By: Red Cameron on 09-08-2022 Triglyceride [Mass/Vol] 191 mg/dL 35-149 [facility] Comment on above: TRIG ATP III CLASSIF ICATIONTRIG less than 150 mg/dL NormalTRIG 150-199 mg/dL Borderline highTRIG 200-500 mg/dL High TRIG greater than 500 mg/dL Very highStandard traceable to the Center for Disease Conrtrol and Prevention (CDC) test method. Urinalysison 09-08-2022 Appearance (U) Clear Normal Clear [facility] Comment on above: Order Comment: Name Collection Type:: Clean-Voided Midstream Performed By: #### U A #### [facility] [address] [place] [address] [place] Bilirubin,Urine Negative Normal Negative [facility] Comment on above: Order Comment: Name Collection Type:: Clean-Voided Midstream Performed By: #### U A #### [facility] [address] [place] [address] [place] Color (U) Yellow Normal Yellow [facility] Comment on above: Order Comment: Name Collection Type:: Clean-Voided Midstream Performed By: #### U A #### [facility] [address] [place] [id number] [place] Glucose Ql (U) Normal Normal Normal [facility] Comment on above: Order Comment: Name Collection Type:: Clean-Voided Midstream Performed By: #### U A #### [facility] [address] [place] [address] Ketones Ql (U) Trace High Negative [facility] Comment on above: Order Comment: Name Collection Type:: Clean-Voided Midstream Performed By: #### U A #### [facility] [address] [place] [address] Leukocyte esterase Test strip Ql (U) Negative Normal Negative [facility] Comment on above: Order Comment: Name Collection Type:: Clean-Voided Midstream Performed By: #### U A #### [address] Nitrite,Urine Negative Normal Negative [facility] Comment on above: Order Comment: Name Collection Type:: Clean-Voided Midstream Performed By: #### U A #### [address] Occult Blood,Urine Negative Normal Negative [facility] Comment on above: Order Comment: Name Collection Type:: Clean-Voided Midstream Result Comment: PERF ORMED BY: [place] [address] PATHOLOGIST [employer] MANAGER RENE ALCANTARA M.D. Performed By: #### U A #### [facility] [address] [place] [address] [place] pH (U) 6.0 [pH] Normal 5.0-9.0 [facility] Comment on above: Order Comment: Name Collection Type:: Clean-Voided Midstream Performed By: #### U A #### [place] [address] [place] Protein,Urine Negative Normal Negative [facility] Comment on above: Order Comment: Name Collection Type:: Clean-Voided Midstream Performed By: #### U A #### [address] Specificy [place],Urine 1.005 Normal 1.001-1.030 [facility] Comment on above: Order Comment: Name Collection Type:: Clean-Voided Midstream Performed By: #### U A #### [facility] [address] Urobilinogen,Urine Normal Normal Normal [facility] Comment on above: Order Comment: Name Collection Type:: Clean-Voided Midstream Performed By: #### U A #### [address] Urine clarity by refractomet ry automatedOrdered By: Kaley Herman on 09-08-2022 Clarity Refractometry automated (U) Clear Clear [facility] Urine glucose measurement by automated test strip (mass/volume)Ordered By: Kaley Herman on 09-08-2022 Glucose Auto test strip (U) [Mass/Vol] Normal mg/dL Normal [facility] Urine hemoglobin detection b y automated test stripOrdered By: Kaley Herman on 09-08-2022 Hemoglobin Auto test strip Ql (U) Negative Negative [facility] Urine leukocyte esterase det ection by automated test stripOrdered By: Kaley Herman on 09-08-2022 Leukocyte esterase Auto test strip Ql (U) Negative Negative [facility] Urobilinogen Auto test strip (U) [Mass/Vol]Ordered By: Kaley Herman on 09-08-2022 Urobilinogen (U) [Mass/Vol] Normal mg/dL Normal [facility] Vitamin D 25 Hydroxy Totalon 09-08-2022 Vitamin D 25 Hydroxy Total 9.6 ng/mL Low 30-100 [facility] Comment on above: Result Comment: KAYLEE MIN D STATUS 25([place])VITAMIN D RANGE (ng/mL) Deficient <20 Insufficient 20 to <30 Sufficient 30 to 100 Reference: Ez MF,Petey NC, Suzette VIRK, et al. Evaluation,treatment, and prevention of vitamin D deficiency; an Endocrine Society clinical practice guideline. JCEM. 2010; 96(7):1911-30. PERFORMED BY: [place] [address] PATHOLOGIST [employer] MANAGER RENE ALCANTARA M.D. Performed By: #### T SH3 wRFLX, [id number], LIPID #### [address] pH Auto test strip (U)Ordere d By: Kaley Herman on 09-08-2022 pH (U) 6.0 [pH] 5.0-9.0 [facility] OCC BLD IMMUNO SCREENon 08-19 OCCULT BLOOD Negative Normal NEGATIVE [facility] Comment on above: Performed By: #### O BSCRN #### [facility] [address] [place] [address] Dr. Francesca Mccabe CBC AUTO DIFFon 09-02-2022 BASO # 0.1 103/ul Normal 0.0-0.1 [facility] Comment on above: Performed By: #### C BC #### [facility] [address] [place] [address] Dr. Francesca Mccabe Basophils/100 WBC (Bld) 0.5 % Normal 0.2-2.0 [facility] Comment on above: Performed By: #### C BC #### [facility] [address] [place] [address] Dr. Francesca Mccabe EO # 0.1 103/ul Normal 0.0-0.7 [facility] Comment on above: Performed By: #### C BC #### [facility] [address] [place] [address] Dr. Francesca Mccabe Eosinophils/100 WBC (Bld) 0.5 % Critically low 0.9-7.0 [facility] Comment on above: Performed By: #### C BC #### [facility] [address] [place] [address] Dr. Francesca Mccabe Erythrocyte distribution width (RBC) [Ratio] 13.8 % Normal 11.0-15.0 [facility] Comment on above: Performed By: #### C BC #### [facility] [address] [place] [address] Dr. Francesca Mccabe Hematocrit (Bld) [Volume fraction] 51.0 % Normal 42.0-54.0 [facility] Comment on above: Performed By: #### C BC #### [facility] [address] [place] [address] Dr. Francesca Mccabe Hemoglobin (Bld) [Mass/Vol] 17.3 g/dL Normal 14.0-18.0 [facility] Comment on above: Performed By: #### C BC #### [facility] [address] [place] [address] Dr. Francesca Mccabe IG # 0.17 10e3/ul Critically high 0.00-0.03 [facility] Comment on above: Performed By: #### C BC #### [facility] [address] [place] [address] Dr. Francesca Mccabe IG % 1.5 % Critically high 0.0-0.5 [facility] Comment on above: Performed By: #### C BC #### [facility] [address] [place] [address] Dr. Francesca Mccabe LYMPH # 1.9 103/ul Normal 1.2-3.8 [facility] Comment on above: Performed By: #### C BC #### [facility] [address] [place] [address] Dr. Francesca Mccabe Lymphocytes/100 WBC (Bld) 16.9 % Critically low 20.5-60.0 [facility] Comment on above: Performed By: #### C BC #### [facility] [address] [place] [address] Dr. Francesca Mccabe MANUAL DIFF REQ NO Normal [facility] Comment on above: Performed By: #### C BC #### [facility] [address] [place] [address] Dr. Francesca Mccabe MCH (RBC) [Entitic mass] 28.4 pg Normal 25.9-34.0 [facility] Comment on above: Performed By: #### C BC #### [facility] [address] [place] [address] Dr. Francesca Mccabe MCHC (RBC) [Mass/Vol] 33.9 g/dL Normal 29.9-35.2 [facility] Comment on above: Performed By: #### C BC #### [facility] [address] [place] [address] Dr. Francesca Mccabe MCV (RBC) [Entitic vol] 83.7 fL Normal 80.0-94.0 [facility] Comment on above: Performed By: #### C BC #### [facility] [address] [place] [address] [address] Francesca Mccabe MONO # 0.9 103/ul Critically high 0.3-0.8 [facility] Comment on above: Performed By: #### C BC #### [facility] [address] [place] [address] [address] Francesca Mccabe Monocytes/100 WBC (Bld) 8.2 % Normal 1.7-12.0 [facility] Comment on above: Performed By: #### C BC #### [facility] [address] [place] [address] Dr. Francesca Mccabe NEUT # 8.1 103/ul Critically high 1.4-6.5 [facility] Comment on above: Performed By: #### C BC #### [facility] [address] [place] [address] Dr. Francesca Mccabe Neutrophils/100 WBC (Bld) 72.4 % Normal 43.0-75.0 [facility] Comment on above: Performed By: #### C BC #### [facility] [address] [place] [address] Dr. Francesca Mccabe Platelet mean volume (Bld) [Entitic vol] 11.0 fL Normal 9.5-13.5 [facility] Comment on above: Performed By: #### C BC #### [facility] [address] [place] [address] Dr. Francesca Mccabe PLT 246 103/ul Normal 150-450 [facility] Comment on above: Performed By: #### C BC #### [facility] [address] [place] [address] Dr. Francesca Mccabe RBC 6.09 106/ul Normal 4.70-6.10 [facility] Comment on above: Performed By: #### C BC #### [facility] [address] [place] [address] Dr. Francesca Mccabe WBC 11.1 103/ul Critically high 4.0-11.0 [facility] Comment on above: Performed By: #### C BC #### [facility] [address] [place] [address] [address] Francesca Mccabe PROF 14(COMP METB)on 022 Albumin [Mass/Vol] 4.3 g/dL Normal 3.4-5.0 [facility] Comment on above: Performed By: #### C MP #### [facility] [address] [place] [address] Dr. Francesca Mccabe Albumin/Globulin [Mass ratio] 1.2 {ratio} Normal [facility] Comment on above: Performed By: #### C MP #### [facility] [address] [place] [address] Dr. Francesca Mccabe ALP [Catalytic activity/Vol] 73 U/L Normal 46-116 [facility] Comment on above: Performed By: #### C MP #### [facility] [address] [place] [address] Dr. Francesca Mccabe ALT [Catalytic activity/Vol] 65 U/L Critically high 16-63 [facility] Comment on above: Performed By: #### C MP #### [facility] [address] [place] [address] Dr. Francesca Mccabe Anion gap [Moles/Vol] 14.8 mmol/L Normal [facility] Comment on above: Performed By: #### C MP #### [facility] [address] [place] [address] Dr. Francesca Mccabe AST [Catalytic activity/Vol] 34 U/L Normal 15-37 [facility] Comment on above: Performed By: #### C MP #### [facility] [address] [place] [address] Dr. Francesca Mccabe Bilirubin [Mass/Vol] 1.7 mg/dL Critically high 0.2-1.0 [facility] Comment on above: Performed By: #### C MP #### [facility] [address] [place] [address] Dr. Francesca Mccabe Calcium [Mass/Vol] 9.3 mg/dL Normal 8.5-10.1 [facility] Comment on above: Performed By: #### C MP #### [facility] [address] [place] [address] [address] Francesca Mccabe Chloride [Moles/Vol] 105 mmol/L Normal 98-107 [facility] Comment on above: Performed By: #### C MP #### [facility] [address] [place] [address] Dr. Francesca Mccabe CO2 [Moles/Vol] 21.7 mmol/L Normal 21.0-32.0 [facility] Comment on above: Performed By: #### C MP #### [facility] [address] [place] [address] Dr. Francesca Mccabe Creatinine [Mass/Vol] 1.12 mg/dL Normal 0.70-1.30 [facility] Comment on above: Performed By: #### C MP #### [facility] [address] [place] [address] Dr. Francesca Mccabe EGFR-AF QATARI >60 Normal >=60 [facility] Comment on above: Performed By: #### C MP #### [facility] [address] [place] [address] Dr. Francesca Mccabe EGFR-NON AF QATARI >60 Normal >=60 [facility] Comment on above: Performed By: #### C MP #### [facility] [address] [place] [address] Dr. Francesca Mccabe Globulin (S) [Mass/Vol] 3.6 g/dL Normal [facility] Comment on above: Performed By: #### C MP #### [facility] [address] [place] [address] Dr. rFancesca Mccabe Glucose [Mass/Vol] 93 mg/dL Normal 74-106 [facility] Comment on above: Performed By: #### C MP #### [facility] [address] [place] [address] Dr. Francesca Mccabe Potassium [Moles/Vol] 3.5 mmol/L Normal 3.5-5.1 [facility] Comment on above: Performed By: #### C MP #### [facility] Laboratory [address] [place] [address] Dr. Francesca Mccabe Protein [Mass/Vol] 7.9 g/dL Normal 6.4-8.2 The [facility] Comment on above: Performed By: #### C MP #### [facility] [address] [address] [address] Francesca Mccabe Sodium [Moles/Vol] 138 mmol/L Normal 136-145 [facility] Comment on above: Performed By: #### C MP #### [facility] [address] [address] [address] Francesca Mccabe Urea nitrogen [Mass/Vol] 9.0 mg/dL Normal 7.0-18.0 [facility] Comment on above: Performed By: #### C MP #### [facility] [address] [place] [address] Dr. Francesca Mccabe Urea nitrogen/Creatinine [Mass ratio] 8.0 mg/mg Normal [facility] Comment on above: Performed By: #### C MP #### [facility] [address] [place], [place] [id number] Dr. Francesca Mccabe DERRICK - TITERon 07-14-2022 DERRICK by HEp-2 CELLS Negative Normal (NEG - NEG) [facility] Comment on above: Performed By: #### E SRCRP, *DERRICK, CCP, RHF #### [facility] [address] [facility], [address] DERRICK TITER 1:40 Normal (<1:40 - 1:40) [facility] Comment on above: Performed By: #### E SRCRP, *DERRICK, CCP, RHF #### [facility] [address] [facility], [address] RF FACTORon 07-14-2022 RF FACTOR <9 Normal (0 - 12) [facility] Comment on above: Result Comment: RF F ACTOR = LESS THAN 9 IU/ML RF FACTOR MIN. DETECTION = 9 IU/ML. Performed By: #### E SRCRP, *DERRICK, CCP, RHF #### [facility] [address] [facility], [address] SED RATE - CRPon 07-14-2022 CRP EXTENDED RANGE 4.96 MG/L High (0.00 - 3.20) [facility] Comment on above: Order Comment: FACIL ITY: [facility] [id number] Performed By: #### E SRCRP, *DERRICK, CCP, RHF #### [facility] [address] [facility], [address] SED RATE WEST. 12 MM/HR Normal (0 - 24) [facility] Comment on above: Order Comment: FACIL ITY: [facility] [id number] Performed By: #### E SRCRP, *DERRICK, CCP, RHF #### [facility] [address] [facility], [address] Automated basophil %on 02-11 Basophils/100 WBC (Bld) 0.7 % [facility] Automated basophil counton 0 02-11-2021 Basophils (Bld) [#/Vol] 0.1 10*3/uL 0.0-0.2 [facility] Automated blood lymphocyte c ount (number/volume)on 02-11-2021 Lymphocytes (Bld) [#/Vol] 2.4 10*3/uL 1.00-4.8 [facility] Automated blood lymphocyte c ount as percentage of total leukocyteson 02-11-2021 Lymphocytes/100 WBC (Bld) 26.7 % [facility] Automated blood monocyte cou nton 02-11-2021 Monocytes (Bld) [#/Vol] 0.8 10*3/uL 0.0-0.8 [facility] Automated blood platelet cou nt (count/volume)on 02-11-2021 Platelets (Bld) [#/Vol] 201 10*3/uL 150-450 [facility] Automated blood platelet frank n volume measurementon 02-11-2021 Platelet mean volume (Bld) [Entitic vol] 8.7 fL 6.6-10.1 [facility] Automated eosinophil %on Eosinophils/100 WBC (Bld) 6.3 % [facility] Automated eosinophil counton 02-11-2021 Eosinophils (Bld) [#/Vol] 0.6 10*3/uL 0.0-0.45 [facility] Automated erythrocyte distri bution width ratioon 02-11-2021 Erythrocyte distribution width (RBC) [Ratio] 14.3 % 12.0-14.8 [facility] Automated erythrocyte mean c orpuscular hemoglobin (mass per erythrocyte)on 02-11-2021 MCH (RBC) [Entitic mass] 29.2 pg 27.5-35.2 [facility] Automated erythrocyte mean c orpuscular hemoglobin concentration measurement (mass/volon 02-11-2021 MCHC (RBC) [Mass/Vol] 34.4 g/dL 32.5-35.6 [facility] Automated erythrocyte mean c orpuscular volumeon 02-11-2021 MCV (RBC) [Entitic vol] 84.8 fL 83.5-101 [facility] Automated monocyte %on 02-11 Monocytes/100 WBC (Bld) 8.8 % [facility] Automated neutrophil %on Neutrophils/100 WBC (Bld) 57.5 % [facility] Blood erythrocytes automated count (number/volume)on 02-11-2021 RBC (Bld) [#/Vol] 5.54 10*6/uL 3.90-5.60 [facility] Blood hemoglobin measurement (mass/volume)on 02-11-2021 Hemoglobin (Bld) [Mass/Vol] 16.2 g/dL 13.0-17.0 [facility] Blood leukocytes automated c ount (number/volume)on 02-11-2021 WBC (Bld) [#/Vol] 9.0 10*3/uL 4.1-10.5 [facility] Blood neutrophil count by au tomated method (number/volume)on 02-11-2021 Neutrophils (Bld) [#/Vol] 5.2 10*3/uL 1.8-7.7 [facility] Estimated glomerular filtrat ion rate (GFR) non- Americanon 02-11-2021 GFR/1.73 sq M predicted among non-blacks MDRD (S/P/Bld) [Vol rate/Area] > 60 mL/Min [facility] Hematocrit [Volume Fraction] of Blood by Automated counton 02-11-2021 Hematocrit (Bld) [Volume fraction] 47.0 % 38.8-50.0 [facility] Otheron 02-11-2021 GFR/1.73 sq M.predicted MDRD (S/P/Bld) [Vol rate/Area] > 60 mL/Min [facility] Comment on above: GFR estimated refere nce range: According to KDOQI guidelines, <60 ml/min/1.73m2 is sufficient to diagnose a patient with chronic kidney disease. Nucleated RBC/100 WBC (Bld) [Ratio] 0.3 % 0-0.5 [facility] Creatinine Clearance (Chem N/A [facility] Serum or plasma calcium fazal urement (mass/volume)on 02-11-2021 Calcium [Mass/Vol] 9.0 mg/dL 8.2-10.2 [facility] Serum or plasma chloride frank surement (moles/volume)on 02-11-2021 Chloride [Moles/Vol] 104 mmol/L 95-114 [facility] Serum or plasma creatinine m easurement with calculation of estimated glomerular filtron 02-11-2021 Creatinine [Mass/Vol] 0.77 mg/dL 0.64-1.27 [facility] Serum or plasma glucose fazal urement (mass/volume)on 02-11-2021 Glucose [Mass/Vol] 89 mg/dL 70-100 [facility] Comment on above: ADA recommended refe rence rangeRandom Glucose Reference Range is dependent on time and content of last meal. Glucose of more than 200 mg/dL in a nonstressed, ambulatory subject supports the diagnosis of Diabetes Mellitus. Serum or plasma potassium me asurement (moles/volume)on 02-11-2021 Potassium [Moles/Vol] 3.8 mmol/L 3.5-5.1 [facility] Serum or plasma sodium measu rement (moles/volume)on 02-11-2021 Sodium [Moles/Vol] 135 mmol/L 136-146 [facility] Serum or plasma total carbon dioxide measurement (moles/volume)on 02-11-2021 CO2 [Moles/Vol] 22.9 mmol/L 22.0-30.0 [facility] Serum or plasma urea nitroge n measurement (mass/volume)on 02-11-2021 Urea nitrogen [Mass/Vol] 11 mg/dL 9- [facility] COVID-19 Positive/Negativeon 01-14-2021 COVID-19 Positive/Negative Positive Negative [facility] Comment on above: Critical valueresult calledat 2138 on 01/14/21Testing for SARS-CoV-2 by RT-PCRThis test was developed and its performance characteristics determined by [employer] and validated at the [facility]. This test has not been FDA [...] Otheron 01-14-2021 Coronavirus 2019 PCR Interp N/A [facility] Automated basophil %on 01-10 Basophils/100 WBC (Bld) 0.4 % [facility] Automated basophil counton 0 01-10-2021 Basophils (Bld) [#/Vol] 0.0 10*3/uL 0.0-0.2 [facility] Automated blood lymphocyte c ount (number/volume)on 01-10-2021 Lymphocytes (Bld) [#/Vol] 2.2 10*3/uL 1.00-4.8 [facility] Automated blood lymphocyte c ount as percentage of total leukocyteson 01-10-2021 Lymphocytes/100 WBC (Bld) 25.0 % [facility] Automated blood monocyte cou nton 01-10-2021 Monocytes (Bld) [#/Vol] 0.8 10*3/uL 0.0-0.8 [facility] Automated blood platelet cou nt (count/volume)on 01-10-2021 Platelets (Bld) [#/Vol] 226 10*3/uL 150-450 [facility] Automated blood platelet frank n volume measurementon 01-10-2021 Platelet mean volume (Bld) [Entitic vol] 9.4 fL 6.6-10.1 [facility] Automated eosinophil %on Eosinophils/100 WBC (Bld) 5.0 % [facility] Automated eosinophil counton 01-10-2021 Eosinophils (Bld) [#/Vol] 0.4 10*3/uL 0.0-0.45 [facility] Automated erythrocyte distri bution width ratioon 01-10-2021 Erythrocyte distribution width (RBC) [Ratio] 14.5 % 12.0-14.8 [facility] Automated erythrocyte mean c orpuscular hemoglobin (mass per erythrocyte)on 01-10-2021 MCH (RBC) [Entitic mass] 28.9 pg 27.5-35.2 [facility] Automated erythrocyte mean c orpuscular hemoglobin concentration measurement (mass/volon 01-10-2021 MCHC (RBC) [Mass/Vol] 34.3 g/dL 32.5-35.6 [facility] Automated erythrocyte mean c orpuscular volumeon 01-10-2021 MCV (RBC) [Entitic vol] 84.2 fL 83.5-101 [facility] Automated monocyte %on 01-10 Monocytes/100 WBC (Bld) 8.7 % [facility] Automated neutrophil %on Neutrophils/100 WBC (Bld) 60.9 % [facility] Blood erythrocytes automated count (number/volume)on 01-10-2021 RBC (Bld) [#/Vol] 5.59 10*6/uL 3.90-5.60 [facility] Blood hemoglobin measurement (mass/volume)on 01-10-2021 Hemoglobin (Bld) [Mass/Vol] 16.1 g/dL 13.0-17.0 [facility] Blood leukocytes automated c ount (number/volume)on 01-10-2021 WBC (Bld) [#/Vol] 8.6 10*3/uL 4.1-10.5 [facility] Blood neutrophil count by au tomated method (number/volume)on 01-10-2021 Neutrophils (Bld) [#/Vol] 5.3 10*3/uL 1.8-7.7 [facility] Estimated glomerular filtrat ion rate (GFR) non- Americanon 01-10-2021 GFR/1.73 sq M predicted among non-blacks MDRD (S/P/Bld) [Vol rate/Area] mL/min/{1.73_m2} [facility] Hematocrit [Volume Fraction] of Blood by Automated counton 01-10-2021 Hematocrit (Bld) [Volume fraction] 47.0 % 38.8-50.0 [facility] Otheron 01-10-2021 GFR/1.73 sq M.predicted MDRD (S/P/Bld) [Vol rate/Area] mL/min/{1.73_m2} [facility] Comment on above: GFR estimated refere nce range: According to KDOQI guidelines, <60 ml/min/1.73m2 is sufficient to diagnose a patient with chronic kidney disease. Nucleated RBC/100 WBC (Bld) [Ratio] 0.3 % 0-0.5 [facility] Creatinine Clearance (Chem N/A [facility] Serum or plasma calcium fazal urement (mass/volume)on 01-10-2021 Calcium [Mass/Vol] 9.2 mg/dL 8.2-10.2 [facility] Serum or plasma chloride frank surement (moles/volume)on 01-10-2021 Chloride [Moles/Vol] 106 mmol/L 95-114 [facility] Serum or plasma creatinine m easurement with calculation of estimated glomerular filtron 01-10-2021 Creatinine [Mass/Vol] 0.80 mg/dL 0.64-1.27 [facility] Serum or plasma glucose fazal urement (mass/volume)on 01-10-2021 Glucose [Mass/Vol] 99 mg/dL 70-100 [facility] Comment on above: ADA recommended refe rence rangeRandom Glucose Reference Range is dependent on time and content of last meal. Glucose of more than 200 mg/dL in a nonstressed, ambulatory subject supports the diagnosis of Diabetes Mellitus. Serum or plasma potassium me asurement (moles/volume)on 01-10-2021 Potassium [Moles/Vol] 4.0 mmol/L 3.5-5.1 [facility] Serum or plasma sodium measu rement (moles/volume)on 01-10-2021 Sodium [Moles/Vol] 139 mmol/L 136-146 [facility] Serum or plasma total carbon dioxide measurement (moles/volume)on 01-10-2021 CO2 [Moles/Vol] 22.9 mmol/L 22.0-30.0 [facility] Serum or plasma urea nitroge n measurement (mass/volume)on 01-10-2021 Urea nitrogen [Mass/Vol] 10 mg/dL 9- [facility] Vital Signs Date Time Vital Sign Value Performing Clinician Facility 12-27-2023 13:39-0500 Body mass index (BMI) [Ratio] 33.61 kg/m2 Jeyson Elin-Nossek DATA CENTER MANAGER-WEATHERIZATION SPECIALIST Work Phone: [facility] 12-27-2023 13:39-0500 Body weight 109.32 kg Jeyson Elin-Nossek DATA CENTER MANAGER-WEATHERIZATION SPECIALIST Work Phone: [facility] 12-27-2023 13:39-0500 Diastolic blood pressure 48 mm[Hg] Jeyson Elin-Nossek DATA CENTER MANAGER-WEATHERIZATION SPECIALIST Work Phone: [facility] 12-27-2023 13:39-0500 Heart rate 68 /min Jeyson Elin-Nossek DATA CENTER MANAGER-WEATHERIZATION SPECIALIST Work Phone: [facility] 12-27-2023 13:39-0500 Systolic blood pressure 90 mm[Hg] Jeyson Elin-Nossek DATA CENTER MANAGER-WEATHERIZATION SPECIALIST Work Phone: [facility] 03-13-2023 14:00-0400 Body height 182.88 cm Colt Scovanner Other [facility] Other 03-13-2023 14:00-0400 Body mass index (BMI) [Ratio] 34.17 kg/m2 Colt Scovanner Other [facility] Other 03-13-2023 14:00-0400 Body weight 114.31 kg Colt Scovanner Other [facility] Other 03-13-2023 14:00-0400 Diastolic blood pressure 80 mm[Hg] Colt Scovanner Other [facility] Other 03-13-2023 14:00-0400 Systolic blood pressure 141 mm[Hg] Colt Scovanner Other [facility] Other 12-11-2022 09:50-0500 Diastolic blood pressure 66 mm[Hg] MD Charlie Rea Work Phone: [facility] 12-11-2022 09:50-0500 Heart rate 63 /min MD Charlie Rea Work Phone: [facility] 12-11-2022 09:50-0500 Respiratory rate 20 /min MD Charlie Rea Work Phone: [facility] 12-11-2022 09:50-0500 SaO2% (BldA) [Mass fraction] 100 % MD Charlie Rea Work Phone: [facility] 12-11-2022 09:50-0500 Systolic blood pressure 113 mm[Hg] MD Charlie Rea Work Phone: [facility] 12-11-2022 08:35-0500 Body height 180.34 cm MD Charlie Rea Work Phone: [facility] 12-11-2022 08:35-0500 Body temperature 99 [degF] MD Charlie Rea Work Phone: [facility] 12-11-2022 08:35-0500 Body weight 114.3 kg MD Charlie Rea Work Phone: [facility] 09-14-2022 15:30-0400 Body height 182.88 cm Feliciano Hodge Other [facility] [employer] Other 09-14-2022 15:30-0400 Body mass index (BMI) [Ratio] 36.48 kg/m2 Feliciano Hodge Other [facility] [employer] Other 09-14-2022 15:30-0400 Body weight 122.02 kg Feliciano Hodge Other [facility] [employer] Other 09-14-2022 15:30-0400 Diastolic blood pressure 79 mm[Hg] Feliciano Kunalangelica Other [facility] [facility] [employer] Other 09-14-2022 15:30-0400 Systolic blood pressure 151 mm[Hg] Feliciano Kunalangelica Other [facility] [facility] [employer] Other 09-10-2022 07:30-0400 Body temperature 97.5 [degF] MD Gala Joseph Work Phone: [facility] 09-10-2022 07:30-0400 Diastolic blood pressure 98 mm[Hg] MD Gala Joseph Work Phone: [facility] 09-10-2022 07:30-0400 Heart rate 94 /min MD Gala Joseph Work Phone: [facility] 09-10-2022 07:30-0400 SaO2% (BldA) [Mass fraction] 100 % MD Gala Joseph Work Phone: [facility] 09-10-2022 07:30-0400 Systolic blood pressure 152 mm[Hg] MD Gala Joseph Work Phone: [facility] 09-09-2022 20:43-0400 Respiratory rate 16 /min MD Gala Joseph Work Phone: [facility] 09-08-2022 10:55-0400 Body height 180.34 cm MD Gala Joseph Work Phone: [facility] 09-08-2022 10:55-0400 Body weight 120.85 kg MD Gala Joseph Work Phone: [facility] 10-25-2021 14:40-0500 Body height 182.88 cm Cesario Alejandre Other [employer] Other 10-25-2021 14:40-0500 Body mass index (BMI) [Ratio] 41.9 kg/m2 Cesario Alejandre Other [employer] Other 10-25-2021 14:40-0500 Body weight 140.16 kg Cesario Alejandre Other [facility] Other 08-30-2021 15:40-0400 Body height 182.88 cm Cesario Alejandre Other [facility] Other 08-30-2021 15:40-0400 Body mass index (BMI) [Ratio] 41.9 kg/m2 Cesario Alejandre Other [facility] Other 08-30-2021 15:40-0400 Body weight 140.16 kg Cesario Alejandre Other [facility] Other 08-30-2021 15:40-0400 Diastolic blood pressure 72 mm[Hg] Cesario Alejandre Other [facility] Other 08-30-2021 15:40-0400 Systolic blood pressure 137 mm[Hg] Cesario Alejandre Other [facility] Other 01-17-2021 04:45-0500 BMI (Body Mass Index) 41.2 kg/m2 [facility] 01-17-2021 04:45-0500 Body Temperature 98.4 [degF] [facility] 01-17-2021 04:45-0500 Body weight 134 kg [facility] 01-17-2021 04:45-0500 BP Diastolic 73 mm[Hg] [facility] 01-17-2021 04:45-0500 BP Systolic 119 mm[Hg] [facility] 01-17-2021 04:45-0500 Height 180.34 cm [facility] 01-17-2021 04:45-0500 Pulse (Heart Rate) 88 /min [facility] 01-17-2021 04:45-0500 Pulse Oximetry 98 % [facility] 01-17-2021 04:45-0500 Respiratory Rate 18 /min [facility] Encounters Encounter Date Encounter Type Care Provider Facility Start: 12-31-2023 Telephone encounter [facility] Start: 12-27-2023 End: 12-27-2023 ambulatory JEYSON CALLAWAY Not Available Start: 12-27-2023 End: 12-27-2023 Office outpatient visit 25 minutes Jeyson Callaway DATA CENTER MANAGER-WEATHERIZATION SPECIALIST Work Phone: [facility] Comment on above: Bipolar II disorder (CMS/HCC); Insomnia due to mental condition Start: 12-26-2023 End: 12-26-2023 ambulatory ANNAMARIE LAY Not Available Start: 12-26-2023 Bamboo flowsheet Annamarie Parekh ll [facility] Work Phone: [facility] Start: 12-26-2023 Bamboo flowsheet Annamarie Parekh ll [facility] Work Phone: [facility] Start: 12-19-2023 End: 12-20-2023 ambulatory [facility] Start: 12-18-2023 End: 12-18-2023 ambulatory CHARLIE REA Not Available Start: 12-10-2023 End: 12-10-2023 ambulatory ANNAMARIE LAY Not Available Start: 11-29-2023 End: 12-31-2023 amb[address]ISA BOSTON [facility] Start: 11-28-2023 Telephone encounter Nat [facility] Start: 11-23-2023 Chart abstracting Scanning Pro vider External [facility] Start: 10-31-2023 End: 11-01-2023 ambulatory ANTONIO W AWAD Not Available Start: 10-29-2023 End: 10-29-2023 ambulatory ANTONIO W AWAD Not Available Start: 10-17-2023 End: 10-17-2023 ambulatory ANTONIO W AWAD Not Available Start: 10-03-2023 End: 10-03-2023 ambulatory ANNAMARIE LAY Not Available Start: 10-01-2023 End: 10-01-2023 ambulatory CHARLIE REA Not Available Start: 04-05-2023 ambulatory SOLOMON PEREZ . Facili ty:[facility] Start: 03-23-[address] CHARLIE REA Facility :[facility] Start: 03-13-2023 End: 03-13-2023 ambulatory Colt Painting Other [facility] Other Start: 03-13-2023 Office outpatient ne w [...] Start: 12-11-2022 End: 12-11-2022 ambulatory Feliciano Hodge Facility:[facility] Start: 12-11-2022 End: 12-11-2022 Admission to same day surgery center MD Charlie Rea Work Phone: [facility] Work Phone: Start: 12-11-2022 End: 12-11-2022 ambulatory MD Charlie Rea Work Phone: [facility] Work Phone: Start: 12-06-2022 End: 12-07-[address] CHARLIE REA Facility:[facility] Start: 11-28-2022 End: 11-28-[address] CHARLIE REA Facility:[facility] Start: 11-02-2022 End: 11-03-[address] CHARLIE REA Facility:[facility] Start: 09-19-2022 End: 09-19-[address] GALA JOSEPH Facility:[facility] Start: 09-14-2022 End: 09-14-2022 ambulatory Feliciano oHdge Other [employer] Other Start: 09-14-2022 [facility] visit new patient Feliciano Hodge [facility] Start: 09-11-2022 End: 09-12-[address] GALA JOSEPH Facility:[facility] Start: 09-08-2022 End: 09-10-2022 ambulatory Gala Joseph Facility:[facility] Start: 09-08-2022 End: 09-10-2022 Evaluation and management of inpatient MD Gala Joseph Work Phone: [facility] [place] [address] Start: 09-06-2022 End: 09-06-[address] GALA JOSEPH Facility:[facility] Start: 09-05-2022 End: 09-06-[address] KEVIN ACOSTA . Facility:[facility] Start: 09-02-2022 End: 09-02-[address] PATRICIA VALENZUELA Facility:[facility] Start: 10-25-2021 End: 10-25-2021 ambulatory Cesario Alejandre Other [facility] Other Start: 10-25-2021 Office outpatient visit 15 minutes Cesario Alejandre [facility] Start: 08-30-2021 Office outpatient visit 25 minutes Cesario Alejandre [facility] Start: 02-11-2021 End: 02-11-2021 Patient encounter procedure Cesario Alejandre -Pre-Surgical Testing Start: 01-17-2021 End: 01-17-2021 Admission to day surgery Cesario Alejandre -Surgery [facility] Start: 01-14-2021 End: 01-14-2021 Patient encounter procedure Cesario Alejandre -Pre-Surgical Testing Start: 01-10-2021 End: 01-10-2021 Patient encounter procedure Cesario Alejandre -Pre-Surgical Testing Procedures Date Procedure Procedure Detail Performing Clinician Start: 12-11-2022 Esophagogastroduodenoscopy MD Charlie romero Work Phone: Start: 12-11-2022 Colonoscopy Annamarie Lay [facility] Work Phone: Start: 09-08-2022 CT of abdomen and pelvis without contrast MD Gala Joseph Work Phone: Start: 08-29-2022 Adult depression screening assessment Scanning External Start: 07-14-2022 Cyclic citrullinated peptide antibody Comment on above: Performed By: #### ESRCRP, *DERRICK, CCP, RH F #### [facility] [address] [facility], [address] Start: 01-17-2021 OR Cervical Fusion Anterior (Not Applicable) Cesario Alejandre Plan of Treatment Date Care Activity Detail Author Start: 12-11-2032 Screening for malignant neoplasm of colon [facility] Start: 03-03-2025 DTaP,Tdap and Td Vaccines (3 - Td or Tdap) DTaP,Tdap and Td Vaccines (3 - Td or Tdap) [facility] Start: 11-29-2024 Adult BMI Screening Adult BMI Screen ing [facility] Start: 11-29-2024 Tobacco Screening Tobacco Screening [facility] Start: 06-25-2024 End: 06-25-2024 Patient encounter procedure 06/25/2024 1:30 PM EDT Office Visit [facility] [address] [place] [address] Charlie Rea MD [address] [place] [address] [facility] Start: 05-08-2024 Adult BMI Screening Adult BMI Screen ing [facility] Start: 05-08-2024 Tobacco Screening Tobacco Screening [facility] Start: 02-11-2024 End: 02-11-2024 Patient encounter procedure 02/11/2024 11:45 AM EDT Appointment [facility] [address] [place] [id number] Lisa Boston MD [address] [place] [address] [facility] Start: 02-11-2024 End: 02-11-2024 Patient encounter procedure [facility] Start: 02-11-2024 End: 02-11-2024 Patient encounter procedure [facility] Start: 01-14-2024 End: 01-14-2024 Clinical Support 01/14/2024 5:00 PM EST Clinical Support [facility] [address] [place] [address] Annamarie Lay, [facility] [address] [place] [address] [facility] Start: 12-26-2023 End: 12-26-2023 Clinical Support 12/26/2023 4:00 PM EST Clinical Support [facility] [address] [place] [id number] Annamarie Lay, [facility] [address] [place] [address] Arrived [facility] Comment on above: Arrived Start: 11-29-2023 End: 11-29-2023 Patient encounter procedure 11/29/2023 1:30 PM EST Office Visit [facility] [address] [place] [address] Lisa Boston MD [address] [place] [address] [facility] Start: 08-29-2023 Depression Screening Depression Scre ening [facility] Start: 07-20-2023 Influenza vaccination Influenza Vacc ine [facility] Start: 12-11-2022 [facility] Start: 09-10-2022 [facility] [facility] Start: 09-08-2022 Referral to clinical radiocommunications technician [facility] Start: 09-08-2022 Hospital admission [facility] Start: 1995 Adult BMI Follow Up Plan Adult BMI Follow Up Plan [facility] Start: 1975 Screening for malignant neoplasm of colon [facility] Patient Education [facility] Work Phone: Patient referral [facility] Work Phone: Immunizations Immunization Date Immunization Notes Care Provider [facility] 12-18-2023 Influenza, injectabl e, Madin [place] Canine Kidney, preservative free, quadrivalent [facility]arie Lay [facility] Work Phone: [facility] 10-25-2022 Influenza, injectabl e, Madin [place] Canine Kidney, preservative free, quadrivalent Annamarie Lay [facility] Work Phone: [facility] 10-25-2022 influenza virus vaccine, unspecified formulation Scanning External [facility] 03-03-2015 tetanus toxoid, redu emmanuel diphtheria toxoid, and acellular pertussis vaccine, adsorbed Scanning External [facility] 06-15-2009 tetanus toxoid, redu emmanuel diphtheria toxoid, and acellular pertussis vaccine, adsorbed Scanning [facility] Payers Date Payer Category Payer Self-pay [id number] 2020 Medicaid [id number] 1977 Unknown [id number] 2.16.84 0.1.280344.3.579.2.593 1977 Unknown [id number] 2.16.84 0.1.894297.3.579.2.593 1977 Unknown [id number] 2.16.84 0.1.741223.3.579.2.593 1977 Unknown [id number] 2.16.84 0.1.642273.3.579.2.593 1977 Unknown [id number] 2.16.84 0.1.769445.3.579.2.593 1977 Unknown [id number] 2.16.84 0.1.739155.3.579.2.593 1977 Unknown [id number] 2.16.84 0.1.550885.3.579.2.593 1977 Unknown [id number] 2.16.84 0.1.438741.3.579.2.593 1977 Unknown [id number] 2.16.84 0.1.763669.3.579.2.593 1977 Unknown [id number] 2.16.84 0.1.619668.3.579.2.593 1977 Unknown [id number] 2.16.84 0.1.796483.3.579.2.593 1977 Unknown [id number] 2.16.84 0.1.806100.3.579.2.593 1977 Unknown [id number] 2.16.84 0.1.768284.3.579.2.593 1977 Unknown [id number] 2.16.84 0.1.909474.3.579.2.593 1977 Unknown [id number] 2.16.84 0.1.704208.3.579.2.1259 1977 Unknown [id number] 2.16.84 0.1.490966.3.579.2.1259 1977 Unknown [id number] 2.16.84 0.1.164936.3.579.2.1259 1977 Unknown [id number] 2.16.84 0.1.895647.3.579.2.1259 1977 Unknown [id number] 2.16.840 .1.709885.3.579.2.1259 1977 Unknown [id number] 2.16.840 .1.733346.3.579.2.1259 1977 Unknown [id number] 2.16.840 .1.265000.3.579.2.9 1977 Unknown [id number] 2.16.840 .1.822311.3.579.2.9 1977 Unknown [id number] 2.16.840. 1.967816.3.579.2.9 1977 Unknown [id number] 2.16.8 40.1.467771.3.579.2.1286 1977 Unknown [id number] 2.16.8 40.1.539849.3.579.2.1286 1977 Unknown [id number] 2.16.84 0.1.480425.3.579.2.1286 1959 Unknown [id number] Unknown [id number] Unknown [employer] [id number] Unknown [id number] 2.16.8 40.1.410692.3.579.2.531 Unknown [id number] 2.16.8 40.1.366362.3.579.2.531 Social History Date Type Detail Facility Start: 01-10-2021 End: 09-07-2022 Tobacco smoking status NHIS Ex-smoker (finding) [facility] Start: 1975 Sex Assigned At Male F [facility] Start: 08-29-2022 End: 11-29-2023 Sex Assigned At [facility] Start: 11-19-1990 End: 11-19-2008 History of tobacco use Current smoker [facility] Start: 11-19-1990 End: 11-19-2008 History of tobacco use Cigarette Smoker [facility] Start: 09-07-2022 Tobacco use and exposure Forme r smokeless tobacco user [facility] Start: 11-23-2023 End: 11-29-2023 Alcohol intake Ex-drinker (finding) [facility] Start: 08-29-2022 End: 11-23-2023 Alcohol intake [facility] Do you belong to any clubs or organizations such as mormon groups, unions, fraternal or athletic groups, or school groups? No [facility] Attends Club or Organization Meetings Not on file [facility] Are you now , , , , never or living with a partner? Living with partner [facility] How often to you hav e a drink containing alcohol? Monthly or less [facility] How many standard dr inks containing alcohol do you have on a typical day? 1 or 2 [facility] How often do you hav e 6 or more drinks on 1 occasion? Less than monthly [facility] How hard is it for y ou to pay for the very basics like food, housing, medical care, and heating Somewhat hard [facility] Do you feel stress - tense, restless, nervous, or anxious, or unable to sleep at night because your mind is troubled all the time - these days [OSQ] Very much [facility] Start: 08-29-2022 Education 21 [facility] Start: 1975 Sex Assigned At Not on file P [facility] Start: 08-06-2023 Tobacco use and exposure Smoke less tobacco non-user [facility] Start: 06-08-2023 Tobacco Comment Ex-cigarette smoker [facility] Start: 12-18-2023 Alcohol Comment Caffeine: tea daily , coffee seldom, pop, 1-2 weekly [facility] Medical Equipment Procedure Code Equipment Code Equipment Origin al Text Equipment Identifier Dates Spinal fixation plate, non-bioabsorbable ()[id number] FDA Start: 02-21-2021 Spinal fixation plate, non-bioabsorbable ()[id number] FDA Start: 02-21-2021 Intervertebral-b mandy internal spinal fixation system ()[id number] FDA Start: 02-21-2021 Intervertebral-b mandy internal spinal fixation system ()[id number] FDA Start: 02-21-2021 Goals Date Patient Goal Desired Activity /State Functional Status Date Assessment Result Facility 09-10-2022 Functional status Patient at Baseline [facility] Work Phone: Mental Status Date Assessment Result Facility 09-10-2022 Cognitive function Cognitive Sta tus Patient at Baseline [facility] Work Phone: Clinical Notes 08-30-2021 to 12-31-2023 Telephone Encounter - Natasha Connolly RN - 12/31/2023 3:19 PM ESTTelephone Encounter - Natasha Connolly RN - 12/31/2023 3:19 PM Julio Callaway APRN-WEATHERIZATION SPECIALIST - 12/27/2023 1:30 PM EST Note Date & Type Note Facility 12-31-2023 Miscellaneous Notes Formattin g of this note might be different from the original. Pt returned call. Had asked why Echo/ LCTME hadn't been scheduled. Pt provided cent. Scheduling phone number to schedule documented in this encounter [facility] 12-31-2023 Telephone encount er Note Pt returned call. Had asked why Echo/ LCTME hadn't been scheduled. Pt provided cent. [facility] 12-27-2023 History of Presen t illness Narrative Images from the original note were not included. Magnus García 47 Y old Male,: 1975 [address], [id number] Home: Guarantor:Magnus García Insurance:[employer] Medicaid History of Present Illness This is a medication management appt. Reports his mood is a little down. Mostly related to relationship and physical limitations. Had an Xray and states he has some degenerations. States he is having tremors and was put on primodone and couldn't tolerated. Happy marijuana passed. Uses 2-3 times a week. Discussed risks of marijuana use and would not be able to give him lorazepam. Mood is reported as depressed and rates 5-6 (10worst). States that he does have more good days and at times outstanding. Times feels anxious and ranges 3 (10worst). States hasn't needed to take ativan because using alternative coping. Takes ativan once in a while. Patient is unemployed for three years. States trying to get a job. Has a hearing Sleeping 5-6 hours. Since on CPAP. Medication compliant. No reported side effects. Uses marijuana daily. Was put on baclofen for muscle relaxant for fibromyalgia, neuropathy. Multiple medical problems. Welfare Worker put him on advair. Stressors include physical problems. Suspecting is cheating. Upsets him when family fighting. Verbalizes multiple stressors with the marriage. Past Medical History Generalized anxiety disorder. Arthritis. Asthma. Bronchitis. Liver disease. Migraine headaches. Pneumonia. Psychiatric care. Surgical History C5-6 Fusion - Dr. Alejandre 02/2021 RT SHOULDER SCOPE PER DR AMARAL 09/13/21 EGD/Colonoscopy 12/11/2022 Family History Father: 55 yrs, diagnosed with Diabetes Mother: alive 68 yrs, diagnosed with Diabetes, cholesterol, Mental Illness, arthritis Siblings: diagnosed with Cancer 1 brother(s) , 1 sister(s) . 2 daughter(s) . Social History Miscellaneous: Caffeine: < 1 per week , tea , coffee seldom. Children: 2 daughters. Living with: significant other- 2 daughters. Marital status Marital Status: single Occupation: Unemployed. former smoker 2006; 0 caffeine. Allergies Penicillin Sulfa Antibiotics Cymbalta Voltaren: sob, anxiety - Side Effects Lyrica: Allergy NSAIDs: difficulty breathing - Allergy Vistaril: difficulty breathing Hospitalization/Major Diagnostic Procedure [place] [facility] [place] [facility] thoughts x 3 days 09/09 Examination Psychiatry: APPEARANCE:appears stated age obese . ABNORMAL BODY MOVEMENTS:none . AFFECT: constricted . AGGRESSION:low . ANGER CONTROL:low . ATTENTION:poor . ATTITUDE:cooperative . CURRENT HOMICIDALITY:none . CURRENT SUICIDALITY:not presently . DEGREE OF AWARENESS OF SURROUNDINGS:within normal limits . IMPULSE CONTROL:poor at times. INSIGHT:fair-poor . INTELLIGENCE (estimate):below average . JUDGEMENT:poor . MOOD:mild depression mild anxiety. ORIENTATION:yes x 3 . PERCEPTUAL DISORDERS:reports visual hallucinations-shadows. PSYCHOMOTOR ACTIVITY:within normal range . SEXUAL IMPULSE CONTROL:good . SPEECH: talkative rapid clear . THOUGHT CONTENT:unremarkable, somatic . THOUGHT PROCESS:intact . MEMORY:Immediate Recent Remote-intact. Assessments 1. Generalized anxiety disorder - F41.1 2. Panic disorder - F41.0 3. Bipolar II disorder - F31.81, RULE OUT, Risk: Med 4. Cannabis abuse daily F12.10 Treatment Continue seroquel to target mood zoloft 100mg bid Seroquel 100mg to augment antidepressant. Ativan prn severe anxiety .25 or 0.5mg prn. Sees pain management. Trazadone 50mg 1-2 tabs at hs F/U 8 weeks Face to face/documentation/review of record-35min . Migule [address] [address] documented in this encounter [facility] 11-28-2023 Miscellaneous Notes Formattin g of this note might be different from the original. Left message for patient to remind them to bring their most current medication list with them to their appointment. documented in this encounter [facility] 11-28-2023 Telephone encount er Note Left message for patient to remind them to bring their most current medication list with them to their appointment. [facility] 03-13-2023 Evaluation note Encounter Date Diagnosis Assessment [...] MiraLAX as it is a nonstimulating laxative. vivio Other 03-30-2023 NoteCONSULTATION CONSULTATION DATE: 02/15/2023 TO: [...] His BLANCA on today's visit is 42.[facility] 01-25-2023 NoteCONSULTATION CONSULTATION DATE: 01/25/2023 HISTORY OF [...] followed up in the clinic post procedure.[facility] 12-11-2022 [facility]23 Note CONSULTATION CONSULTATION DATE: 12/06/2022 HISTORY OF [...] followed up in the clinic post procedure.[facility] [id number] NoteCONSULTATION CONSULTATION DATE: 11/02/2022 HISTORY OF PRESENT [...] be followed up in the office thereafter.[facility] [id number] Evaluation note* Encounter Date Diagnosis Assessment Notes Treatment Notes Treatment Clinical Notes Aug, Alternating constipation and diarrhea (ICD-10 - R19.8) Aug, Rectal bleeding (ICD-10 - K62.5) [employer] Other 10-23-2022 Discharge summary Author Red Cameron [facility] September 10, 2022 11:06am Note Date/Time September 10, 2022 1 1:04am [facility] [address] [place] [address] Discharge Summary Signed Patient: Magnus García MR#: [id number] : 1975 Acct:[id number] Age/Sex: 47 / M Adm Date: 2 Loc: Room: [address] [place] [address]: Red Cameron MD Copies to: [...] 47 year old male who presented due [facility] for depression and suicidal ideation. Upon assessment, [...] Instructions: Depression, Adult (DC), Anxiety, Adult (DC), [facility] DC Instructions Prescriptions: New gabapentin [...] tablet 600 mg PO TID Follow Up: [facility] [Outside] [facility] [Outside] - 09/11/22 9:15 am (You have a follow-up telehealth appointment with [facility] in [place] on Sunday, September 11, 2022 at 9:15am. A telehealth case manager will call you at the phone number you have provided. Additional appointments will be scheduled at this time.) Documented By: Red Cameron MD 09/10/221101 Signed By: <Electronically signed by Red Cameron MD> 09/10/221105 [facility] Work Phone: 1(562) 392-628110-22-2022 Progress note Author Pedrito Ignacio [facility] September 10, 2022 3:22pm Note Date/Time September 09, 2022 4 :47pm [facility] [address] [place], [place] [address] Hospitalist Progress Note Signed with Darwin Patient: Magnus García MR#: [id number] : 1975 Acct:[id number] Age/Sex: 47 / M Adm Date: 2 Loc: Room: [address] [place] [address] Type: ADM IN Attending Dr: Red Cameron [...] Propionate 1 spray 09/10/22 09:00 Fluticasone Propionate Sharon 120 Sharon/16 Gm Bottle INTRANASAL 09/10/23 08:59 DAILY BEV [...] team Documented By: Kaley Herman APRN 09/09/22 1644 Signed By: <Electronically signed by SIXTO Herman> 09/09/22 1732 [facility] Work Phone: 1(499) 542-458610-22-2022 Progress note Author Red Cameron [facility] September 09, 2022 12:33pm Note Date/Time September 09, 2022 1 2:33pm [facility] [address] [place] [address] Psychiatry Progress Note Signed Patient: Magnus García MR#: [id number] : 1975 Acct:[id number] Age/Sex: 47 / M Adm Date: 2 Loc: Room: [address] [place] [address] Type : ADM IN Attending Dr: Red [...] Risk benefits alternatives explained Documented By: Red aCmeron MD 09/09/22 1231 Signed By: <Electronically signed by Red Cameron MD> 09/09/22 1233 [facility] Work Phone: 1(539) 832-256810-21-2022 History and physical note Author Red Cameron [facility] September 08, 2022 2:11pm Note Date/Time September 08, 2022 2 :11pm [facility] [address] [place] [address] Psychiatry H&P Signed Patient: Magnus García MR#: [id number] : 1975 Acct:[id number] Age/Sex: 47 / M Adm Date: 2 Loc: 1S Room: [address] [place] [address] Type: ADM IN Attending Dr: Red Cameron [...] explained Documented By: Red Cameron MD 09/08/22 1404 Signed By: <Electronically signed by Red Cameron MD> 09/08/22 1411 [facility] Work Phone: 1(425) 359-564210-18-2022 NoteCONSULTATION CONSULTATION DATE: 09/05/2022 CHIEF COMPLAINT: Cervical [...] The patient also discusses multiple joint pain. 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 [...] like to proceed. CC: Gala Joseph M.D.[facility] [id number] Evaluation note* Encounter Date Diagnosis Assessment Notes [...] Carpal tunnel syndrome, right (ICD-10 - G56.01) vivio Other 10-12-2021 Evaluation note* Encounter Date Diagnosis [...] seperate identifiabale issues with seperate treatment plans [facility] [employer] Other evaluation note* Diagnosis Onset Date Resolution Status Abdominal pain acute Anxiety acute Depression acute [facility] Work Phone: Evaluation noteNo assessment information available [facility] Work Phone: Evaluation noteNo InformationNortH[facility] [employer] Social Other Evaluation note* Diagnosis Bipolar II disorder (CMS/[facility]) Other bipolar disorders Insomnia due to mental condition Unspecified nonpsychotic mental disorder documented in this encounter [facility] Author Feliciano Hodge [facility] December 11, 2022 9:06am Note Date/Time December 11, 2022 9 :06am [facility] [address] [place] [address] Gastroenterology H&P Signed Patient: Magnus García MR#: [id number] : 1975 Acct:[id number] Age/Sex: 47 / M Adm Date: 3 Loc: Room: Type: [facility] Attending Dr: Feliciano Hodge MD Copies to: MD Charlie Patrikc MD~ Date of Service: 12/11/2022 HISTORY & [...] Hodge MD Documented By: Feliciano Hodge MD 12/11/22 0905 Signed By: <Electronically signed by Feliciano Hodge MD> 12/11/22 0906 [facility] Work Phone: History general Narrative - Reported* Type Description Date Medical History Asthma, unspecified asthma severity, unspecified whether complicated, unspecified whether persistent Medical History Dysphagia, unspecified type Medical History Eccrine porocarcinoma of skin Surgical History EGD Surgical History skin cancer excision Hospitalization History see above vivio Other Hospital Discharge instructions Additional Instructions Regular diet. No activity restrictions.[facility] Work Phone: Hospital Discharge instructions Additional Instructions [...] NOT operate machinery such as power tools, [employer] mowers, snow blowers, sewing machines, etc. for [...] NOT operate machinery such as power tools, [employer] mowers, snow blowers, sewing machines, etc. for [...] a follow-up appointment for you -Start an ytse-bdg-zpifnaz acid medication such as Prilosec or Nexium, once daily -Continue fiber supplementation -Notify the doctor if you have any problems. -Repeat colonoscopy in 10 years. -Follow up with PCP. - Office number [phone].[facility] Work Phone: InstructionsNot on filedocumented in this encounter [employer] SystemInstructionsNot on filedocumented in this encounter [employer] SystemInstructionsNot on filedocumented in this encounter [facility] CenterIonLogix Systems Africa Interactive SystemReason for visit NarrativePATIENT HERE AT THE REQUEST OF DR. JOSEPH FOR EVALUATION & TREATMENT OF IBS W/BOTH CONSTIPATION AND DIARRHEA vivio Other Advance Directives No Advanced Directives Records [...] tunnel syndro me, right (G56.01) Referral Organization [facility] Referring Provider First Name Cesario Referring Provider Last Name Pili Referring Provider Specialty Neurologica l Surgery Referred Organization [facility] Referred Provider Jr Champagne Referred Address [address] [place], [place],[address] Referred Provider Specialty Neurology Referral Priority Routine General Notes [facility] 021 10:52:46 AM >Received today and waiting for office notes to be locked before sendingZaida Ulloa 09/06/2021 01:56:58 PM >Referral was fax Summary Purpose Additional Source Comments REASON FOR VISIT (unrecogniz ed section and content) Reason Comments Med Management (unrecognized sect ion and content) No Status Records FoundNo Status Records FoundNo Status Records FoundNo Status Records FoundNo Status Records Found INFORMATION SOURCE (unrecogn ized section and content) DATE CREATED AUTHOR 07/16/2022 [facility] DATE CREATED AUTHOR AUTHOR'S ORGANIZ ATION 12/18/2022 [facility] DATE CREATED AUTHOR AUTHOR'S ORGANIZ ATION 03/30/2023 [facility] DATE CREATED AUTHOR AUTHOR'S ORGANIZ ATION 12/27/2023 [facility] EPIC DATE CREATED AUTHOR AUTHOR'S ORGANIZ ATION [facility]/02/20[facility] Care Teams (unrecognized sec tion and content) Team Status: Inactive Member Role Status Dates Gala Joseph MD Primary Care Provider Active Red Cameron MD Admit Provider, Attending Provider Active Alysia Wiley RN Other Provider Active Cheryl Connor , KAREN Other Provider Active Paola Michelle , KAREN Other Provider Active Laura Floyd RN Other Provider Active Nahed Salmons , RN Other Provider Active Ellen Gaitan , KAREN Other Provider Active Maik Hopkins MD Other Provider Active Donnie Ramos MD Other Provider Active Ana Ochoa APRN Other Provider Active Katie Quintanilla , DO [...] MD Other Provider Active Sona Moore , HOTEL ADMINISTRATIVE ASSISTANT-C Other Provider Active Conor Jones MD Other Provider Active Christophe Martinez MD Other Provider Active Katie Sauceda MD Other Provider Active Alexander Clancy MD Other Provider Active Stephanie Medina , DO Other Provider Active Rashmi Wright MD Other Provider Active Husam Marcial , DO Other Provider Active Tank Sarah , DO Other Provider Active Kaley Herman APRN Other Provider Active Pedrito Ignacio , DO [...] Charlie Rea MD Primary Care Provider Active Glass Lathe Operator Relationship Specialty Start Date End Date Charlie Rea MD [address] [facility], [address] [place] [address] PCP - General Internal Medicine 01/04/23 Glass Lathe Operator Relationship Specialty Start Date End Date Charlie Rea MD [address] [facility], [address] [place] [address] PCP - General Internal Medicine 01/04/23 Glass Lathe Operator Relationship Specialty Start Date End Date Charlie Rea MD [address] [place] [address] PCP - General Internal Medicine 04/18/23 Antonio Awad MD [address] [place] [address] [address] [place] [address] Referring Physician Neurology 12/14/23 Annamarie Lay [facility] [address] [place] [address] [address] [place] [address] Behavioral Health 12/14/23 Glass Lathe Operator Relationship Specialty Start Date End Date Charlie Rea MD [address] [place] [address] PCP - General Internal Medicine 04/18/23 nAtonio Awad MD [address] [place] [address] [address] [place] [address] Referring Physician Neurology 12/14/23 Annamarie Lay [facility] [address] [place] [address] [address] [place] [address] Behavioral Health 12/14/23 Glass Lathe Operator Relationship Specialty Start Date End Date Charlie Rea MD [address] [place] [address], [address] [place] [address] PCP - General Internal Medicine 01/04/23 Goals [...] BE BASED ON THE PRIMARY CLINICAL RECORDS. [facility] [employer] [facility]. provides no warranty or guarantee of the accuracy or completeness of information in this document.
[2024-01-08 07:41] VITALS: BP 106/67; PULSE 71; RESP 16; TEMP 36.1; O2SAT 98
[2024-01-08 08:14] VITALS: BP 110/83; PULSE 72; RESP 18; O2SAT 94
[2024-01-08 08:17] VITALS: BP 113/70; PULSE 65; RESP 18; O2SAT 94
[2024-01-08] MEDS: BUPIVACAINE HCL 0.25% PF 25 MG/10 ML VIAL 2 ML INJ (08:18)
--- NOTE | 2024-01-08 08:54 | W.PM.PROCNOT ---
Date of procedure: 01/08/24 Pre-op diagnosis: Lumbar spondylosis Post-op diagnosis: same as pre-op Procedure: Left Lumbar 3/4, 4/5 medial branch block Under fluoroscopic guidance Solution injected: 2millilitersMarcaine 0.25% Anesthesia :none Immediate complications none Time out process compliant After informed consent obtained from the patient placed in the Prone proposition . area was prepped and draped in a sterile fashion using Cloraprep .25 gauge spinal needle inserted over each of the above mentioned target areas . Cobden were directed towards the target under fluoroscopic guidance . after encountering each of the targets , no indication of intravascular intraneuronal or intrathecal needle tip placement. Then 0 .5 to 1 Milliliter was injected at each level. Cobden removed postoperatively. patient transferred to recovery in stable condition to be discharged home after meeting criteria Anesthesia: Local Surgeon: Obed Reyes Condition: stable
== END 2024-01-08 08:22 | disposition home or self-care (01) ==
LOC: SURGOUT 07:26
PROVIDERS: PCP Internal Medicine; Visit Provider Anesthesiology Pain Medicine
DX: M47.816 Spondylosis without myelopathy or radiculopathy, lumbar region (principal)
CPT/HCPCS: 64493; 64494; J0665

== ENCOUNTER 2024-01-16 14:17 | Outpatient (OUT) | payer OTHER, SELFPAY ==
--- NOTE | 2024-01-16 14:47 | PM.CN ---
Consult Note: HPI Data of Consult Patient: known to practice within the last 3 years Requesting Physician: Perlita Cunha NP Primary Care Provider: CHARLIE REA Consult Narrative Reason for consult: f/u Narrative: Magnus García a pleasant 48 year old male presents for evaluation and management of chronic pain. Patient rating pain today 10. RFAs to cervical spine providing 50% pain relief and functional improvement. Patient benefits from current medication regimen and medical marijuana but still continues to have pain with fibromyalgia. Unfortunately patient had no relief from L4-5 LOS, continues to have whole body pain, numbness, tingling, weakness to bilalteral legs. Patient had no relief from left l3/4 l4/5 mbb#1. We will not further work up for facet mediated low back pain. cc:: CC: Perlita Cunha NP Review of Systems ROS Status of ROS 10 or more systems reviewed and unremarkable except as noted in history and below Musculoskeletal Reports: back pain, neck pain and extremity pain PFSH PFSH Medical History Angina at rest ?I20.8 - Other forms of angina pectoris (ICD-10) Anxiety ?F41.9 - Anxiety disorder, unspecified (ICD-10) Bipolar depression ?F31.9 - Bipolar disorder, unspecified (ICD-10) Cancer ?C80.1 - Malignant (primary) neoplasm, unspecified (ICD-10) Cervical spondylosis ?M47.812 - Spondylosis without myelopathy or radiculopathy, cervical region (ICD-10) Chest pain ?R07.9 - Chest pain, unspecified (ICD-10) COPD (chronic obstructive pulmonary disease) ?J44.9 - Chronic obstructive pulmonary disease, unspecified (ICD-10) Fibromyalgia ?M79.7 - Fibromyalgia (ICD-10) Former smoker ?Z87.891 - Personal history of nicotine dependence (ICD-10) BENJAMÍN (generalized anxiety disorder) ?F41.1 - Generalized anxiety disorder (ICD-10) H/O alcohol abuse ?F10.11 - Alcohol abuse, in remission (ICD-10) Low back pain ?M54.50 - Low back pain, unspecified (ICD-10) Muscle spasm ?M62.838 - Other muscle spasm (ICD-10) Neck pain ?M54.2 - Cervicalgia (ICD-10) Numbness and tingling ?R20.0 - Anesthesia of skin (ICD-10) ?R20.2 - Paresthesia of skin (ICD-10) Panic disorder ?F41.0 - Panic disorder [episodic paroxysmal anxiety] (ICD-10) 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 - Unspecified malignant neoplasm of skin, unspecified (ICD-10) Rheumatoid arthritis ?M06.9 - Rheumatoid arthritis, unspecified (ICD-10) TMJ (dislocation of temporomandibular joint) ?S03.00XA - Dislocation of jaw, unspecified side, initial encounter (ICD-10) Surgical History History of surgical removal of skin lesion ?Z98.890 - Other specified postprocedural states (ICD-10) ?Z87.2 - Personal history of diseases of the skin and subcutaneous tissue (ICD-10) History of arthroscopy of right shoulder ?Z98.890 - Other specified postprocedural states (ICD-10) H/O cervical spine surgery ?Z98.890 - Other specified postprocedural states (ICD-10) Family History Father Family history of COPD (chronic obstructive pulmonary disease) Family history of diabetes mellitus Family history of hypertension Mother Family history of COPD (chronic obstructive pulmonary disease) Brother Family history of cancer Uncle Family history of stroke Social History Within the past year, how often did you have a drink containing alcohol: never Within the past year, how often did you have six or more drinks on one occasion: never Score interpretation: A score less than 4 is consistent with normal alcohol consumption. Smoking status: Former smoker Second hand tobacco smoke exposure: Yes Non-prescribed substance use: cannabis (any form) Previous occupational history: unemployed Known occupational exposures/hazards: No Highest level of school completed/degree received: some college, no degree Do you want help with school or training: No Are you now , , , , never or living with a partner: living with partner In a typical week, how many times do you talk on the telephone with family, friends, or neighbors: 3 or more times per week How often do you get together with friends or relatives: 3 or more times per week How often do you attend evangelical or nondenominational services: never Do you belong to any clubs or organizations such as evangelical groups unions, fraternal or athletic groups, or school groups: no Total score: 2 Score interpretation: A score of greater than or equal to 2 indicates the lowest level of social isolation. Little interest or pleasure in doing things: not at all Feeling down, depressed, or hopeless: several days Feel stressed/tense/nervous/anxious/difficulty sleeping: very much Life stressors: other Life stressor details: health Due to disability, difficulty making decisions: No Do you think of yourself as: straight/heterosexual Gender Identity: male Meds Home Medications and Allergies Home Medications Medication Instructions Recorded Confirmed Type acetaminophen 650 mg 1,300 mg PO Q12H PRN pain 05/01/23 01/08/24 History tablet,extended release (8 Hour Pain Reliever) baclofen 10 mg tablet 10 mg PO BID PRN muscle spasm 05/01/23 01/08/24 History cholecalciferol (vitamin D3) 1,250 mcg PO .QD 05/01/23 History mcg/3 mL (50,000 unit/3 mL) oral drops gabapentin 400 mg capsule 400 mg PO TID 05/01/23 01/08/24 History glucosamine-chondroitin 250 mg-200 1 tab PO .AM 05/01/23 01/08/24 History mg tablet (Osteo Bi-Flex) multivitamin 1 tab PO DAILY 05/01/23 01/08/24 History omega-3 fatty acids 500 mg PO DAILY 05/01/23 01/08/24 History quetiapine 50 mg tablet (Seroquel) 75 mg PO .HS 05/01/23 01/08/24 History sertraline 100 mg tablet (Zoloft) 100 mg PO DAILY 05/01/23 01/08/24 History vitamin B complex (Complex B-100 1 tab PO DAILY 05/01/23 01/08/24 History tablet,extended release) fluticasone 250 mcg-salmeterol 50 inhalation 05/08/23 History mcg/dose blistr powdr for inhalation (Advair Diskus) albuterol sulfate 90 mcg/actuation 2 puff inhalation PRN 09/05/23 01/08/24 History aerosol inhaler aqhbzshaog-lcwenbljgtreg-zvzdpthf tab PRN 09/05/23 History 50 mg-325 mg-40 mg tablet hydroxyzine pamoate 25 mg capsule 25 mg PO Q8H PRN anxiety 09/05/23 01/08/24 History (Vistaril) lorazepam 1 mg tablet mg PRN 09/05/23 History quetiapine 100 mg tablet 100 mg .HS 09/05/23 History trazodone 50 mg tablet mg .HS PRN insomnia 09/05/23 History Allergies Allergy/AdvReac Type Severity Reaction Status Date / Time Penicillins Allergy Mild Verified 10/23/23 23:12 Sulfa (Sulfonamide Allergy Mild Verified 10/23/23 23:12 Antibiotics) diclofenac Allergy Verified 10/23/23 23:12 NSAIDS (Non-Steroidal Allergy Verified 10/23/23 23:12 Anti-Inflamma pregabalin [From Lyrica] Allergy Verified 10/23/23 23:12 Exam Narrative Exam Narrative: diffuse pain and tenderness all over Constitutional Documenting provider has reviewed patient's vital signs: yes Common normals: no apparent distress, oriented x3, healthy appearing, alert and well nourished General appearance: cooperative Nutritional appearance: obese HENNV Common normals: normocephalic, hearing grossly normal bilaterally and moist oral mucous membranes Head and scalp: normocephalic Eye Common normals: PERRL Conjunctiva: conjunctiva(e) normal Pupil: PERRL Neck & C-Spine Common normals: full ROM General: normal visual inspection Chest Common normals: inspection of chest normal Respiratory Common normals: normal respiratory effort, no retractions and no use of accessory muscles Effort & inspection: able to speak in complete sentences Auscultation: clear to auscultation bilaterally Cardio Common normals: regular rate, S1 normal heart sound and S2 normal heart sound Rate: regular rate Heart sounds: S1 normal and S2 normal GI Common normals: Normal to inspection, nondistended, normoactive bowel sounds present, soft to palpation, non-tender and no hepatosplenomegaly Palpation: soft and no hepatosplenomegaly Back & Pelvis Thoracic spine/upper back: ROM limited and pain with ROM Lumbar spine/lower back: ROM limited, pain with ROM and straight leg raise negative bilaterally Extremity Common normals: normal to inspection Neuro Common normals: oriented x3, CN's II-XII intact bilaterally, moves all extremities, no focal motor deficits, no sensory deficits noted and deep tendon reflexes 2+ bilaterally Sensorium/orientation: alert Gait (neuro): antalgic Motor exam: strength 5/5 throughout and no movement abnormalities noted Psych Common normals: mental status grossly normal, thought process normal, cooperative, affect normal, speech normal and activity/motor behavior normal Speech: normal speech Thought process: normal thought process Results Additional Findings Additional findings: I have checked an [facility] report on this patient today and there are no aberrancies noted in the prescribing history.?? A drug screen was completed and reviewed within the last year, and if there has not been a drug screen completed we ordered one today to monitor higher risk, state monitored pain medication use. As part of providing excellent, safe, comprehensive care, the following was completed at our patient's visit: 1. A medication reconciliation and review to ensure accurate knowledge of current/active medications, including asking our patients to inform us about any [id number] medications or herbal remedies/nutritional supplements/alternative remedies. 2. A review to specifically ensure our patients have had annual screening for: elevated body mass index (BMI), tobacco use, screening for depression, and screening for unhealthy alcohol use. When screening is concerning, patients are provided with education and the specific recommendation to discuss the concerning health issue and treatment options with their primary care provider. Assessment and Plan Assessment and Plan (1) Myalgia: (2) Fibromyalgia: (3) Lumbar spondylosis: (4) Lumbar radiculopathy: (5) BENJAMÍN (generalized anxiety disorder): (6) H/O alcohol abuse: (7) Low back pain: (8) Numbness and tingling: (9) Panic disorder: (10) Medical marijuana use: Plan unfortunately patient had no relief from L 3-4 LOS and left L3-4 L4-5 MBB #1 patient on numerous medications through psychiatry, PCP, neurology, and our office, as well as medical marijuana. Patient and I discussed polypharmacy and risks. At this time we should not add in any additional medications. continue f/u with psychiatry and neurology aquatic therapy pending f/u as needed. Pt to consider complex pain rehabilitation treatment program at [facility] and NS referral, declining at this time
== END 2024-01-16 14:18 | disposition home or self-care (01) ==
LOC: PM 14:17
PROVIDERS: PCP Internal Medicine; Visit Provider Nurse Practitioner
DX: M79.10 Myalgia, unspecified site (principal); M47.816 Spondylosis without myelopathy or radiculopathy, lumbar region; M54.16 Radiculopathy, lumbar region; F41.9 Anxiety disorder, unspecified; F10.10 Alcohol abuse, uncomplicated; M54.50 Low back pain, unspecified; R20.2 Paresthesia of skin; F41.0 Panic disorder [episodic paroxysmal anxiety]; Z79.899 Other long term (current) drug therapy
CPT/HCPCS: G0463